=== PATIENT | male | born 1965 | race African-American/Black ===

== ENCOUNTER 2018-01-22 10:01 | Observation (INO) | payer OTHER ==
[2018-01-22] MEDS ORDERED: ONDANSETRON ODT 8 MG TAB.RAPDIS PO STA (10:29)
[2018-01-22] MEDS ORDERED: MORPHINE SULFATE 4 MG/ML SYRINGE IVP STA ×3 (10:29→12:34)
[2018-01-22] MEDS ORDERED: SODIUM CHLORIDE 0.9% 1,000 ML IV STA ×2 (10:29→11:08)
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
[2018-01-22] MEDS ORDERED: ONDANSETRON 4 MG/2 ML VIAL IVP STA ×2 (10:53→12:19)
--- NOTE | 2018-01-22 11:14 | XR ---
EXAMINATION TYPE: XR KUB DATE OF EXAM: 01/22/2018 COMPARISON: 11/05/2017 HISTORY: Abdominal pain and nausea TECHNIQUE: One view abdominal series FINDINGS: The osseous structures are intact. The bowel gas pattern is nonspecific. Curvature the spine with po stsurgical change. Arthropathy of the hips. IMPRESSION: 1. Nonspecific abdomen.
[2018-01-22 11:18] LABS: ALT 44 U/L (21-72); AST 31 U/L (17-59); Albumin 4.5 g/dL (3.5-5.0); Alkaline Phosphatase 153 U/L (38-126); Amylase 58 U/L (30-110); Anion Gap 13 mmol/L; Blood Urea Nitrogen 15 mg/dL (9-20); Calcium 9.6 mg/dL (8.4-10.2); Carbon Dioxide 26 mmol/L (22-30); Chloride 105 mmol/L (98-107); Glucose 99 mg/dL (74-99); Lipase 53 U/L (23-300); Potassium 4.2 mmol/L (3.5-5.1); Sodium 144 mmol/L (137-145); Total Bilirubin 0.3 mg/dL (0.2-1.3); Total Protein 7.9 g/dL (6.3-8.2)
[2018-01-22 11:20] LABS: Basophils % (A) 1 %; Eosinophils # (A) 0.2 k/uL (0-0.7); Eosinophils % (A) 3 %; HCT 39.5 % (39.0-53.0); HGB 12.5 gm/dL (13.0-17.5); Lymphocytes # (A) 1.2 k/uL (1.0-4.8); Lymphocytes % (A) 18 %; MCH 27.1 pg (25.0-35.0); MCHC 31.7 g/dL (31.0-37.0); MCV 85.3 fL (80.0-100.0); Mean Platelet Volume 7.6; Monocytes # (A) 0.7 k/uL (0-1.0); Monocytes % (A) 10 %; Neutrophils # (A) 4.5 k/uL (1.3-7.7); Neutrophils % (A) 65 %; Platelet Count 216 k/uL (150-450); RBC 4.63 m/uL (4.30-5.90); RDW 14.5 % (11.5-15.5); WBC 6.9 k/uL (3.8-10.6)
[2018-01-22 11:27] LABS: Creatine Kinase 399 U/L (55-170)
[2018-01-22 11:40] LABS: Creatine Kinase MB 1.4 ng/mL (0.0-2.4); Troponin I <0.012 ng/mL (0.000-0.034)
[2018-01-22 12:27] LABS: Appearance,Urine Clear (Clear); Bilirubin,Urine Negative (Negative); Blood,Urine Negative (Negative); Color,Urine Light Yellow; Glucose,Urine (UA) Negative (Negative); Ketones,Urine Negative (Negative); Leukocyte Esterase,Urine Negative (Negative); Nitrite,Urine Negative (Negative); PH, Urine 7.5 (5.0-8.0); Protein,Urine Negative (Negative); Specific Gravity,Urine 1.008 (1.001-1.035); Urobilinogen,Urine <2.0 mg/dL (<2.0)
[2018-01-22 12:40] LABS: Amphetamine Screen,Urine Not Detected (NotDetected); Barbiturate Screen,Urine Not Detected (NotDetected); Benzodiazepines Screen,Urine Not Detected (NotDetected); Cocaine Screen,Urine Not Detected (NotDetected); Methadone Screen, Urine Not Detected (NotDetected); Opiate Screen,Urine Detected (NotDetected); Oxycodone Screen, Urine Not Detected (NotDetected); Phencyclidine Screen,Urine Not Detected (NotDetected); Tricyclic Antidepressant,Urine Not Detected (NotDetected); Urn Cannabinoid Scrn Detected (NotDetected)
--- NOTE | 2018-01-22 13:44 | US ---
EXAMINATION TYPE: US gallbladder DATE OF EXAM: 01/22/2018 COMPARISON: 11/05/2017 CT CLINICAL HISTORY: RUQ, Epigastric Pain. Cholecystectomy. Difficult and limited exam due to patient pa in- moving and moaning during exam. EXAM MEASUREMENTS: Liver Length: 16.5 cm Gallbladder Wall: Surgically absent CBD: 0.6 cm Right Kidney: 10.6 x 4.7 x 4.8 cm Pancreas: Tail obscured by overlying bowel gas, visualized portions show no abnormality Liver: wnl Gallbladder: Surgically absent CBD: wnl Right Kidney: No hydronephrosis or masses seen IMPRESSION: 1. Postcholecystectomy changes. No evidence of biliary dilation.
[2018-01-22] MEDS ORDERED: NITROGLYCERIN SL TABS 0.4 MG TAB SUBLINGUAL STA (15:04)
[2018-01-22] MEDS ORDERED: SODIUM CHLORIDE 0.9% 1,000 ML IV ONE (15:59)
[2018-01-22] MEDS ORDERED: MORPHINE SULFATE 4 MG/ML SYRINGE IVP PRN (16:01)
[2018-01-22] MEDS: ONDANSETRON 4 MG/2 ML VIAL IVP PRN (16:50)
[2018-01-22 17:30] VITALS: BMI 30.4
[2018-01-22] MEDS ORDERED: HYDROmorphone 0.5 MG/0.5 ML SYRINGE IVP PRN (17:44)
[2018-01-22] MEDS: MORPHINE SULFATE 4 MG/ML SYRINGE IVP PRN ×2 (18:45→22:18)
[2018-01-22] MEDS ORDERED: MAG HYDROX/AL HYDROX/SIMETH 30 ML, HYOSCYAMINE ELIXIR 10 ML, CIMETIDINE HCL 300 MG, LID... PO ONE ×4 (19:11)
[2018-01-22] MEDS ORDERED: PANTOPRAZOLE 40 MG/10 ML VIAL IVP ONE (19:11)
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
[2018-01-22] MEDS: LOSARTAN 25 MG TAB PO SCH ×2 (20:43→20:59)
[2018-01-22] MEDS: SILDENAFIL 20 MG TAB PO SCH (20:44)
[2018-01-22] MEDS: amLODIPine 5 MG TAB PO SCH ×2 (20:44→20:59)
[2018-01-22] MEDS ORDERED: ALPRAZolam 0.25 MG TAB PO STA (23:10)
[2018-01-22] MEDS ORDERED: LORazepam 2 MG/ML INJ IV STA (23:27)
[2018-01-23] MEDS: MORPHINE SULFATE 4 MG/ML SYRINGE IVP PRN ×2 (02:24→05:54)
[2018-01-23 07:00] VITALS: BP 134/71; PULSE 66; RESP 14; TEMP 98
[2018-01-23] MEDS ORDERED: MAG HYDROX/AL HYDROX/SIMETH 30 ML, HYOSCYAMINE ELIXIR 10 ML, CIMETIDINE HCL 300 MG, LID... PO ONE ×4 (09:00)
--- NOTE | 2018-01-23 09:24 | P.DS ---
Providers Date of admission: 01/22/18 15:59 Expected date of discharge: 01/23/18 Attending physician: Anna Berry Primary care physician: Stated None Hospital Course: The patient is a 52-year-old gentleman well-known to me with history of esophageal dysmotility. He had a previous upper endoscopy demonstrating a symptomatic diaphragmatic hernia. For at least 2 year, his symptoms has been well treated with nitrates including Bentyl for his abdominal pain. He reports this morning having his usual routine of oatmeal. Thereafter he had developed acute onset epigastric abdominal pain which had radiated to the left chest as well as right upper quadrant abdominal pain. His history is also significant for previous cholecystectomy as well as appendectomy as well as multiple upper and lower endoscopies as a result. He completed a the manometry system demonstrating jackhammer esophagus which is being medically treated. On the day of discharge patient's symptoms had improved. 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 2. Diaphragmatic hiatal hernia. 3. Gastroesophageal reflux disease. 4. Atypical chest pain. The above impression and plan of care have been discussed and directed by signing physician. Nadia Valles nurse practitioner acting as scribe for signing physician. Plan - Discharge Summary Discharge Rx Participant: No New Discharge Prescriptions: New Lidocaine Viscous 2% [Xylocaine Viscous] 15 ml MUCOUS MEM DIRECTED PRN # 400 ml PRN Reason: Spasms Hyoscyamine Elixir [Levsin 0.125MG/ML Drops] 0.125 mg PO Q6HR PRN #20 ml PRN Reason: Spasms Simethicone 40 mg/0.6 ml Drops [Mylicon Drops] 40 mg PO QID PRN #30 ml PRN Reason: Spasms Continue Dicyclomine [Bentyl] 10 mg PO TID PRN PRN Reason: stomach amLODIPine BESYLATE [Norvasc] 5 mg PO DAILY Losartan [Cozaar] 25 mg PO DAILY oxyCODONE-APAP 10-325MG [Percocet 10-325 mg] 1 tab PO Q8H PRN PRN Reason: Pain Discharge Medication List Dicyclomine [Bentyl] 10 mg PO TID PRN 06/27/16 [History] amLODIPine BESYLATE [Norvasc] 5 mg PO DAILY 08/15/16 [History] Losartan [Cozaar] 25 mg PO DAILY 11/05/17 [History] oxyCODONE-APAP 10-325MG [Percocet 10-325 mg] 1 tab PO Q8H PRN 01/22/18 [History] Hyoscyamine Elixir [Levsin 0.125MG/ML Drops] 0.125 mg PO Q6HR PRN #20 ml [Rx] Lidocaine Viscous 2% [Xylocaine Viscous] 15 ml MUCOUS MEM DIRECTED PRN #400 ml 01/23/18 [Rx] Simethicone 40 mg/0.6 ml Drops [Mylicon Drops] 40 mg PO QID PRN #30 ml 01/23/18 [Rx] Follow up Appointment(s)/Referral(s): Anna Berry MD [STAFF PHYSICIAN] - 02/05/18 None,Stated [Primary Care Provider] - 1-2 days Patient Instructions/Handouts: Esophageal Spasm (GEN) Discharge Disposition: HOME SELF-CARE
[2018-01-23] MEDS: SILDENAFIL 20 MG TAB PO SCH (09:54)
[2018-01-23] MEDS: amLODIPine 5 MG TAB PO SCH (09:54)
[2018-01-23] MEDS: ONDANSETRON 4 MG/2 ML VIAL IVP PRN (09:54)
[2018-01-23] MEDS: LOSARTAN 25 MG TAB PO SCH (09:54)
== END 2018-01-23 10:43 | disposition home or self-care (01) ==
LOC: EC 10:01 → INTOOBSV 15:59 → 4MS4W 15:59 → UNDODISIN 01-23 10:43
PROVIDERS: ADMIT Surgery Plastic and Reconstructive Surgery; ATTEND Surgery Plastic and Reconstructive Surgery
DX: K22.4 Dyskinesia of esophagus (principal); I10 Essential (primary) hypertension; K21.9 Gastro-esophageal reflux disease without esophagitis; K44.9 Diaphragmatic hernia without obstruction or gangrene; R07.89 Other chest pain; M19.90 Unspecified osteoarthritis, unspecified site; M48.00 Spinal stenosis, site unspecified; Z98.1 Arthrodesis status; Z87.891 Personal history of nicotine dependence; Z82.49 Family history of ischemic heart disease and other diseases of the circulatory system; Z82.61 Family history of arthritis; Z90.89 Acquired absence of other organs; Z79.899 Other long term (current) drug therapy; Z90.49 Acquired absence of other specified parts of digestive tract; Z79.891 Long term (current) use of opiate analgesic; Z88.8 Allergy status to other drugs, medicaments and biological substances; Z91.041 Radiographic dye allergy status; Z91.013 Allergy to seafood; Z87.828 Personal history of other (healed) physical injury and trauma
CPT/HCPCS: 96376 ×3; 96375 ×2; 96361; 96374; 99285; 36415; 93005; 80053; 82150; 82550; 82553; 83605; 83690; 83735; 84484; 85025; 81003; 80306; 74018; 76705; G0378 ×2; J2060; J2270 ×2; J2405 ×2; C9113

== ENCOUNTER 2018-03-03 13:22 | Observation (INO) | payer OTHER ==
[2018-03-03] MEDS ORDERED: SODIUM CHLORIDE 0.9% 1,000 ML IV STA (13:48)
[2018-03-03] MEDS ORDERED: KETOROLAC 30 MG/ML 1 ML VIAL IVP STA (13:48)
[2018-03-03] MEDS ORDERED: FAMOTIDINE 20 MG/2 ML VIAL IV STA (13:49)
[2018-03-03] MEDS: ONDANSETRON 4 MG/2 ML VIAL IVP STA ×2 (14:12→15:39)
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
[2018-03-03] MEDS: MORPHINE SULFATE 4MG/4ML SYRG IV STA ×2 (14:13→14:50)
[2018-03-03 14:33] LABS: HGB 12.6 gm/dL (13.0-17.5); MCHC 32.3 g/dL (31.0-37.0); MCV 83.5 fL (80.0-100.0); Mean Platelet Volume 7.8; Platelet Count 219 k/uL (150-450); RBC 4.67 m/uL (4.30-5.90); RDW 14.6 % (11.5-15.5); WBC 4.8 k/uL (3.8-10.6)
[2018-03-03 14:34] LABS: ALT 58 U/L (21-72); AST 37 U/L (17-59); Albumin 4.5 g/dL (3.5-5.0); Alkaline Phosphatase 153 U/L (38-126); Amylase 69 U/L (30-110); Anion Gap 14 mmol/L; Blood Urea Nitrogen 15 mg/dL (9-20); Calcium 9.5 mg/dL (8.4-10.2); Carbon Dioxide 24 mmol/L (22-30); Chloride 104 mmol/L (98-107); Glucose 99 mg/dL (74-99); Lipase 55 U/L (23-300); Potassium 4.2 mmol/L (3.5-5.1); Sodium 142 mmol/L (137-145); Total Bilirubin 0.3 mg/dL (0.2-1.3)
[2018-03-03] MEDS ORDERED: MORPHINE SULFATE 4MG/4ML SYRG ONE (14:49)
[2018-03-03 15:08] LABS: Band Neutrophils % 1 %; Eosinophils # (M) 0.38 k/uL (0-0.7); Lymphocytes # (M) 1.49 k/uL (1.0-4.8); Monocytes # (M) 0.43 k/uL (0-1.0); Neutrophils % (M) 51 %; Nucleated Red Blood Cells 0 /100 WBC (0-0); Total Cells Counted 100
[2018-03-03] MEDS ORDERED: MORPHINE SULFATE 4MG/4ML SYRG IVP STA (15:29)
--- NOTE | 2018-03-03 15:29 | XR ---
EXAMINATION TYPE: XR KUB DATE OF EXAM: 03/03/2018 COMPARISON: 01/22/2018 INDICATION: Abdominal pain, nausea, vomiting TECHNIQUE: Single view abdomen supine view. Upright views obtained. FINDINGS: Nonspecific bowel gas is present. There is a prominent air-filled small bowel loop within the left mi dabdomen. Additional air-filled loops of bowel are present. Air is within the colon. No free air is e vident. Differential air-fluid levels are not evident. Psoas margins are normal. No organomegaly is present. Postsurgical changes are within the lumbar spine. IMPRESSION: 1. Nonspecific abdomen.
[2018-03-03 15:31] LABS: Appearance,Urine Clear (Clear); Bilirubin,Urine Negative (Negative); Blood,Urine Negative (Negative); Color,Urine Light Yellow; Glucose,Urine (UA) Negative (Negative); Ketones,Urine Negative (Negative); Leukocyte Esterase,Urine Negative (Negative); Nitrite,Urine Negative (Negative); PH, Urine 6.5 (5.0-8.0); Protein,Urine Negative (Negative); Specific Gravity,Urine 1.011 (1.001-1.035); Urobilinogen,Urine <2.0 mg/dL (<2.0)
[2018-03-03] MEDS ORDERED: DICYCLOMINE 10 MG/ML 2 ML AMP IM STA (15:48)
[2018-03-03] MEDS: NITROGLYCERIN SL TABS 0.4 MG TAB SUBLINGUAL STA ×3 (16:08→17:24)
[2018-03-03] MEDS ORDERED: MAG HYDROX/AL HYDROX/SIMETH 30 ML, HYOSCYAMINE ELIXIR 10 ML, CIMETIDINE HCL 300 MG, LID... PO ONE ×8 (18:10→18:15)
[2018-03-03] MEDS ORDERED: NALOXONE 0.4 MG/ML 1 ML VIAL IV PRN (18:10)
[2018-03-03] MEDS: MORPHINE SULFATE 4MG/4ML SYRG IV PRN ×2 (19:33→22:38)
[2018-03-03] MEDS: ONDANSETRON 4 MG/2 ML VIAL IVP PRN (19:34)
[2018-03-04] MEDS: MAG HYDROX/AL HYDROX/SIMETH 30 ML, HYOSCYAMINE ELIXIR 10 ML, CIMETIDINE HCL 300 MG, LID... PO SCH ×16 (01:58→17:30)
[2018-03-04] MEDS: MORPHINE SULFATE 4MG/4ML SYRG IV PRN ×4 (01:59→13:07)
[2018-03-04] MEDS: ONDANSETRON 4 MG/2 ML VIAL IVP PRN (05:23)
[2018-03-04] MEDS ORDERED: LOSARTAN 25 MG TAB PO SCH (09:00)
[2018-03-04] MEDS ORDERED: PANTOPRAZOLE 40 MG/10 ML VIAL IV SCH (09:00)
[2018-03-04] MEDS ORDERED: amLODIPine 5 MG TAB PO SCH (09:00)
[2018-03-04] MEDS ORDERED: SODIUM CHLORIDE 0.9% 1,000 ML IV SCH (11:00)
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
[2018-03-04] MEDS ORDERED: fentaNYL (PF) 50 MCG/ML 2 ML AMP ONE (14:31)
[2018-03-04] MEDS ORDERED: LIDOCAINE 1% INJ 10MG/ML (20 ML MDV) ONE (14:31)
[2018-03-04] MEDS ORDERED: PROPOFOL 10 MG/ML 20 ML VIAL IV ONE (14:31)
[2018-03-04] MEDS ORDERED: GLYCOPYRROLATE 0.2 MG/ML 2 ML VIAL ONE (14:31)
[2018-03-04] MEDS ORDERED: IV FLUID CONTINUATION 600 ML IV ONE (14:50)
--- NOTE | 2018-03-04 14:56 | P.PCN ---
Date of Procedure: 03/04/18 Description of Procedure: PREOPERATIVE DIAGNOSIS: Gastroesophageal reflux disease. Jackhammer esophagus Hematemesis Epigastric abdominal pain POSTOPERATIVE DIAGNOSIS: Gastroesophageal reflux disease. Jackhammer esophagus Hematemesis Epigastric abdominal pain Diaphragmatic hiatal hernia without obstruction. OPERATION: Esophagogastroduodenoscopy with biopsies along antrum. SURGEON: Anna Berry MD ANESTHESIA: MAC. INDICATIONS: The patient is a 52-year-old male who presents with a history of reflux disease and hematemesis. Benefits and risks of the procedure were described. Informed consent was obtained. DESCRIPTION: The patient was brought into the endoscopy suite and laid in the left lateral decubitus position. An Olympus gastroscope was passed along the posterior oropharynx down to the distal esophagus where the squamocolumnar junction was encountered at 42 cm from the incisors. The stomach was entered and bile reflux was found and aspirated. Additional findings are listed below. Biopsies with cold forceps were obtained of the antrum. The first through third portion of the duodenum was examined and unremarkable. Retroflexion of the scope confirmed Hill grade 4 lower esophageal valve. The squamocolumnar junction demostrated early and acute LA grade A erosive esophagitis. The stomach was desufflated. The patient tolerated the procedure well. FINDINGS: Squamocolumnar junction 42 cm from the incisors. Diaphragmatic hiatus at 45 cm. Hiatal hernia 3 cm. Hill grade 4 lower esophageal valve. LA grade A erosive esophagitis. No active duodenitis. Superficial gastritis RECOMMENDATIONS: Continue medical therapy. Further recommendations pending results of pathology report. Upper endoscopy as needed. Will benefit from antireflux surgical procedure
[2018-03-04 15:52] VITALS: BP 145/81; PULSE 73; RESP 16; TEMP 98
== END 2018-03-04 18:35 | disposition home or self-care (01) ==
LOC: EC 13:22 → 3SUR 18:10
PROVIDERS: ADMIT Surgery Plastic and Reconstructive Surgery; ATTEND Surgery Plastic and Reconstructive Surgery
DX: R11.2 Nausea with vomiting, unspecified (principal); R10.13 Epigastric pain; R10.31 Right lower quadrant pain; R10.9 Unspecified abdominal pain; K21.0 Gastro-esophageal reflux disease with esophagitis; K44.9 Diaphragmatic hernia without obstruction or gangrene; K22.10 Ulcer of esophagus without bleeding; K92.0 Hematemesis; R19.7 Diarrhea, unspecified; I10 Essential (primary) hypertension; M54.9 Dorsalgia, unspecified; K59.00 Constipation, unspecified; M19.90 Unspecified osteoarthritis, unspecified site; M48.00 Spinal stenosis, site unspecified; Z98.1 Arthrodesis status; G89.29 Other chronic pain; M54.5 Low back pain; Z90.49 Acquired absence of other specified parts of digestive tract; Z87.891 Personal history of nicotine dependence; Z79.899 Other long term (current) drug therapy; Z91.041 Radiographic dye allergy status; Z91.02 Food additives allergy status; Z91.013 Allergy to seafood
CPT/HCPCS: 36415; 43239; 74018; 80053; 81003; 82150; 83605; 83690; 85025; 88305; 93005; 96361; 96372; 96374; 96375; 96376; 99285

== ENCOUNTER 2018-03-27 06:34 | Emergency (ER) | payer OTHER ==
[2018-03-27] MEDS ORDERED: MORPHINE SULFATE 4 MG/ML SYRINGE IV STA (06:49)
[2018-03-27] MEDS ORDERED: ONDANSETRON 4 MG/2 ML VIAL IVP STA (06:49)
[2018-03-27 07:09] LABS: Basophils % (A) 1 %; Eosinophils # (A) 0.3 k/uL (0-0.7); Eosinophils % (A) 5 %; HCT 38.4 % (39.0-53.0); HGB 12.4 gm/dL (13.0-17.5); Lymphocytes # (A) 1.7 k/uL (1.0-4.8); Lymphocytes % (A) 33 %; MCH 26.6 pg (25.0-35.0); MCHC 32.2 g/dL (31.0-37.0); MCV 82.5 fL (80.0-100.0); Mean Platelet Volume 7.6; Monocytes # (A) 0.7 k/uL (0-1.0); Monocytes % (A) 13 %; Neutrophils # (A) 2.2 k/uL (1.3-7.7); Neutrophils % (A) 43 %; Platelet Count 224 k/uL (150-450); RBC 4.66 m/uL (4.30-5.90); RDW 14.3 % (11.5-15.5)
[2018-03-27 07:21] LABS: ALT 40 U/L (21-72); AST 40 U/L (17-59); Albumin 4.4 g/dL (3.5-5.0); Alkaline Phosphatase 129 U/L (38-126); Amylase 60 U/L (30-110); Anion Gap 16 mmol/L; Blood Urea Nitrogen 18 mg/dL (9-20); Calcium 9.3 mg/dL (8.4-10.2); Carbon Dioxide 21 mmol/L (22-30); Chloride 108 mmol/L (98-107); Glucose 98 mg/dL (74-99); Lipase 76 U/L (23-300); Potassium 4.5 mmol/L (3.5-5.1); Sodium 145 mmol/L (137-145); Total Bilirubin 0.5 mg/dL (0.2-1.3); Total Protein 7.8 g/dL (6.3-8.2)
[2018-03-27 07:39] LABS: Creatine Kinase 436 U/L (55-170)
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
[2018-03-27 07:52] LABS: Creatine Kinase MB 1.7 ng/mL (0.0-2.4); Troponin I <0.012 ng/mL (0.000-0.034)
--- NOTE | 2018-03-27 08:00 | XR ---
EXAMINATION TYPE: XR chest 2V DATE OF EXAM: 03/27/2018 COMPARISON: 10/03/2016 HISTORY: 52-year-old male with right flank and abdominal pain TECHNIQUE: PA and lateral views FINDINGS: Heart normal size. Aorta within normal limits. Mild interstitial prominence is similar. No consolidat ion or pleural effusion. IMPRESSION: Chronic changes, possible chronic bronchitis/asthma. No acute cardiopulmonary process.
--- NOTE | 2018-03-27 08:01 | XR ---
EXAMINATION TYPE: XR KUB DATE OF EXAM: 03/27/2018 CLINICAL DATA: 52-year-old male with abdominal pain, [facility] COMPARISON: 03/03/2018 FINDINGS: Lung bases are clear. No evidence for free intraperitoneal air. Scattered small bowel and colonic gas is present without any differential air-fluid levels abnormal b owel dilatation. Lumbar fusion hardware. No suspicious calcifications. Degenerative changes at both hips. IMPRESSION: Nonspecific, nonobstructive bowel gas pattern. No free air.
[2018-03-27 08:52] VITALS: RESP 18
[2018-03-27 09:06] LABS: Appearance,Urine Clear (Clear); Bilirubin,Urine Negative (Negative); Blood,Urine Negative (Negative); Color,Urine Light Yellow; Glucose,Urine (UA) Negative (Negative); Ketones,Urine Negative (Negative); Leukocyte Esterase,Urine Negative (Negative); Nitrite,Urine Negative (Negative); PH, Urine 5.5 (5.0-8.0); Protein,Urine Negative (Negative); Specific Gravity,Urine 1.015 (1.001-1.035); Urobilinogen,Urine <2.0 mg/dL (<2.0)
[2018-03-27] MEDS ORDERED: KETOROLAC 60 MG/2 ML VIAL IVP STA (09:17)
[2018-03-27 09:41] VITALS: BP 163/75; PULSE 65; TEMP 98.1
== END 2018-03-27 09:52 | disposition home or self-care (01) ==
LOC: EC 06:34
DX: R10.9 Unspecified abdominal pain (principal); G89.29 Other chronic pain; I10 Essential (primary) hypertension; Z90.49 Acquired absence of other specified parts of digestive tract; Z91.013 Allergy to seafood; Z91.041 Radiographic dye allergy status; Z91.048 Other nonmedicinal substance allergy status; Z79.899 Other long term (current) drug therapy; Z87.891 Personal history of nicotine dependence
CPT/HCPCS: 99285; 96374; 96375 ×2; 36415; 93005; 80053; 82150; 82550; 82553; 83690; 84484; 85025; 81003; 71046; 74018; J2270; J2405; J1885

== ENCOUNTER 2018-06-17 09:31 | Emergency (ER) | payer OTHER ==
[2018-06-17] MEDS ORDERED: MAG HYDROX/AL HYDROX/SIMETH 30 ML, HYOSCYAMINE ELIXIR 10 ML, CIMETIDINE HCL 300 MG, LID... PO STA ×4 (09:43)
[2018-06-17] MEDS ORDERED: SODIUM CHLORIDE 0.9% 1,000 ML IV STA (09:43)
[2018-06-17] MEDS ORDERED: ONDANSETRON 4 MG/2 ML VIAL IVP STA (09:43)
[2018-06-17] MEDS ORDERED: KETOROLAC 30 MG/ML 1 ML VIAL IVP STA (09:43)
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
[2018-06-17 10:12] LABS: HCT 39.1 % (39.0-53.0); HGB 12.6 gm/dL (13.0-17.5); MCH 26.6 pg (25.0-35.0); MCHC 32.1 g/dL (31.0-37.0); MCV 82.8 fL (80.0-100.0); Mean Platelet Volume 7.9; Platelet Count 205 k/uL (150-450); RBC 4.72 m/uL (4.30-5.90); RDW 15.1 % (11.5-15.5)
[2018-06-17] MEDS ORDERED: MORPHINE SULFATE 4 MG/ML SYRINGE IVP STA (10:19)
[2018-06-17 10:22] LABS: Amylase 91 U/L (30-110); Lipase 110 U/L (23-300)
[2018-06-17 10:23] LABS: ALT 58 U/L (21-72); AST 38 U/L (17-59); Albumin 4.5 g/dL (3.5-5.0); Alkaline Phosphatase 138 U/L (38-126); Anion Gap 9 mmol/L; Blood Urea Nitrogen 21 mg/dL (9-20); Calcium 9.4 mg/dL (8.4-10.2); Carbon Dioxide 23 mmol/L (22-30); Chloride 110 mmol/L (98-107); Glucose 99 mg/dL (74-99); Partial Thromboplastin Time 25.3 sec (22.0-30.0); Potassium 4.3 mmol/L (3.5-5.1); Sodium 142 mmol/L (137-145); Total Bilirubin 0.3 mg/dL (0.2-1.3)
[2018-06-17 10:43] LABS: Appearance,Urine Clear (Clear); Bilirubin,Urine Negative (Negative); Blood,Urine Negative (Negative); Color,Urine Light Yellow; Glucose,Urine (UA) Negative (Negative); Ketones,Urine Negative (Negative); Leukocyte Esterase,Urine Negative (Negative); Nitrite,Urine Negative (Negative); PH, Urine 5.5 (5.0-8.0); Protein,Urine Negative (Negative); Specific Gravity,Urine 1.013 (1.001-1.035); Urobilinogen,Urine <2.0 mg/dL (<2.0)
[2018-06-17 10:43] LABS: Band Neutrophils % 1 %; Basophils # (M) 0.05 k/uL (0-0.2); Neutrophils % (M) 44 %; Nucleated Red Blood Cells 0 /100 WBC (0-0); Total Cells Counted 100
--- NOTE | 2018-06-17 11:10 | XR ---
EXAMINATION TYPE: XR KUB DATE OF EXAM: 06/17/2018 COMPARISON: 03/27/2018 HISTORY: Pain TECHNIQUE: One view abdominal series FINDINGS: The osseous structures are intact. The bowel gas pattern is nonspecific. Lung bases are clear. Post surgical changes are noted with hypertrophic and degenerative change of the spine. Few prominent smal l bowel loops are noted. Arthropathy of the hip joints. IMPRESSION: 1. Nonspecific abdomen. There are few prominent small bowel loops could be associated with an ileus or enteritis. Partial obstruction not entirely excluded correlate clinically.
[2018-06-17] MEDS ORDERED: methylPREDNISolone SOD SUCCI 125 MG/2 ML VIAL IV STA (11:13)
[2018-06-17] MEDS ORDERED: diphenhydrAMINE 50 MG/ML 1 ML VIAL IVP STA (11:13)
[2018-06-17] MEDS ORDERED: FAMOTIDINE 20 MG/2 ML VIAL IV STA (11:13)
[2018-06-17] MEDS ORDERED: fentaNYL (PF) 50 MCG/ML 2 ML AMP IV STA (11:33)
--- NOTE | 2018-06-17 12:27 | CT ---
EXAMINATION TYPE: CT abdomen pelvis w con DATE OF EXAM: 06/17/2018 COMPARISON: None INDICATION: Right sided pain with nausea DLP: 1084.4 mGycm, Automated exposure control for dose reduction was used. CONTRAST: 100 mL of Isovue 300. Study performed without Oral Contrast TECHNIQUE: Axial images were obtained from above the diaphragm to the pubic rami in the axial plane a t 5 mm thick sections. Reconstructed images are reviewed on the computer in the coronal plane. FINDINGS: Limited CT sections are obtained the lung bases. The lung bases are clear. CT ABDOMEN: Liver: Normal Spleen: Normal Pancreas: Normal Adrenal glands: The adrenal glands are normal. Gallbladder: Not visualized. Kidneys: No masses are evident. No hydronephrosis is present. No cysts are present. Delayed images were obtained through the kidneys, which remain unremarkable. Aorta: Vascular calcification is within the aorta. Inferior vena cava: Normal. CT PELVIS: There is some limitation within the mid abdomen and pelvis due to beam hardening artifact from prior lumbar surgery. Loops of bowel within the abdomen and pelvis are normal. Studies performed without oral contrast limiting the evaluation. Appendix: What appears to be a be the appendix is normal. No suspicious dilated tubular structure inf lammatory changes are evident. Urinary bladder: Decompressed with some limited evaluation. Genitourinary structures: Prostate appears within normal limits. Osseous structures: No suspicious lytic or sclerotic lesions. Postsurgical changes are through the inna mbar spine. IMPRESSIONS: 1. No suspicious abnormality to account for patient's right side abdomen pain
[2018-06-17] MEDS ORDERED: ONDANSETRON 4 MG ODT STARTER PACK 2 TAB BTL PO STA (12:42)
[2018-06-17 13:23] VITALS: BP 132/64; PULSE 68; RESP 18; TEMP 96.9
== END 2018-06-17 13:23 | disposition home or self-care (01) ==
LOC: EC 09:31
DX: R10.11 Right upper quadrant pain (principal); R10.13 Epigastric pain; G89.29 Other chronic pain; R11.2 Nausea with vomiting, unspecified; R19.7 Diarrhea, unspecified; I10 Essential (primary) hypertension; K21.9 Gastro-esophageal reflux disease without esophagitis; Z87.891 Personal history of nicotine dependence; Z79.899 Other long term (current) drug therapy; Z91.041 Radiographic dye allergy status; Z91.013 Allergy to seafood; Z91.018 Allergy to other foods; Z87.19 Personal history of other diseases of the digestive system; Z90.49 Acquired absence of other specified parts of digestive tract
CPT/HCPCS: 99284; 96374; 96375 ×6; 96361; 36415; 80053; 82150; 83690; 85025; 85610; 85730; 81003; 74018; 74177; J2270; J1200; J2930; J2405; J3010; J1885; S0119; Q9967

== ENCOUNTER 2018-07-20 10:08 | Emergency (ER) | payer OTHER ==
[2018-07-20 10:15] VITALS: RESP 18
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
[2018-07-20 11:07] LABS: Basophils % (A) 1 %; Eosinophils # (A) 0.3 k/uL (0-0.7); Eosinophils % (A) 6 %; HCT 39.1 % (39.0-53.0); HGB 12.5 gm/dL (13.0-17.5); Lymphocytes # (A) 1.4 k/uL (1.0-4.8); Lymphocytes % (A) 36 %; MCH 26.6 pg (25.0-35.0); MCHC 31.9 g/dL (31.0-37.0); MCV 83.4 fL (80.0-100.0); Mean Platelet Volume 7.7; Monocytes # (A) 0.5 k/uL (0-1.0); Monocytes % (A) 12 %; Neutrophils # (A) 1.6 k/uL (1.3-7.7); Neutrophils % (A) 41 %; Platelet Count 216 k/uL (150-450); RBC 4.69 m/uL (4.30-5.90); RDW 14.7 % (11.5-15.5); WBC 3.9 k/uL (3.8-10.6)
[2018-07-20 11:20] LABS: Partial Thromboplastin Time 25.6 sec (22.0-30.0); Prothrombin Time 9.8 sec (9.0-12.0)
[2018-07-20 11:23] LABS: ALT 40 U/L (21-72); AST 29 U/L (17-59); Albumin 4.1 g/dL (3.5-5.0); Alkaline Phosphatase 116 U/L (38-126); Anion Gap 10 mmol/L; Blood Urea Nitrogen 19 mg/dL (9-20); Calcium 9.2 mg/dL (8.4-10.2); Carbon Dioxide 24 mmol/L (22-30); Chloride 107 mmol/L (98-107); Glucose 98 mg/dL (74-99); Potassium 4.2 mmol/L (3.5-5.1); Sodium 141 mmol/L (137-145); Total Bilirubin 0.4 mg/dL (0.2-1.3); Total Protein 7.7 g/dL (6.3-8.2)
--- NOTE | 2018-07-20 11:33 | CT ---
EXAMINATION TYPE: CT brain wo con DATE OF EXAM: 07/20/2018 COMPARISON: NONE HISTORY: left sided facial numbness CT DLP: 1031.2 mGycm Automated exposure control for dose reduction was used. FINDINGS: Central structures are midline. There is no evidence of hydrocephalus. No acute focal lesion, mass ef fect or midline shift is seen. I do not see evidence of intracranial blood. There is a 1.9 cm retention cyst or polyp in the right maxillary sinus. There is mild mucosal thicken ing involving the ethmoid sinuses. The bony calvarium is intact. IMPRESSION: 1. NO ACUTE INTRACRANIAL ABNORMALITY. 2. SINUS MUCOSAL DISEASE.
[2018-07-20 12:34] VITALS: BP 147/87; PULSE 51; TEMP 98.3
== END 2018-07-20 12:34 | disposition home or self-care (01) ==
LOC: EC 10:08
DX: H11.32 Conjunctival hemorrhage, left eye (principal); R51 Headache; I10 Essential (primary) hypertension; Z87.891 Personal history of nicotine dependence; Z79.899 Other long term (current) drug therapy; Z91.041 Radiographic dye allergy status; Z91.013 Allergy to seafood; Z91.048 Other nonmedicinal substance allergy status
CPT/HCPCS: 36415; 70450; 80053; 84484; 85025; 85610; 85730; 93005; 99284

== ENCOUNTER 2018-11-10 12:17 | Observation (INO) | payer OTHER ==
[2018-11-10] MEDS ORDERED: FAMOTIDINE 20 MG/2 ML VIAL IV STA (13:08)
[2018-11-10] MEDS ORDERED: LORazepam 2 MG/ML INJ IV STA (13:08)
[2018-11-10] MEDS ORDERED: SODIUM CHLORIDE 0.9% 1,000 ML IV STA (13:08)
[2018-11-10] MEDS ORDERED: DICYCLOMINE 10 MG/ML 2 ML AMP IM STA (13:08)
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
[2018-11-10] MEDS: ONDANSETRON 4 MG/2 ML VIAL IVP STA ×2 (13:27→15:41)
[2018-11-10 14:07] LABS: Basophils % (A) 1 %; Eosinophils # (A) 0.2 k/uL (0-0.7); Eosinophils % (A) 4 %; HCT 41.7 % (39.0-53.0); HGB 12.8 gm/dL (13.0-17.5); Lymphocytes # (A) 1.4 k/uL (1.0-4.8); Lymphocytes % (A) 32 %; MCH 25.5 pg (25.0-35.0); MCHC 30.8 g/dL (31.0-37.0); MCV 82.9 fL (80.0-100.0); Mean Platelet Volume 7.2; Monocytes # (A) 0.4 k/uL (0-1.0); Monocytes % (A) 9 %; Neutrophils # (A) 2.2 k/uL (1.3-7.7); Neutrophils % (A) 50 %; Platelet Count 217 k/uL (150-450); RBC 5.03 m/uL (4.30-5.90); RDW 14.8 % (11.5-15.5); WBC 4.4 k/uL (3.8-10.6)
[2018-11-10 14:08] LABS: INR 0.9 (<1.2); Partial Thromboplastin Time 25.5 sec (22.0-30.0)
[2018-11-10 14:16] LABS: ALT 34 U/L (21-72); AST 27 U/L (17-59); Albumin 4.7 g/dL (3.5-5.0); Alkaline Phosphatase 128 U/L (38-126); Amylase 73 U/L (30-110); Anion Gap 11 mmol/L; Blood Urea Nitrogen 16 mg/dL (9-20); Calcium 9.6 mg/dL (8.4-10.2); Carbon Dioxide 23 mmol/L (22-30); Chloride 109 mmol/L (98-107); Glucose 98 mg/dL (74-99); Lipase 54 U/L (23-300); Potassium 4.2 mmol/L (3.5-5.1); Sodium 143 mmol/L (137-145); Total Bilirubin 0.4 mg/dL (0.2-1.3); Total Protein 8.6 g/dL (6.3-8.2)
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
[2018-11-10] MEDS ORDERED: diphenhydrAMINE 50 MG/ML 1 ML VIAL IVP STA (14:59)
[2018-11-10] MEDS ORDERED: MAG HYDROX/AL HYDROX/SIMETH 30 ML, HYOSCYAMINE ELIXIR 10 ML, CIMETIDINE HCL 300 MG, LID... PO STA ×4 (15:31)
[2018-11-10] MEDS ORDERED: SODIUM CHLORIDE 0.9% 2,000 ML IV STA (16:05)
[2018-11-10] MEDS ORDERED: ACETAMINOPHEN TAB 325 MG TAB PO PRN (16:07)
[2018-11-10] MEDS ORDERED: PANTOPRAZOLE 40 MG/10 ML VIAL IV SCH (16:15)
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
[2018-11-10] MEDS: KETOROLAC 30 MG/ML 1 ML VIAL IVP SCH ×2 (17:11→23:23)
[2018-11-10] MEDS: DEXAMETHASONE SOD PHOSPHATE 4 MG/ML 1 ML VIAL IV SCH ×2 (19:08→23:23)
[2018-11-10] MEDS: LORazepam 2 MG/ML INJ IV PRN (21:20)
[2018-11-10] MEDS: PANTOPRAZOLE 40 MG/10 ML VIAL IV SCH (21:20)
[2018-11-10] MEDS ORDERED: DICYCLOMINE 20 MG TAB PO SCH (22:00)
[2018-11-10] MEDS ORDERED: IMIPRAMINE 25 MG TAB PO SCH (22:15)
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
[2018-11-10] MEDS: HEPARIN SODIUM,PORCINE 5,000 UNIT/ML 1 ML VIAL SQ SCH (23:31)
[2018-11-10] MEDS ORDERED: cloNIDine HCL 0.2 MG TAB PO PRN (23:54)
[2018-11-11] MEDS: KETOROLAC 30 MG/ML 1 ML VIAL IVP SCH ×2 (05:54→12:04)
[2018-11-11] MEDS: DEXAMETHASONE SOD PHOSPHATE 4 MG/ML 1 ML VIAL IV SCH (05:55)
[2018-11-11 06:38] LABS: Appearance,Urine Clear (Clear); Bilirubin,Urine Negative (Negative); Blood,Urine Small (Negative); Color,Urine Yellow; Glucose,Urine (UA) Negative (Negative); Ketones,Urine 1+ (Negative); Leukocyte Esterase,Urine Negative (Negative); Mucus,Urine Rare /hpf; Nitrite,Urine Negative (Negative); PH, Urine 6.5 (5.0-8.0); Protein,Urine 1+ (Negative); RBC,Urine 6 /hpf (0-5); Specific Gravity,Urine 1.014 (1.001-1.035); Urobilinogen,Urine <2.0 mg/dL (<2.0); WBC,Urine 1 /hpf (0-5)
[2018-11-11] MEDS: PANTOPRAZOLE 40 MG/10 ML VIAL IV SCH (08:00)
[2018-11-11] MEDS ORDERED: ONDANSETRON 4 MG/2 ML VIAL IVP STA (08:03)
[2018-11-11] MEDS: LORazepam 2 MG/ML INJ IV PRN (08:10)
[2018-11-11] MEDS: HEPARIN SODIUM,PORCINE 5,000 UNIT/ML 1 ML VIAL SQ SCH ×2 (08:48→16:05)
[2018-11-11] MEDS ORDERED: amLODIPine 5 MG TAB PO SCH (09:00)
[2018-11-11] MEDS ORDERED: LOSARTAN 25 MG TAB PO SCH (09:00)
[2018-11-11] MEDS ORDERED: MAG HYDROX/AL HYDROX/SIMETH 30 ML, HYOSCYAMINE ELIXIR 10 ML, CIMETIDINE HCL 300 MG, LID... PO SCH ×8 (09:06)
[2018-11-11] MEDS ORDERED: HYDROmorphone 1 MG/ML 1 ML SYRINGE IVP STA (09:31)
[2018-11-11] MEDS: MAG HYDROX/AL HYDROX/SIMETH 30 ML, HYOSCYAMINE ELIXIR 10 ML, CIMETIDINE HCL 300 MG, LID... PO SCH ×8 (10:26→16:04)
--- NOTE | 2018-11-11 12:04 | P.PN ---
Subjective Progress Note Date: 11/11/18 Patient with known history of symptomatic hiatal hernia including jackhammer esophagus. He is requesting Dilaudid. He takes Percocet 10. He sees his orthopedic back Dr. Dr. Rashid. Despite IV Tylenol including Toradol, patient reports severe pain causing nausea and emesis. Dilaudid given. Discharge pending patient's clinical improvement. Outpatient management for hiatal hernia repair reviewed. Objective - Vital Signs Vital signs: Vital Signs Temp 98.1 F 11/11/18 07:00 Pulse 73 11/11/18 07:00 Resp 20 11/11/18 07:15 BP 169/84 11/11/18 07:00 Pulse Ox 99 11/11/18 07:00 Intake & Output 11/10/18 11/11/18 11/11/18 18:59 06:59 18:59 Intake Total 3790 Balance 3790 Weight 113.398 kg Intake: Intake, IV Titration 3000 Amount Sodium Chloride 0.9% 1, 1000 000 ml @ 999 mls/hr IV . Q1H1M STA Rx#:[id number] Sodium Chloride 0.9% 2, 2000 000 ml @ 999 mls/hr IV . Q2H1M STA Rx#:[id number] Oral 790 Other: Voiding Method Toilet Toilet Urinal Urinal # Voids 1 # Bowel Movements 0 - Labs CBC & Chem 7: 11/10/18 13:23 11/10/18 13:23 Labs: Abnormal Lab Results - Last 24 Hours (Table) 11/10/18 11/10/18 11/11/18 Range/Units 13:23 13:23 06:07 Hgb 12.8 L (13.0-17.5) gm/dL MCHC 30.8 L (31.0-37.0) g/dL Chloride 109 H (98-107) mmol/L Alkaline Phosphatase 128 H (38-126) U/L Total Protein 8.6 H (6.3-8.2) g/dL Urine Protein 1+ H (Negative) Urine Ketones 1+ H (Negative) Urine Blood Small H (Negative) Urine RBC 6 H (0-5) /hpf Urine Mucus Rare H (None) /hpf Assessment and Plan (1) Intractable abdominal pain Current Visit: No Status: Acute Code(s): R10.9 - UNSPECIFIED ABDOMINAL PAIN SNOMED Code(s): 45000815 (2) Intractable epigastric abdominal pain Current Visit: No Status: Acute Code(s): R10.13 - EPIGASTRIC PAIN SNOMED Code(s): 93102832 (3) Lumbar radicular syndrome Current Visit: No Status: Acute Code(s): M54.16 - RADICULOPATHY, LUMBAR REGION SNOMED Code(s): 817920996 (4) GERD (gastroesophageal reflux disease) Current Visit: No Status: Chronic Code(s): K21.9 - GASTRO-ESOPHAGEAL REFLUX DISEASE WITHOUT ESOPHAGITIS SNOMED Code(s): 831142269 (5) Jackhammer esophagus Current Visit: No Status: Chronic Code(s): K22.9 - DISEASE OF ESOPHAGUS, UNSPECIFIED SNOMED Code(s): 288760509 (6) Right upper quadrant abdominal pain Current Visit: No Status: Chronic Code(s): R10.11 - RIGHT UPPER QUADRANT PAIN SNOMED Code(s): 409221726 (7) Hiatal hernia Current Visit: No Status: Chronic Code(s): K44.9 - DIAPHRAGMATIC HERNIA WITHOUT OBSTRUCTION OR GANGRENE SNOMED Code(s): 58094119
[2018-11-11] MEDS ORDERED: SCOPOLAMINE 1.5MG/72HR PATCH TRANSDERM STA (13:02)
[2018-11-11] MEDS ORDERED: DEXAMETHASONE SOD PHOSPHATE 10 MG/ML 1 ML VIAL IV STA (13:02)
[2018-11-11] MEDS ORDERED: oxyCODONE-APAP 10-325MG 1 EACH TAB PO PRN (13:02)
[2018-11-11] MEDS ORDERED: SODIUM CHLORIDE 0.9% 2,000 ML IV ONE (13:02)
[2018-11-11] MEDS ORDERED: ONDANSETRON 4 MG/2 ML VIAL IVP PRN (14:58)
--- NOTE | 2018-11-11 14:58 | P.PN ---
Subjective Progress Note Date: 11/11/18 Principal diagnosis: Epigastric pain Patient seen and examined. No acute events overnight. Patient complains of severe epigastric pain, 10 out of 10 in severity. He has a diagnosis of hiatal hernia and jackhammer esophagus. He was given Dilaudid injections this morning. Patient also reports intense nausea and vomiting, partially relieved with Zofran. Objective - Vital Signs Vital signs: Vital Signs Temp 98.1 F 11/11/18 07:00 Pulse 73 11/11/18 07:00 Resp 20 11/11/18 07:15 BP 169/84 11/11/18 07:00 Pulse Ox 99 11/11/18 07:00 Intake & Output 11/10/18 11/11/18 11/11/18 18:59 06:59 18:59 Intake Total 3790 Balance 3790 Weight 113.398 kg Intake: Intake, IV Titration 3000 Amount Sodium Chloride 0.9% 1, 1000 000 ml @ 999 mls/hr IV . Q1H1M STA Rx#:[id number] Sodium Chloride 0.9% 2, 2000 000 ml @ 999 mls/hr IV . Q2H1M STA Rx#:[id number] Oral 790 Other: Voiding Method Toilet Toilet Urinal Urinal # Voids 1 # Bowel Movements 0 - Exam General: [non toxic], [in acute distress], [appears at stated age] Derm: [warm], [dry] Head: [atraumatic], [normocephalic], [symmetric] Eyes: [EOMI], [no lid lag], [anicteric sclera] Mouth: [no lip lesion], [mucus membranes moist] Cardiovascular: [S1S2 reg], [no murmur], [positive DP pulse bilateral] Lungs: [CTA bilateral], [no rhonchi, no rales] , [no accessory muscle use] Abdominal: [soft], [epigastric tenderness to palpation without rebound], [no guarding], [no appreciable organomegaly] Ext: [no gross muscle atrophy], [no edema], [no contractures] Neuro: [no focal neuro deficits] Psych: [Alert], [oriented], [appropriate affect] - Labs CBC & Chem 7: 11/10/18 13:23 11/10/18 13:23 Labs: Abnormal Lab Results - Last 24 Hours (Table) 11/11/18 Range/Units 06:07 Urine Protein 1+ H (Negative) Urine Ketones 1+ H (Negative) Urine Blood Small H (Negative) Urine RBC 6 H (0-5) /hpf Urine Mucus Rare H (None) /hpf Assessment and Plan Assessment: Assessment and Plan 1. Hiatal hernia with jackhammer esophagus: Pain management with Tylenol, Lidocaine viscous, Toradol IV PRN, Oxycodone IV PRN. Protonix 40 mg IV BID. Management as per primary team. 2. Hypertension: BP 169/84. Continue Amlodipine 5 mg PO QD, Clonidine 0.2 mg PO TID PRN. Monitor vitals, adjust medications as necessary. 3. DVT/GI Prophylaxis: Heparin 5000 units TID. Protonix. Patient in severe epigastric pain requiring IV Dilaudid. Patient is pending clinical improvement. Thank you for the consult, please call if any additional questions.
[2018-11-11 15:38] VITALS: BP 173/76; PULSE 69; RESP 16; TEMP 98.2
--- NOTE | 2018-11-11 17:20 | P.DS ---
Providers Date of admission: 11/10/18 16:04 Expected date of discharge: 11/11/18 Attending physician: Anna Berry Consults: 11/10/18 17:06 Consult Physician Routine Consulting Provider: Vernon Ellis Consult Reason/Comments: Medical management Do you want consulting provider notified?: Yes Primary care physician: Stated None - Discharge Diagnosis(es) (1) Intractable abdominal pain Current Visit: No Status: Acute (2) Intractable epigastric abdominal pain Current Visit: No Status: Acute (3) Lumbar radicular syndrome Current Visit: No Status: Acute (4) GERD (gastroesophageal reflux disease) Current Visit: No Status: Chronic (5) Jackhammer esophagus Current Visit: No Status: Chronic (6) Right upper quadrant abdominal pain Current Visit: No Status: Chronic (7) Hiatal hernia Current Visit: No Status: Chronic Hospital Course: He responded to Dilaudid 2 mg with improvement of his abdominal pain. With his high pain needs, he was advised to see a pain specialist to manage his narcotics. Follow up in the office as outpatient for treatment of his esophageal dysmotility. Plan - Discharge Summary Discharge Rx Participant: Yes New Discharge Prescriptions: No Action amLODIPine BESYLATE [Norvasc] 5 mg PO DAILY Losartan [Cozaar] 25 mg PO DAILY Tadalafil [Cialis] 5 mg PO DIRECTED PRN PRN Reason: E.D. oxyCODONE-APAP 10-325MG [Percocet 10-325 mg] 1 tab PO TID PRN PRN Reason: Pain Dicyclomine [Bentyl] 20 mg PO TID Discharge Medication List amLODIPine BESYLATE [Norvasc] 5 mg PO DAILY 08/15/16 [History] Losartan [Cozaar] 25 mg PO DAILY 11/05/17 [History] Tadalafil [Cialis] 5 mg PO DIRECTED PRN 06/17/18 [History] oxyCODONE-APAP 10-325MG [Percocet 10-325 mg] 1 tab PO TID PRN 06/17/18 [History] Dicyclomine [Bentyl] 20 mg PO TID 11/10/18 [History] Follow up Appointment(s)/Referral(s): None,Stated [Primary Care Provider] - 1-2 days
== END 2018-11-11 19:26 | disposition home or self-care (01) ==
LOC: EC 12:17 → 4SSUR 16:04
PROVIDERS: ADMIT Surgery Plastic and Reconstructive Surgery; ATTEND Surgery Plastic and Reconstructive Surgery
DX: R10.13 Epigastric pain (principal); K22.4 Dyskinesia of esophagus; I16.0 Hypertensive urgency; K44.9 Diaphragmatic hernia without obstruction or gangrene; I10 Essential (primary) hypertension; R07.89 Other chest pain; R11.2 Nausea with vomiting, unspecified; R10.11 Right upper quadrant pain; G89.29 Other chronic pain; M54.5 Low back pain; K21.9 Gastro-esophageal reflux disease without esophagitis; M48.00 Spinal stenosis, site unspecified; K59.00 Constipation, unspecified; M19.90 Unspecified osteoarthritis, unspecified site; M54.16 Radiculopathy, lumbar region; Z79.899 Other long term (current) drug therapy; Z91.041 Radiographic dye allergy status; Z91.013 Allergy to seafood; Z91.048 Other nonmedicinal substance allergy status; Z90.49 Acquired absence of other specified parts of digestive tract; Z98.1 Arthrodesis status; Z87.891 Personal history of nicotine dependence; Z82.49 Family history of ischemic heart disease and other diseases of the circulatory system; Z82.61 Family history of arthritis
CPT/HCPCS: 36415; 74018; 80053; 81001; 82150; 83605; 83690; 83735; 85025; 85610; 85730; 96361; 96372; 96374; 96375; 96376; 99285

== ENCOUNTER 2018-11-12 09:08 | Emergency (ER) | payer OTHER ==
[2018-11-12] MEDS ORDERED: MORPHINE SULFATE 4 MG/ML SYRINGE IV STA (09:49)
[2018-11-12] MEDS ORDERED: ONDANSETRON 4 MG/2 ML VIAL IVP STA (09:49)
[2018-11-12] MEDS ORDERED: SODIUM CHLORIDE 0.9% 1,000 ML IV STA (09:49)
[2018-11-12] MEDS ORDERED: LORazepam 2 MG/ML INJ IV STA ×2 (09:50→11:42)
[2018-11-12] MEDS ORDERED: DICYCLOMINE 10 MG/ML 2 ML AMP IM STA (09:58)
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
[2018-11-12 10:52] LABS: Basophils % (A) 0 %; Eosinophils # (A) 0.1 k/uL (0-0.7); Eosinophils % (A) 1 %; HCT 42.1 % (39.0-53.0); HGB 13.3 gm/dL (13.0-17.5); Lymphocytes # (A) 1.8 k/uL (1.0-4.8); Lymphocytes % (A) 20 %; MCH 25.9 pg (25.0-35.0); MCHC 31.5 g/dL (31.0-37.0); MCV 82.2 fL (80.0-100.0); Mean Platelet Volume 7.3; Monocytes % (A) 11 %; Neutrophils # (A) 6.2 k/uL (1.3-7.7); Neutrophils % (A) 66 %; Platelet Count 212 k/uL (150-450); RBC 5.12 m/uL (4.30-5.90); RDW 14.6 % (11.5-15.5); WBC 9.3 k/uL (3.8-10.6)
--- NOTE | 2018-11-12 11:09 | XR ---
EXAMINATION TYPE: XR KUB DATE OF EXAM: 11/12/2018 CLINICAL DATA: 53 year-old male right upper quadrant pain for 2 days, H COMPARISON: 11/10/2018 FINDINGS: Lung bases are clear. No evidence for free intraperitoneal air. No dilated small bowel or air-fluid levels. Scattered air is seen throughout the colon extending dist ally into the rectum. No significant stool burden. No suspicious calcifications identified. Posterior and interbody lumbar fusion. Degenerative changes of the hips. IMPRESSION: Nonspecific, nonobstructive bowel gas pattern. No significant stool burden. No free air.
[2018-11-12 11:17] LABS: Albumin 4.7 g/dL (3.5-5.0); Calcium 9.2 mg/dL (8.4-10.2); Total Bilirubin 0.5 mg/dL (0.2-1.3); Total Protein 8.5 g/dL (6.3-8.2)
[2018-11-12] MEDS ORDERED: PROMETHAZINE INJ 25 MG in SODIUM CHLORIDE 0.9% 50 ML IVPB STA (11:42)
[2018-11-12 12:55] LABS: Appearance,Urine Clear (Clear); Bilirubin,Urine Negative (Negative); Blood,Urine Trace (Negative); Color,Urine Colorless; Glucose,Urine (UA) Negative (Negative); Ketones,Urine Negative (Negative); Leukocyte Esterase,Urine Negative (Negative); Mucus,Urine Rare /hpf; Nitrite,Urine Negative (Negative); PH, Urine 6.5 (5.0-8.0); Protein,Urine Negative (Negative); RBC,Urine <1 /hpf (0-5); Specific Gravity,Urine 1.006 (1.001-1.035); Urobilinogen,Urine <2.0 mg/dL (<2.0); WBC,Urine <1 /hpf (0-5)
--- NOTE | 2018-11-12 13:54 | CT ---
EXAMINATION TYPE: CT abdomen pelvis wo con DATE OF EXAM: 11/12/2018 COMPARISON: 06/17/2018 HISTORY: 53-year-old male with abdominal pain CT DLP: 691.7 mGycm. Automated exposure control for dose reduction was used. TECHNIQUE: Contiguous axial scanning of the abdomen and pelvis without IV contrast. Coronal and sagit mike reconstructions performed. FINDINGS: Motion artifacts at the thoracoabdominal junction limits assessment. Further limitation due to lack o f IV contrast. Heart normal size. Visualized lung bases clear. Noncontrast appearance of the liver, adrenal glands, kidneys, spleen, pancreas show no gross abnormal ity allowing for metal hardware artifact and additional motion artifact. No dilated small bowel, free fluid, or free air. Minimal scattered stool. No mesenteric or retroperitoneal lymphadenopathy identified. A very chronic inflammatory change. Bladder urine distended. No abnormal fluid collection in the pelvis or pelvic lymphadenopathy seen. M ultiple pelvic phleboliths and vascular calcifications in the pelvis Bones: Degenerative changes at the hips. Postsurgical changes of L2-L5 posterior and interbody fusion . Trace grade 1 retrolisthesis of a pleural effusion at L1-L2 and also at T12-L1. Multilevel degenera tive disc disease above the fusion and also below the fusion at L5-S1. IMPRESSION: 1. Noncontrast exam further limited by motion artifact and metal hardware artifact. 2. No definite acute inflammatory process identified in the abdomen or pelvis to explain patient's s ymptoms.
[2018-11-12 15:04] VITALS: TEMP 97.8
[2018-11-12] MEDS ORDERED: PANTOPRAZOLE 40 MG/10 ML VIAL IVP STA (15:20)
[2018-11-12] MEDS ORDERED: FAMOTIDINE 20 MG/2 ML VIAL IV STA (15:20)
[2018-11-12 16:13] VITALS: BP 174/96; PULSE 63; RESP 20
== END 2018-11-12 17:03 | disposition home or self-care (01) ==
LOC: EC 09:08
DX: G89.29 Other chronic pain (principal); R10.13 Epigastric pain; R11.2 Nausea with vomiting, unspecified; I10 Essential (primary) hypertension; M19.90 Unspecified osteoarthritis, unspecified site; Z91.013 Allergy to seafood; Z91.041 Radiographic dye allergy status; Z91.048 Other nonmedicinal substance allergy status; Z79.899 Other long term (current) drug therapy; Z90.49 Acquired absence of other specified parts of digestive tract; Z98.1 Arthrodesis status
CPT/HCPCS: 36415; 80053; 82150; 83605; 83690; 85025; 81001; 74018; 74176; 99285; 96374; 96375 ×5; 96376; 96361 ×3; 96372; J2060; J2270; J0500; J2550; J2405; C9113

== ENCOUNTER 2018-11-13 10:56 | Emergency (ER) | payer OTHER ==
[2018-11-13] MEDS ORDERED: METOCLOPRAMIDE 5 MG/ML 2 ML VIAL IVP STA (11:13)
[2018-11-13] MEDS ORDERED: LORazepam 2 MG/ML INJ IV STA (11:13)
[2018-11-13] MEDS ORDERED: FAMOTIDINE 20 MG/2 ML VIAL IV STA (11:13)
[2018-11-13] MEDS ORDERED: SODIUM CHLORIDE 0.9% 1,000 ML IV STA (11:13)
[2018-11-13] MEDS ORDERED: MAG HYDROX/AL HYDROX/SIMETH 30 ML, HYOSCYAMINE ELIXIR 10 ML, CIMETIDINE HCL 300 MG, LID... PO STA ×4 (11:16)
[2018-11-13] MEDS ORDERED: ENALAPRILAT 1.25 MG/ML 1 ML VIAL IVP STA (11:32)
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
[2018-11-13 12:06] LABS: Basophils % (A) 0 %; Eosinophils # (A) 0.1 k/uL (0-0.7); Eosinophils % (A) 1 %; HCT 44.5 % (39.0-53.0); HGB 14.5 gm/dL (13.0-17.5); Lymphocytes # (A) 1.4 k/uL (1.0-4.8); Lymphocytes % (A) 25 %; MCH 26.5 pg (25.0-35.0); MCHC 32.6 g/dL (31.0-37.0); MCV 81.3 fL (80.0-100.0); Mean Platelet Volume 7.4; Monocytes # (A) 0.6 k/uL (0-1.0); Monocytes % (A) 10 %; Neutrophils # (A) 3.4 k/uL (1.3-7.7); Neutrophils % (A) 61 %; Platelet Count 191 k/uL (150-450); RBC 5.48 m/uL (4.30-5.90); RDW 14.7 % (11.5-15.5); WBC 5.5 k/uL (3.8-10.6)
[2018-11-13 12:12] VITALS: RESP 18
[2018-11-13 12:15] LABS: Albumin 4.5 g/dL (3.5-5.0); Calcium 9.1 mg/dL (8.4-10.2); Potassium 3.8 mmol/L (3.5-5.1); Total Bilirubin 0.6 mg/dL (0.2-1.3); Total Protein 8.5 g/dL (6.3-8.2)
[2018-11-13 13:13] VITALS: BP 158/62; PULSE 59; TEMP 98.2
== END 2018-11-13 12:45 | disposition home or self-care (01) ==
LOC: EC 10:56
DX: G89.29 Other chronic pain (principal); R10.13 Epigastric pain; R10.11 Right upper quadrant pain; I10 Essential (primary) hypertension; Z79.899 Other long term (current) drug therapy; Z91.041 Radiographic dye allergy status; Z91.013 Allergy to seafood; Z91.02 Food additives allergy status; Z98.1 Arthrodesis status
CPT/HCPCS: 36415; 80053; 82150; 83690; 85025; 99284; 96374; 96375 ×2; 96361; J2060; J2765

== ENCOUNTER 2018-11-13 23:17 | Observation (INO) | payer OTHER ==
[2018-11-14] MEDS ORDERED: SODIUM CHLORIDE 0.9% 1,000 ML IV STA (00:15)
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
[2018-11-14] MEDS: NITROGLYCERIN SL TABS 0.4 MG TAB SUBLINGUAL PRN ×3 (00:54→01:27)
[2018-11-14 01:00] LABS: Basophils % (A) 0 %; Eosinophils % (A) 1 %; HCT 41.3 % (39.0-53.0); HGB 13.4 gm/dL (13.0-17.5); Lymphocytes # (A) 1.6 k/uL (1.0-4.8); Lymphocytes % (A) 29 %; MCH 26.1 pg (25.0-35.0); MCHC 32.3 g/dL (31.0-37.0); MCV 80.8 fL (80.0-100.0); Mean Platelet Volume 7.3; Monocytes # (A) 0.7 k/uL (0-1.0); Monocytes % (A) 12 %; Neutrophils # (A) 3.1 k/uL (1.3-7.7); Neutrophils % (A) 55 %; Platelet Count 179 k/uL (150-450); RBC 5.12 m/uL (4.30-5.90); RDW 14.7 % (11.5-15.5); WBC 5.6 k/uL (3.8-10.6)
[2018-11-14] MEDS ORDERED: SODIUM CHLORIDE 0.9% 1,000 ML IV ONE (01:06)
[2018-11-14] MEDS ORDERED: DIAZEPAM 5 MG/ML 2 ML INJ IVP STA (01:06)
[2018-11-14 01:26] LABS: Albumin 4.3 g/dL (3.5-5.0); Calcium 8.8 mg/dL (8.4-10.2); Potassium 3.9 mmol/L (3.5-5.1); Total Bilirubin 0.5 mg/dL (0.2-1.3); Total Protein 7.7 g/dL (6.3-8.2)
[2018-11-14 03:15] LABS: Appearance,Urine Clear (Clear); Bilirubin,Urine Negative (Negative); Blood,Urine Negative (Negative); Color,Urine Light Yellow; Glucose,Urine (UA) Negative (Negative); Ketones,Urine 1+ (Negative); Leukocyte Esterase,Urine Negative (Negative); Nitrite,Urine Negative (Negative); PH, Urine 6.5 (5.0-8.0); Protein,Urine Negative (Negative); Specific Gravity,Urine 1.011 (1.001-1.035); Urobilinogen,Urine <2.0 mg/dL (<2.0)
[2018-11-14 03:38] VITALS: BMI 30.4
[2018-11-14] MEDS ORDERED: NON-FORMULARY DRUG (Tadalafil [Cialis] 5 MG) PO PRN (06:44)
[2018-11-14] MEDS: LOSARTAN 25 MG TAB PO SCH (07:59)
[2018-11-14] MEDS: PANTOPRAZOLE 40 MG TABLET PO SCH (07:59)
[2018-11-14] MEDS: amLODIPine 5 MG TAB PO SCH (07:59)
[2018-11-14] MEDS: METOCLOPRAMIDE 10 MG TAB PO PRN ×2 (08:47→14:25)
[2018-11-14] MEDS: DICYCLOMINE 20 MG TAB PO SCH ×3 (08:47→23:21)
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
--- NOTE | 2018-11-14 17:07 | CT ---
EXAMINATION TYPE: CT abdomen pelvis wo con DATE OF EXAM: 11/14/2018 COMPARISON: 11/12/2018 HISTORY: Right sided abdominal pain. CT DLP: 674.8 mGycm Automated exposure control for dose reduction was used. TECHNIQUE: Helical acquisition of images was performed from the lung bases through the pelvis. FINDINGS: Lung bases are clear. There is no pleural effusion. Heart size is normal. Liver shows no focal defect. Spleen appears normal. There is no pancreatic mass. There is no adrenal mass. Kidneys show satisfactory contrast opacification. There is no hydronephrosis. There is no retro peritoneal adenopathy. Bladder distends smoothly. There is no free fluid in the pelvis. There is no i nguinal hernia. Appendix is not seen. There is no sign of appendicitis. There is minimal vascular tavo cification. There is posterior fusion surgery in the lower lumbar spine. There is no mesenteric edema or adenopathy. IMPRESSION: NEGATIVE CT SCAN OF THE ABDOMEN AND PELVIS. NO ADVERSE CHANGE COMPARED TO RECENT EXAM.
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
[2018-11-15] MEDS: amLODIPine 5 MG TAB PO SCH (07:40)
[2018-11-15] MEDS: PANTOPRAZOLE 40 MG TABLET PO SCH (07:40)
[2018-11-15] MEDS: DICYCLOMINE 20 MG TAB PO SCH ×3 (07:41→15:36)
[2018-11-15] MEDS: LOSARTAN 25 MG TAB PO SCH (07:41)
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
--- NOTE | 2018-11-15 12:42 | FL ---
EXAMINATION TYPE: FL UGI w esophagus DATE OF EXAM: 11/15/2018 COMPARISON: NONE HISTORY: Intractable epigastric pain and dysphagia. TECHNIQUE: A single contrast UGI study is performed. FINDINGS: Risk Developer image of the abdomen shows no gross abnormality. The esophagus shows delayed emptying into the stomach. There is a small hiatal hernia seen. Normal es ophageal motility to the small hiatal hernia is seen. No stricture noted. The stomach displays diffus julissa thickened gastric rugal folds and irregular contour of the posterior stomach wall at the gastric upper body. Moderate grade gastroesophageal reflux was seen during real time performance of this arlene dy. The duodenal bulb, sweep, and proximal small bowel loops are unremarkable. IMPRESSION: 1. Diffusely thickened gastric rugal folds most compatible with gastritis. Additionally there is abno rmal contour of the upper gastric body at its posterior margin that could relate to incomplete disten sibility or gastric lesion. Evaluation for underlying ulcer is limited given these findings. 2. Very small hiatal hernia with resultant delayed emptying into the stomach is present with resultan t moderate grade gastroesophageal reflux.
[2018-11-15 15:40] VITALS: RESP 18
[2018-11-15] MEDS ORDERED: HYOSCYAMINE ORAL DROPS 1.875 MG/15 ML BOTTLE PO SCH ×2 (17:30→20:00)
[2018-11-15] MEDS ORDERED: SCOPOLAMINE 1.5MG/72HR PATCH TRANSDERM STA (17:41)
--- NOTE | 2018-11-15 18:13 | P.PN ---
Progress Note - Text Progress Note Date: 11/15/18 Patient given information for treatment of jackhammer esophagus. UGI results reviewed also consistent with GERD. Adjustments of medications to treat esophageal spasms including Tofranil, trazadone, levsin, and sildenafil described with scopolamine patch for nausea. PPIs increased to BID for the severity of GERD and to control his esophageal spasms. Food triggers and change in diet also addressed. Will need repeat manometry and upper endoscopy as questionable ulcer per UGI. He can follow up as outpatient also with GI team. Again, surgical intervention not ideal method of treatment as endoscopy methods and medication alternatives are best options.
--- NOTE | 2018-11-15 19:37 | P.PN ---
Progress Note - Text Progress Note Date: 11/15/18 I was contacted by Dr. Adams for change of service. I spoke to Mr. Thomas about medication treatment for his condition. He is aware that management is primarily as outpatient. Narcotics cannot treat his condition for which he is aware. Hand outs and dietary changes for esophageal dysmotility was given. Will start dysphagia diet. Please earlier note. Patient is aware that Sildenafil may not be covered by insurance.
--- NOTE | 2018-11-15 19:49 | P.DS ---
Providers Date of admission: 11/14/18 01:06 Expected date of discharge: 11/16/18 Attending physician: Anna Berry Consults: 11/14/18 01:06 Consult Physician Urgent Consulting Provider: [facility] Consult Reason/Comments: Pain management Do you want consulting provider notified?: Yes Consult Physician Urgent Consulting Provider: Anna Berry Consult Reason/Comments: Hammer esophagus Do you want consulting provider notified?: Yes, Notify in am 11/14/18 12:01 Consult Physician Routine Consulting Provider: Kaylie Lee Consult Reason/Comments: jackhammer esophogus, abdominal pain Do you want consulting provider notified?: Yes Primary care physician: Donald Augustin - Dominic Diagnosis(es) (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 (2) Chest pain Current Visit: No Status: Acute (3) Chronic abdominal pain Current Visit: No Status: Acute (4) Hypertension Current Visit: No Status: Acute (5) Intractable abdominal pain Current Visit: No Status: Acute (6) GERD (gastroesophageal reflux disease) Current Visit: No Status: Chronic (7) Hiatal hernia Current Visit: No Status: Chronic Patient Condition at Discharge: Fair Plan - Discharge Summary Discharge Rx Participant: No New Discharge Prescriptions: New Hyoscyamine Sulfate [Levsin] 0.125 mg PO Q4-6H PRN #30 tab PRN Reason: Esophageal Spasm Imipramine [Tofranil] 10 mg PO HS #30 tab Omeprazole 40 mg PO BID #60 capsule. Sildenafil [Revatio] 20 mg PO TID #30 tab traZODone HCL [Desyrel] 150 mg PO HS #30 tab Continue amLODIPine BESYLATE [Norvasc] 5 mg PO DAILY Losartan [Cozaar] 25 mg PO DAILY Metoclopramide [Reglan] 10 mg PO TID PRN PRN Reason: Nausea Discontinued Tadalafil [Cialis] 5 mg PO DAILY PRN PRN Reason: E.D. Dicyclomine [Bentyl] 20 mg PO TID Omeprazole 20 mg PO DAILY #20 capsule. Metoclopramide HCl [Reglan] 10 mg PO Q6HR PRN #15 tab PRN Reason: Nausea Discharge Medication List amLODIPine BESYLATE [Norvasc] 5 mg PO DAILY 08/15/16 [History] Losartan [Cozaar] 25 mg PO DAILY 11/05/17 [History] Metoclopramide [Reglan] 10 mg PO TID PRN 11/12/18 [History] Hyoscyamine Sulfate [Levsin] 0.125 mg PO Q4-6H PRN #30 tab 11/15/18 [Rx] Imipramine [Tofranil] 10 mg PO HS #30 tab 11/15/18 [Rx] Omeprazole 40 mg PO BID #60 capsule.dr 11/15/18 [Rx] Sildenafil [Revatio] 20 mg PO TID #30 tab 11/15/18 [Rx] traZODone HCL [Desyrel] 150 mg PO HS #30 tab 11/15/18 [Rx] Follow up Appointment(s)/Referral(s): Donald Augustin DO [Primary Care Provider] - 1-2 days Anna Berry MD [STAFF PHYSICIAN] - 12/03/18 Patient Instructions/Handouts: Esophageal Spasm (GEN), Chronic Dysphagia (GEN) Activity/Diet/Wound Care/Special Instructions: Follow your gastroesophageal reflux disease diet. Avoid triggers including stress and too hot or too cold beverages. Take medications for your spasms. Not all medications will be covered by insurance. Discharge Disposition: HOME SELF-CARE
[2018-11-15] MEDS ORDERED: SODIUM CHLORIDE 0.9% 2,000 ML IV ONE (19:59)
[2018-11-15] MEDS: HYOSCYAMINE ORAL DROPS 1.875 MG/15 ML BOTTLE PO SCH ×2 (20:00→20:02)
[2018-11-15] MEDS: SILDENAFIL 20 MG TAB PO SCH ×2 (20:03→22:48)
[2018-11-15] MEDS ORDERED: traZODone HCL 50 MG TAB PO SCH (21:00)
[2018-11-15] MEDS ORDERED: IMIPRAMINE 10 MG TAB PO SCH (21:00)
[2018-11-15] MEDS: PANTOPRAZOLE 40 MG/10 ML VIAL IVP SCH (21:06)
[2018-11-15] MEDS ORDERED: SILDENAFIL 20 MG TAB PO SCH (22:00)
[2018-11-16] MEDS: HYOSCYAMINE ORAL DROPS 1.875 MG/15 ML BOTTLE PO SCH ×3 (00:12→07:45)
[2018-11-16 00:16] VITALS: PULSE 68
--- NOTE | 2018-11-16 00:47 | PN ---
PROGRESS NOTE DATE OF SERVICE: November 15, 2018. PRESENTING COMPLAINT: Abdominal pain. INTERVAL HISTORY: This is a patient with longstanding pain on and off, extensive workup in the past. This morning underwent had upper GI barium swallow. The patient's was in the room. I did call Dr. Blackwell from to discuss with the patient further plan of care. The patient otherwise has been n.p.o. when I saw this patient earlier today for the barium swallow. Abdominal pain was relatively better. REVIEW OF SYSTEMS: Done for constitutional, cardiovascular, GI, pulmonary and relevant findings as above. CURRENT MEDICATIONS: Reviewed. PHYSICAL EXAMINATION: VITAL SIGNS: Temperature 98.9, pulse 58, respiratory 18, blood pressure 155/85 pulse ox 94 percent. GENERAL APPEARANCE: Lying in bed, awake. Appears comfortable. EYES: Pupils equal. Conjunctivae normal. HEENT: External appearance of nose and ears normal. Oral cavity normal. NECK: JVD not raised. Mass not palpable. RESPIRATORY: Effort normal. LUNGS are clear. CARDIOVASCULAR: 1st and 2nd sounds normal. No edema. ABDOMEN: Soft. Some right upper tenderness. No guarding or rigidity. Bowel sounds are present. PSYCHIATRY: Alert and oriented x3. Mood and affect slightly anxious-appearing. INVESTIGATIONS: No blood work from today. Upper GI barium swallow showed diffuse thickened gastric rugal folds possibly compatible with gastritis. There is a very small if any hiatal hernia. ASSESSMENT: 1. Acute on chronic abdominal pain present on and off for a long time with extensive workup including EGD, CT scans, done could be a functional pain being followed now by Gastroenterology, Dr. Berry. The patient is well known. 2. Gastroesophageal reflux disease. 3. Essential hypertension. 4. Primary osteoarthritis. PLAN: I spoke to the nurse and Dr. Blackwell is going to come down and speak to the patient. Later the nurse called me. The patient after eating some of his evening meal, having more abdominal pain. I did speak to Dr. Berry to whom the patient is well known and he has been following for quite a while. She does want to try him on some medications for the esophageal jackhammer esophagus. I am passing on the service to her as she knows the patient well and I did convey this note to switch the patient over to Dr. Berry and I will sign off the case, will be happy to help for any further intervention to be done. The patient should follow up with Dr. Berry and Dr. Ministerio Lee who has known the patient from before. MMODL / IJN: [id number] /
[2018-11-16] MEDS: PANTOPRAZOLE 40 MG/10 ML VIAL IVP SCH (07:44)
[2018-11-16] MEDS: LOSARTAN 25 MG TAB PO SCH (07:45)
[2018-11-16] MEDS: amLODIPine 5 MG TAB PO SCH (07:45)
[2018-11-16] MEDS: SILDENAFIL 20 MG TAB PO SCH (07:46)
[2018-11-16 07:47] VITALS: BP 152/93; TEMP 98.3
--- NOTE | 2018-11-16 10:00 | P.PN ---
Subjective Progress Note Date: 11/16/18 Principal diagnosis: Esophageal dysmotility Patient did well overnight. Tolerating liquids nicely. He is anxious to go home. He has already discussed his home diet with Dr. Abdul. Objective - Vital Signs Vital signs: Vital Signs Temp 98.3 F 11/16/18 07:46 Pulse 68 11/16/18 07:46 Resp 18 11/16/18 07:46 BP 152/93 11/16/18 07:46 Pulse Ox 94 L 11/16/18 07:46 Intake & Output 11/15/18 11/16/18 11/16/18 18:59 06:59 18:59 Intake Total 2800 Output Total 1900 400 Balance 900 -400 Intake: Intake, IV Titration 2800 Amount Sodium Chloride 0.9% 1, 800 000 ml @ 100 mls/hr IV . Q10H ONE Rx#:[id number] Sodium Chloride 0.9% 2, 2000 000 ml @ 999 mls/hr IV . Q2H1M ONE Rx#:[id number] Output: Urine 1900 400 Other: Voiding Method Toilet # Voids 1 - Exam Abdomen: Soft, nontender, nondistended - Labs CBC & Chem 7: 11/14/18 00:45 11/14/18 00:45 Assessment and Plan Plan: Gradually advanced liquids to post-Javid diet. Follow-up with Dr. Abdul post discharge.
== END 2018-11-16 10:46 | disposition home or self-care (01) ==
LOC: EC 23:17 → 4SSUR 11-14 01:06
PROVIDERS: ADMIT Surgery Plastic and Reconstructive Surgery; ATTEND Surgery Plastic and Reconstructive Surgery
DX: K22.4 Dyskinesia of esophagus (principal); K21.0 Gastro-esophageal reflux disease with esophagitis; I10 Essential (primary) hypertension; M54.9 Dorsalgia, unspecified; M48.00 Spinal stenosis, site unspecified; K44.9 Diaphragmatic hernia without obstruction or gangrene; M19.91 Primary osteoarthritis, unspecified site; G89.4 Chronic pain syndrome; Z98.1 Arthrodesis status; Z90.49 Acquired absence of other specified parts of digestive tract; Z87.891 Personal history of nicotine dependence; Z91.041 Radiographic dye allergy status; Z91.013 Allergy to seafood; Z91.02 Food additives allergy status; Z79.899 Other long term (current) drug therapy; Z82.49 Family history of ischemic heart disease and other diseases of the circulatory system
CPT/HCPCS: 96376; 96361 ×3; 96375; 96374; 99285; 36415; 93005; 80053; 82150; 83690; 85025; 81003; 74240; 74176; G0378 ×3; J3360; C9113 ×2

== ENCOUNTER 2019-02-25 08:01 | Inpatient (IN) | payer OTHER ==
[2019-02-25] MEDS ORDERED: SODIUM CHLORIDE 0.9% 1,000 ML IV STA ×2 (08:25)
[2019-02-25] MEDS ORDERED: ONDANSETRON 4 MG/2 ML VIAL IVP STA ×2 (08:25→09:45)
[2019-02-25] MEDS ORDERED: KETOROLAC 30 MG/ML 1 ML VIAL IVP STA ×2 (08:25→10:29)
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
[2019-02-25 08:43] LABS: Basophils % (A) 0 %; Eosinophils # (A) 0.1 k/uL (0-0.7); Eosinophils % (A) 1 %; HCT 40.5 % (39.0-53.0); HGB 13.6 gm/dL (13.0-17.5); Lymphocytes # (A) 1.6 k/uL (1.0-4.8); Lymphocytes % (A) 21 %; MCH 26.4 pg (25.0-35.0); MCHC 33.6 g/dL (31.0-37.0); MCV 78.7 fL (80.0-100.0); Mean Platelet Volume 8.2; Monocytes # (A) 0.8 k/uL (0-1.0); Monocytes % (A) 10 %; Neutrophils % (A) 66 %; Platelet Count 240 k/uL (150-450); RBC 5.15 m/uL (4.30-5.90); RDW 15.9 % (11.5-15.5); WBC 7.6 k/uL (3.8-10.6)
[2019-02-25 09:06] LABS: ALT 38 U/L (21-72); AST 44 U/L (17-59); Alkaline Phosphatase 121 U/L (38-126); Amylase 43 U/L (30-110); Anion Gap 12 mmol/L; Blood Urea Nitrogen 23 mg/dL (9-20); Calcium 9.7 mg/dL (8.4-10.2); Carbon Dioxide 27 mmol/L (22-30); Chloride 97 mmol/L (98-107); Glucose 112 mg/dL (74-99); Lipase 40 U/L (23-300); Magnesium 1.9 mg/dL (1.6-2.3); Potassium 3.6 mmol/L (3.5-5.1); Sodium 136 mmol/L (137-145); Total Bilirubin 0.7 mg/dL (0.2-1.3); Total Protein 8.8 g/dL (6.3-8.2)
--- NOTE | 2019-02-25 09:19 | XR ---
Abdomen HISTORY: Abdomen pain Abdomen view is submitted on 2 images. Correlation to prior abdomen 11/12/2018 Postop changes again noted in the lumbar spine. Lung bases are clear. Heart size may be exaggerated b y technique. No evident pneumoperitoneum or bowel obstruction. There is some overlying artifact prese nt. Vascular calcifications present within the pelvis. Arthropathy noted in the hips. IMPRESSION: Nonobstructive bowel gas pattern. Additional findings above, follow-up as indicated.
[2019-02-25 09:28] LABS: Creatine Kinase 1267 U/L (55-170)
[2019-02-25] MEDS ORDERED: fentaNYL (PF) 50 MCG/ML 2 ML AMP IV STA (09:45)
--- NOTE | 2019-02-25 11:22 | CT ---
EXAMINATION TYPE: CT abdomen pelvis wo con DATE OF EXAM: 02/25/2019 COMPARISON: 11/14/2018 HISTORY: 53-year-old male Generalized pain with nausea CT DLP: 646.5 mGycm. Automated exposure control for dose reduction was used. TECHNIQUE: Contiguous axial scanning of the abdomen and pelvis without IV contrast. Coronal and sagit mike reconstructions performed. FINDINGS: Heart normal size without pericardial effusion. Lung bases clear without pleural effusion. Noncontrast appearance of the liver, right kidney, spleen, and pancreas show no gross abnormality. 1.2 cm hypodensity medial left upper pole too small for accurate CT characterization, probable small cyst. Gallbladder not seen, probably surgically absent. No dilated small bowel, free fluid, or free air. Scattered mild stool. No pericolonic inflammatory change seen. [id number] atherosclerotic calcifications abdominal aorta and moderate within the iliac arterie s. No mesenteric or retroperitoneal lymphadenopathy seen. Limitations due to metal hardware artifact relating to the patient's L2-L5 posterior fusion. Mild circumferential bladder wall thickening may relate to incomplete distention. Prostate gland braxton ures 3.4 cm wide. No abnormal fluid collection in the pelvis or pelvic lymphadenopathy. Bones: Degenerative changes of the hips with posterior fusion hardware in the lumbar spine and advanc ed degenerative disc disease below the fusion L5-S1. IMPRESSION: 1. Mild circumferential bladder wall thickening may relate to incomplete distention or cystitis. Cli nically correlate. 2. Otherwise, examination limitations due to lack of IV contrast and metal hardware artifact. No acu te inflammatory process identified in the abdomen or pelvis to explain the patient's symptoms.
[2019-02-25 11:24] LABS: Appearance,Urine Clear (Clear); Bilirubin,Urine Negative (Negative); Blood,Urine Small (Negative); Color,Urine Yellow; Glucose,Urine (UA) Negative (Negative); Hyaline Casts,Urine 3 /lpf (0-2); Ketones,Urine Trace (Negative); Leukocyte Esterase,Urine Negative (Negative); Mucus,Urine Occasional /hpf; Nitrite,Urine Negative (Negative); Protein,Urine 1+ (Negative); RBC,Urine 4 /hpf (0-5); Specific Gravity,Urine 1.027 (1.001-1.035); Squamous Epithelial Cell,Urine <1 /hpf (0-4); WBC,Urine 2 /hpf (0-5)
[2019-02-25] MEDS ORDERED: KETAMINE 10 MG/ML 20 ML VIAL IV ONE (11:47)
[2019-02-25] MEDS ORDERED: LORazepam 2 MG/ML INJ IV STA (11:48)
[2019-02-25] MEDS ORDERED: ONDANSETRON 4 MG/2 ML VIAL IVP PRN (14:26)
[2019-02-25] MEDS ORDERED: NALOXONE 0.4 MG/ML 1 ML VIAL IV PRN (14:26)
[2019-02-25] MEDS ORDERED: hydrALAZINE HCL 20 MG/ML 1 ML VIAL IVP STA (15:03)
[2019-02-25] MEDS: HYDROmorphone 1 MG/ML 1 ML SYRINGE IVP PRN ×4 (15:22→23:09)
[2019-02-25] MEDS ORDERED: METOCLOPRAMIDE 10 MG TAB PO PRN (17:48)
[2019-02-25] MEDS: SODIUM CHLORIDE 0.9% 1,000 ML IV SCH ×3 (18:18→21:09)
--- NOTE | 2019-02-25 18:23 | XR ---
EXAMINATION TYPE: XR chest 1V portable DATE OF EXAM: 02/25/2019 COMPARISON: 03/27/2018 HISTORY: Abdominal pain chest pain TECHNIQUE: Single frontal view of the chest is obtained. FINDINGS: Heart and mediastinum are normal. Lungs are clear. Diaphragm is normal. Bony thorax is int act. IMPRESSION: Normal chest. No change.
[2019-02-25] MEDS ORDERED: LORazepam 2 MG/ML INJ IV PRN (18:24)
[2019-02-25] MEDS ORDERED: SCOPOLAMINE 1.5MG/72HR PATCH TRANSDERM STA (18:53)
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
[2019-02-25] MEDS: HYOSCYAMINE ORAL DROPS 1.875 MG/15 ML BOTTLE PO SCH (20:04)
[2019-02-25] MEDS: IMIPRAMINE 10 MG TAB PO SCH (20:06)
[2019-02-25] MEDS: traZODone HCL 50 MG TAB PO SCH (20:06)
[2019-02-25] MEDS: SILDENAFIL 20 MG TAB PO SCH ×2 (20:07→23:07)
[2019-02-25] MEDS ORDERED: AMITRIPTYLINE HCL 25 MG TAB PO SCH (21:00)
[2019-02-25 21:09] LABS: Cocaine Screen,Urine Not Detected (NotDetected); Phencyclidine Screen,Urine Not Detected (NotDetected); Urn Cannabinoid Scrn Detected (NotDetected)
[2019-02-25 21:10] LABS: Amphetamine Screen,Urine Not Detected (NotDetected); Barbiturate Screen,Urine Not Detected (NotDetected); Benzodiazepines Screen,Urine Not Detected (NotDetected); Methadone Screen, Urine Not Detected (NotDetected); Opiate Screen,Urine Detected (NotDetected); Oxycodone Screen, Urine Not Detected (NotDetected); Tricyclic Antidepressant,Urine Not Detected (NotDetected)
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
[2019-02-25] MEDS: ONDANSETRON 4 MG/2 ML VIAL IVP PRN (23:13)
[2019-02-26] MEDS: HYOSCYAMINE ORAL DROPS 1.875 MG/15 ML BOTTLE PO SCH ×6 (01:59→21:52)
[2019-02-26] MEDS: oxyCODONE-APAP 10-325MG 1 EACH TAB PO PRN ×4 (02:01→21:54)
[2019-02-26] MEDS: SODIUM CHLORIDE 0.9% 1,000 ML IV SCH ×4 (02:01→21:56)
[2019-02-26] MEDS: HYDROmorphone 1 MG/ML 1 ML SYRINGE IVP PRN ×5 (05:12→21:50)
[2019-02-26] MEDS: amLODIPine 5 MG TAB PO SCH (08:41)
[2019-02-26] MEDS: LOSARTAN 25 MG TAB PO SCH (08:41)
[2019-02-26] MEDS: PANTOPRAZOLE 40 MG/10 ML VIAL IV SCH (08:41)
[2019-02-26] MEDS: SILDENAFIL 20 MG TAB PO SCH ×3 (08:45→21:52)
[2019-02-26 09:07] LABS: Basophils % (A) 1 %; Eosinophils # (A) 0.1 k/uL (0-0.7); Eosinophils % (A) 2 %; HCT 35.6 % (39.0-53.0); HGB 11.4 gm/dL (13.0-17.5); Lymphocytes # (A) 1.6 k/uL (1.0-4.8); Lymphocytes % (A) 30 %; MCH 25.9 pg (25.0-35.0); MCHC 31.9 g/dL (31.0-37.0); MCV 81.1 fL (80.0-100.0); Mean Platelet Volume 8.1; Monocytes # (A) 0.6 k/uL (0-1.0); Monocytes % (A) 12 %; Neutrophils # (A) 2.7 k/uL (1.3-7.7); Neutrophils % (A) 51 %; Platelet Count 185 k/uL (150-450); RDW 15.9 % (11.5-15.5); WBC 5.2 k/uL (3.8-10.6)
[2019-02-26 09:25] LABS: Anion Gap 5 mmol/L; Blood Urea Nitrogen 18 mg/dL (9-20); Calcium 8.4 mg/dL (8.4-10.2); Carbon Dioxide 27 mmol/L (22-30); Chloride 107 mmol/L (98-107); Creatine Kinase 797 U/L (55-170); Glucose 84 mg/dL (74-99); Potassium 3.5 mmol/L (3.5-5.1); Sodium 139 mmol/L (137-145)
--- NOTE | 2019-02-26 14:13 | P.PN ---
<Kassidy Villasenor - Last Filed: 02/26/19 14:12> Subjective Progress Note Date: 02/26/19 CHIEF COMPLAINT: Right lower quadrant pain, epigastric pain HISTORY OF PRESENT ILLNESS: Patient examined at the bedside. Patient reports feeling "so-so" today. He was started back on Tofranil, Trazadone, Levsin, and Sildenafil along with increased dose of his PPI yesterday. Patient states he drank some chicken broth this morning and had severe pain in his right lower quadrant and epigastric region. Patient denies pain to right lower quadrant at this time and states it is not tender to palpation currently. WBC 5.2. Hemoglobin 11.4. CK 797. PHYSICAL EXAM: VITAL SIGNS: Reviewed. GENERAL: Well-developed in no acute distress. HEENT: No sclera icterus. Extraocular movements grossly intact. Moist buccal mucosa. Head is atraumatic, normocephalic. ABDOMEN: Soft. Nondistended. Tenderness near epigastric region upon palpation. Positive bowel sounds. NEUROLOGIC: Alert and oriented. Cranial nerves II through XII grossly intact. ASSESSMENT: 1. Right upper quadrant including epigastric abdominal pain, acute and severe 2. Esophageal dysmotility with jackhammer esophagus 3. Atypical chest pain 4. Gastroesophageal reflux disease with diaphragmatic hiatal hernia 5. Hypertensive heart disease 6. Elevated creatinine kinase level 7. Acute dehydration PLAN: Case discussed with Dr. Berry. Patient will be scheduled for EGD tomorrow. Nurse practitioner note has been reviewed by physician. Signing provider agrees with the documented findings, assessment, and plan of care. Objective - Vital Signs Vital signs: Vital Signs Temp 98.2 F 02/26/19 12:18 Pulse 59 L 02/26/19 12:18 Resp 16 02/26/19 12:18 BP 167/89 02/26/19 12:18 Pulse Ox 99 02/26/19 12:18 Intake & Output 02/25/19 02/26/19 02/26/19 18:59 06:59 18:59 Intake Total 590 Output Total 1300 Balance -710 Weight 113.398 kg Intake: Oral 590 Output: Urine 1300 Other: Voiding Method Toilet Toilet Urinal Urinal - Labs CBC & Chem 7: 02/26/19 08:28 02/26/19 08:28 Labs: Abnormal Lab Results - Last 24 Hours (Table) 02/25/19 02/25/19 02/26/19 Range/Units 18:24 20:22 08:28 Hgb 11.4 L (13.0-17.5) gm/dL Hct 35.6 L (39.0-53.0) % RDW 15.9 H (11.5-15.5) % ESR 16 H (0-15) mm/hr Creatine Kinase (55-170) U/L Urine Opiates Screen Detected H (NotDetected) U Marijuana (THC) Screen Detected H (NotDetected) 02/26/19 Range/Units 08:28 Hgb (13.0-17.5) gm/dL Hct (39.0-53.0) % RDW (11.5-15.5) % ESR (0-15) mm/hr Creatine Kinase 797 H (55-170) U/L Urine Opiates Screen (NotDetected) U Marijuana (THC) Screen (NotDetected) Microbiology - Last 24 Hours (Table) 02/25/19 10:43 Urine Culture - Preliminary Urine,Clean Catch Assessment and Plan (1) Elevated creatine kinase level Current Visit: Yes Status: Acute Code(s): R74.8 - ABNORMAL LEVELS OF OTHER SERUM ENZYMES SNOMED Code(s): 067166637 (2) Intractable abdominal pain Current Visit: Yes Status: Acute Code(s): R10.9 - UNSPECIFIED ABDOMINAL PAIN SNOMED Code(s): 37045787 (3) Abdominal pain Current Visit: No Status: Acute Code(s): R10.9 - UNSPECIFIED ABDOMINAL PAIN SNOMED Code(s): 41029567 (4) Esophageal dysmotility Current Visit: No Status: Acute Code(s): K22.4 - DYSKINESIA OF ESOPHAGUS SNOMED Code(s): 095769929 (5) GERD (gastroesophageal reflux disease) Current Visit: No Status: Chronic Code(s): K21.9 - GASTRO-ESOPHAGEAL REFLUX DISEASE WITHOUT ESOPHAGITIS SNOMED Code(s): 004565124 (6) Hiatal hernia Current Visit: No Status: Chronic Code(s): K44.9 - DIAPHRAGMATIC HERNIA WITHOUT OBSTRUCTION OR GANGRENE SNOMED Code(s): 26769544 (7) Jackhammer esophagus Current Visit: No Status: Chronic Code(s): K22.9 - DISEASE OF ESOPHAGUS, UNSPECIFIED SNOMED Code(s): 074476536 <Anna Berry N - Last Filed: 02/26/19 21:04> Subjective Agree with FOAM FABRICATOR assessment above. He reports improvement of his symptoms following start of antispasmodic medications. His family is at bedside. He complains primarily of right upper quadrant abdominal pain. No further nausea. Separately, he is being assessed for sickle cell anemia per discussion with family. VITALS: Reviewed CONSTITUTIONAL: Well developed and in no acute distress. EYES: Conjuctivae without sclera icterus. Extraocular movements grossly intact. HEAD, EARS, NOSE, THROAT: Moist buccal mucosa. Head is atraumatic, normocephalic. Hears conversational speech. No nasal drainage. NECK: Supple. No JV distention. RESPIRATORY: Non-labored respirations and equal bilateral excursions. CARDIOVASCULAR: Regular rate and rhythm. Palpable 2+ radial pulses. ABDOMEN: No hepatomegaly. Soft. Nondistended. Decreased tenderness along the right upper quadrant. Resolve epigastric pain. LYMPH: No neck lymphadenopathy. No axillary lymphadenopathy. MUSCULOSKELETAL: No clubbing, cyanosis or edema. SKIN: Warm and well perfused with good skin turgor. NEUROLOGIC: Cranial nerves I through XII grossly intact. No focal or lateralizing signs. PSYCH: Appropriate affect. Alert and oriented to person, place and time. Displays appropriate insight. CLINCAL LABS: Reviewed. CPK moderately improved. Has anemia ASSESSMENT: 1. Right upper quadrant including epigastric abdominal pain, acute and severe 2. Esophageal dysmotility with jackhammer esophagus 3. Atypical chest pain 4. Gastroesophageal reflux disease with diaphragmatic hiatal hernia 5. Hypertensive heart disease 6. Elevated creatinine kinase level 7. Acute dehydration 8. Anemia. PLAN: 1. Continue Tofranil, trazadone, levsin, and sildenafil described with scopolamine patch for nausea. 2. Will proceed with EGD as duodenitis and small bowel pathology cannot be excluded. Objective - Vital Signs Vital signs: Vital Signs Temp 98.2 F 02/26/19 12:18 Pulse 59 L 02/26/19 12:18 Resp 16 02/26/19 12:18 BP 167/89 02/26/19 12:18 Pulse Ox 99 02/26/19 12:18 Intake & Output 02/26/19 02/26/19 02/27/19 06:59 18:59 06:59 Intake Total 590 1480 Output Total 1300 Balance -710 1480 Intake: Intake, IV Titration 1000 Amount Sodium Chloride 0.9% 1, 1000 000 ml @ 125 mls/hr IV . [facility] Rx#:[id number] Oral 590 480 Output: Urine 1300 Other: Voiding Method Toilet Urinal # Voids 900 - Labs CBC & Chem 7: 02/26/19 08:28 02/26/19 08:28 Labs: Abnormal Lab Results - Last 24 Hours (Table) 02/25/19 02/26/19 02/26/19 Range/Units 20:22 08:28 08:28 Hgb 11.4 L (13.0-17.5) gm/dL Hct 35.6 L (39.0-53.0) % RDW 15.9 H (11.5-15.5) % Creatine Kinase 797 H (55-170) U/L Urine Opiates Screen Detected H (NotDetected) U Marijuana (THC) Screen Detected H (NotDetected) Microbiology - Last 24 Hours (Table) 02/25/19 18:24 Blood Culture - Preliminary Blood No Growth after 24 hours 02/25/19 10:43 Urine Culture - Preliminary Urine,Clean Catch Assessment and Plan (1) Intractable abdominal pain Current Visit: Yes Status: Acute Code(s): R10.9 - UNSPECIFIED ABDOMINAL PAIN SNOMED Code(s): 75310274 (2) Esophageal dysmotility Current Visit: No Status: Acute Code(s): K22.4 - DYSKINESIA OF ESOPHAGUS SNOMED Code(s): 433932872 (3) GERD (gastroesophageal reflux disease) Current Visit: No Status: Chronic Code(s): K21.9 - GASTRO-ESOPHAGEAL REFLUX DISEASE WITHOUT ESOPHAGITIS SNOMED Code(s): 208820926 (4) Hiatal hernia Current Visit: No Status: Chronic Code(s): K44.9 - DIAPHRAGMATIC HERNIA WITHOUT OBSTRUCTION OR GANGRENE SNOMED Code(s): 87232210 (5) Jackhammer esophagus Current Visit: No Status: Chronic Code(s): K22.9 - DISEASE OF ESOPHAGUS, UNSPECIFIED SNOMED Code(s): 912773481 (6) Right upper quadrant abdominal pain Current Visit: No Status: Chronic Code(s): R10.11 - RIGHT UPPER QUADRANT PAIN SNOMED Code(s): 355272849 (7) Elevated creatine kinase level Current Visit: Yes Status: Acute Code(s): R74.8 - ABNORMAL LEVELS OF OTHER SERUM ENZYMES SNOMED Code(s): 891174207
[2019-02-26] MEDS: ONDANSETRON 4 MG/2 ML VIAL IVP PRN (15:38)
--- NOTE | 2019-02-26 16:41 | PN ---
PROGRESS NOTE DATE OF SERVICE: 02/26/2019 This 53-year-old gentleman admitted with severe abdominal pain mostly in the right side of the abdomen was being evaluated by Surgery, Dr. Berry, planning EGD and colonoscopy. No chest pain. No palpitations. No fever. Patient also has rhabdomyolysis, which is also improving. On exam, alert and oriented x3. The pulse is 59, blood pressure 167/89, respirations 16, temperature 98.2, pulse ox 99% on room air. HEENT: Conjunctivae normal. NECK: No jugular venous distention. CARDIOVASCULAR SYSTEM: S1, S2 muffled. RESPIRATORY SYSTEM: Breath sounds diminished at the bases. No rhonchi. No crackles. ABDOMEN: Soft, non-tender. No mass palpable. LEGS: No edema. No swelling. NERVOUS SYSTEM: No focal deficit. LABS: WBC 5.2, hemoglobin 11.4, creatine kinase 797. ASSESSMENT: 1. Recurrent abdominal pain for evaluation. 2. Rhabdomyolysis, mild. 3. Hyponatremia. 4. History of gastroesophageal reflux disease. 5. Hypertension. 6. Degenerative joint disease. 7. History of constipation. 8. Hiatal hernia. 9. History of degenerative joint disease. 10.Spinal stenosis. 11.History of cholecystectomy. 12.History of appendectomy. 13.Anemia. Rule out sickle cell anemia . RECOMMENDATION AND DISCUSSION: In this 53-year-old gentleman who presented with multiple complex medical issues, we will monitor the patient closely, continue the current management, continue symptomatic treatment. Otherwise at this time I recommend continuing with the current medications. Closely follow Surgery. Hemoglobin electrophoresis has been sent. Otherwise, recommend close followup with Dr. Augustin in the outpatient setting as well as Dr. Berry to continue followup. Guarded prognosis. Further recommendations to follow. MMODL / IJN: [id number] / [facility] HOSPITALKeagan
[2019-02-26] MEDS: traZODone HCL 50 MG TAB PO SCH (21:52)
[2019-02-26 22:40] VITALS: RESP 18
[2019-02-26] MEDS: IMIPRAMINE 10 MG TAB PO SCH (23:00)
[2019-02-27] MEDS: HYDROmorphone 1 MG/ML 1 ML SYRINGE IVP PRN ×4 (02:40→18:29)
[2019-02-27] MEDS: HYOSCYAMINE ORAL DROPS 1.875 MG/15 ML BOTTLE PO SCH ×5 (02:40→17:40)
[2019-02-27] MEDS ORDERED: fentaNYL (PF) 50 MCG/ML 2 ML AMP ONE (07:30)
[2019-02-27] MEDS ORDERED: PROPOFOL 10 MG/ML 20 ML VIAL IV ONE (07:30)
[2019-02-27] MEDS ORDERED: LIDOCAINE 1% INJ 10MG/ML (20 ML MDV) ONE (07:30)
[2019-02-27] MEDS ORDERED: IV FLUID CONTINUATION 1,000 ML IV ONE (07:30)
--- NOTE | 2019-02-27 07:37 | P.HPADDEND ---
H&P Addendum H&P Addendum Date: 02/27/19 Patient reports right upper quadrant abdominal pain. We'll proceed with upper endoscopy for history of gastritis including hiatal hernia and gastric esophageal reflux disease. Benefits and risks described
--- NOTE | 2019-02-27 07:48 | P.PCN ---
Date of Procedure: 02/27/19 Description of Procedure: PREOPERATIVE DIAGNOSIS: Gastroesophageal reflux disease. Esophageal dysmotility Epigastric abdominal pain Right upper quadrant abdominal pain POSTOPERATIVE DIAGNOSIS: Gastroesophageal reflux disease. Esophageal dysmotility Epigastric abdominal pain Right upper quadrant abdominal pain Gastritis Duodenitis OPERATION: Esophagogastroduodenoscopy with biopsies along antrum and duodenum SURGEON: Anna Berry MD ANESTHESIA: MAC. INDICATIONS: The patient is a 53-year-old male who presents with acute right upper quadrant including epigastric abdominal pain with history of gastroesophageal reflux disease including esophageal dysmotility. Benefits and risks of the procedure were described. Informed consent was obtained. DESCRIPTION: The patient was brought into the endoscopy suite and laid in the left lateral decubitus position. An Olympus gastroscope was passed along the posterior oropharynx down to the distal esophagus where the squamocolumnar junction was encountered at 44 cm from the incisors. The stomach was entered and no bile reflux was found. Additional findings are listed below. Biopsies with cold forceps were obtained of the antrum. The first through third portion of the duodenum was examined and unremarkable. Retroflexion of the scope confirmed Hi ll grade 2 lower esophageal valve. The squamocolumnar junction demonstrated LA grade A erosive esophagitis. The stomach was desufflated. The patient tolerated the procedure well. FINDINGS: Squamocolumnar junction 44 cm from the incisors. Diaphragmatic hiatus at 44 cm. Hill grade 2 lower esophageal valve. LA grade A erosive esophagitis. Mild duodenitis Hypertensive pyloric sphincter Chronic gastritis, mild superficial gastritis RECOMMENDATIONS: Upper endoscopy as needed. May restart regular diet Continue antispasmodic therapy
[2019-02-27] MEDS: amLODIPine 5 MG TAB PO SCH (08:25)
[2019-02-27] MEDS: LOSARTAN 25 MG TAB PO SCH (08:25)
[2019-02-27] MEDS: PANTOPRAZOLE 40 MG/10 ML VIAL IV SCH (08:25)
[2019-02-27] MEDS: SILDENAFIL 20 MG TAB PO SCH ×2 (08:25→17:40)
[2019-02-27 09:26] LABS: Calcium 8.7 mg/dL (8.4-10.2); Potassium 3.6 mmol/L (3.5-5.1)
[2019-02-27 09:32] LABS: Basophils % (A) 1 %; Eosinophils # (A) 0.2 k/uL (0-0.7); Eosinophils % (A) 5 %; HCT 37.8 % (39.0-53.0); HGB 12.3 gm/dL (13.0-17.5); Lymphocytes # (A) 1.3 k/uL (1.0-4.8); Lymphocytes % (A) 32 %; MCH 26.7 pg (25.0-35.0); MCHC 32.5 g/dL (31.0-37.0); Mean Platelet Volume 7.9; Monocytes # (A) 0.6 k/uL (0-1.0); Monocytes % (A) 15 %; Neutrophils # (A) 1.8 k/uL (1.3-7.7); Neutrophils % (A) 44 %; Platelet Count 164 k/uL (150-450); RBC 4.61 m/uL (4.30-5.90); RDW 15.5 % (11.5-15.5); WBC 4.2 k/uL (3.8-10.6)
[2019-02-27] MEDS: SODIUM CHLORIDE 0.9% 1,000 ML IV SCH (10:51)
--- NOTE | 2019-02-27 13:30 | P.PN ---
Subjective Progress Note Date: 02/27/19 HPI: The patient is a 53 year old male with esophageal dysmotility including intractable abdominal pain now improved since admission. Upper endoscopy findings of minimal gastritis was described. Previous large hiatal hernia now resolved. He is tolerating diet. Spasms have improved. VITALS: Reviewed CONSTITUTIONAL: Well developed and in no acute distress. EYES: Conjuctivae without sclera icterus. Extraocular movements grossly intact. HEAD, EARS, NOSE, THROAT: Moist buccal mucosa. Head is atraumatic, normocephalic. Hears conversational speech. No nasal drainage. NECK: Supple. No JV distention. RESPIRATORY: Non-labored respirations and equal bilateral excursions. CARDIOVASCULAR: Regular rate and rhythm. Palpable 2+ radial pulses. ABDOMEN: Soft. Nondistended. No peritonitis. MUSCULOSKELETAL: No clubbing, cyanosis or edema. SKIN: Warm and well perfused with good skin turgor. NEUROLOGIC: Cranial nerves I through XII grossly intact. No focal or lateralizing signs. PSYCH: Appropriate affect. Alert and oriented to person, place and time. Displays appropriate insight. CLINCAL LABS: Anemia with Hgb improved from 11. 4 to over 12.0 ASSESSMENT: 1. Right upper quadrant including epigastric abdominal pain, acute and severe, improved 2. Esophageal dysmotility with jackhammer esophagus 3. Atypical chest pain 4. Gastroesophageal reflux disease with diaphragmatic hiatal hernia 5. Hypertensive heart disease 6. Elevated creatinine kinase level, improved 7. Acute dehydration, resolved 8. Anemia. PLAN: 1. Recommend outpatient manometry for esophageal dysmotility. 2. Continue Tofranil, trazadone, levsin, and sildenafil including scopolamine patch as needed for nausea for 1 to 2 weeks. 3. The patient and famili were educated on management of esophageal spasms michel patricia primarily with prevention. Objective - Vital Signs Vital signs: Vital Signs Temp 97.4 F L 02/27/19 07:48 Pulse 53 L 02/27/19 09:09 Resp 18 02/27/19 09:09 BP 167/79 02/27/19 09:09 Pulse Ox 98 02/27/19 09:09 Intake & Output 02/26/19 02/27/19 02/27/19 18:59 06:59 18:59 Intake Total 1480 590 200 Balance 1480 590 200 Intake: IV 200 Intake, IV Titration 1000 Amount Sodium Chloride 0.9% 1, 1000 000 ml @ 125 mls/hr IV . Q8H [facility] Rx#:[id number] Oral 480 590 Other: Voiding Method Toilet Urinal # Voids 900 1 - Labs CBC & Chem 7: 02/27/19 08:39 02/27/19 08:39 Labs: Abnormal Lab Results - Last 24 Hours (Table) 02/27/19 02/27/19 Range/Units 08:39 08:39 Hgb 12.3 L (13.0-17.5) gm/dL Hct 37.8 L (39.0-53.0) % Creatine Kinase 524 H (55-170) U/L Microbiology - Last 24 Hours (Table) 02/25/19 10:43 Urine Culture - Final Urine,Clean Catch 02/25/19 18:24 Blood Culture - Preliminary Blood No Growth after 24 hours Assessment and Plan (1) Intractable abdominal pain Current Visit: Yes Status: Acute Code(s): R10.9 - UNSPECIFIED ABDOMINAL PAIN SNOMED Code(s): 49864928 (2) Esophageal dysmotility Current Visit: No Status: Acute Code(s): K22.4 - DYSKINESIA OF ESOPHAGUS SNOMED Code(s): 386191409 (3) GERD (gastroesophageal reflux disease) Current Visit: No Status: Chronic Code(s): K21.9 - GASTRO-ESOPHAGEAL REFLUX DISEASE WITHOUT ESOPHAGITIS SNOMED Code(s): 886014917 (4) Hiatal hernia Current Visit: No Status: Chronic Code(s): K44.9 - DIAPHRAGMATIC HERNIA WITHOUT OBSTRUCTION OR GANGRENE SNOMED Code(s): 26780989 (5) Jackhammer esophagus Current Visit: No Status: Chronic Code(s): K22.9 - DISEASE OF ESOPHAGUS, UNSPECIFIED SNOMED Code(s): 681098533 (6) Right upper quadrant abdominal pain Current Visit: No Status: Chronic Code(s): R10.11 - RIGHT UPPER QUADRANT PAIN SNOMED Code(s): 214820328 (7) Elevated creatine kinase level Current Visit: Yes Status: Acute Code(s): R74.8 - ABNORMAL LEVELS OF OTHER SERUM ENZYMES SNOMED Code(s): 425893815
[2019-02-27] MEDS: oxyCODONE-APAP 10-325MG 1 EACH TAB PO PRN (17:46)
[2019-02-27 18:02] VITALS: BP 155/84; PULSE 66; TEMP 97.9
--- NOTE | 2019-02-28 08:24 | DS ---
DISCHARGE SUMMARY DATE OF SERVICE: 02/27/2019 FINAL DIAGNOSES: 1. Recurrent abdominal pain for evaluation possibly secondary to duodenitis and gastritis. 2. Rhabdomyolysis, mild. 3. Hyponatremia. 5. Gastroesophageal reflux disease. 6. Hypertension. 7. History of degenerative joint disease. 8. History of constipation. 9. History of hiatal hernia. 10.History of degenerative joint disease. 11.History of spinal stenosis. 12.History of cholecystectomy. 13.History of appendectomy. 14.Mild anemia. DISCHARGE DISPOSITION: The patient will be discharged in stable condition with guarded prognosis. HISTORY OF PRESENT ILLNESS: This 53-year-old gentleman with past medical history of multiple medical problems being followed by Dr. Donald Augustin in the outpatient setting was admitted with abdominal pain. Treated symptomatically. Dr. Berry saw the patient, evaluated the patient. Patient underwent EGD which showed evidence of gastritis and duodenitis. Recommended symptomatic treatment. Biopsy pending at this time. On exam, vitals are stable. CARDIOVASCULAR: S1, S2 muffled. ABDOMEN: Soft, nontender. NERVOUS SYSTEM: No focal deficit. DISCHARGE ADVICE: 1. Diet is cardiac. 2. Activity limited until followup. 3. Follow up with Dr. Augustin in 2 to 3 days. 4. Follow up with Dr. Berry as recommended. Medications are as follows: 1. Amitriptyline 25 mg q.h.s. 2. Cozaar 25 mg p.o. daily. 3. Hydrocodone 7.5 t.i.d. p.r.n. 4. Norvasc 5 mg p.o. daily. 5. Percocet 1 tablet p.o. t.i.d. p.r.n. 6. Reglan 10 mg t.i.d. p.r.n. 7. Levsin 0.125 mg q.4 p.r.n. 8. Omeprazole 40 mg p.o. b.i.d. 9. Revatio 20 mg p.o. t.i.d. 10.Tofranil 10 mg q.h.s. 11.Trazodone 150 mg q.h.s. Once again, the patient will be discharged in a stable condition with guarded prognosis. MMODL / IJN: [id number] / MTDD
== END 2019-02-27 18:57 | disposition home or self-care (01) | DRG 392 ==
LOC: EC 08:01 → 3NMEDONC 14:26 → OBSVTOIN 02-26 13:58
PROVIDERS: ADMIT Internal Medicine; ATTEND Internal Medicine
PROC: 0DB78ZX Excision of Stomach, Pylorus, Via Natural or Artificial Opening Endoscopic, Diagnostic (ICD-10-PCS; 2019-02-27)
PROC: 0DB98ZX Excision of Duodenum, Via Natural or Artificial Opening Endoscopic, Diagnostic (ICD-10-PCS; principal; 2019-02-27 07:30)
DX: K22.4 Dyskinesia of esophagus (principal); E87.1 Hypo-osmolality and hyponatremia; K22.10 Ulcer of esophagus without bleeding; M62.82 Rhabdomyolysis; K31.1 Adult hypertrophic pyloric stenosis; D64.9 Anemia, unspecified; E86.0 Dehydration; I11.9 Hypertensive heart disease without heart failure; K21.0 Gastro-esophageal reflux disease with esophagitis; K44.9 Diaphragmatic hernia without obstruction or gangrene; K29.50 Unspecified chronic gastritis without bleeding; K29.80 Duodenitis without bleeding; M19.90 Unspecified osteoarthritis, unspecified site; M48.00 Spinal stenosis, site unspecified; Z79.899 Other long term (current) drug therapy; Z82.49 Family history of ischemic heart disease and other diseases of the circulatory system; Z87.891 Personal history of nicotine dependence; Z98.1 Arthrodesis status; R74.8 Abnormal levels of other serum enzymes; Z91.041 Radiographic dye allergy status; Z91.013 Allergy to seafood; R07.89 Other chest pain; Z90.49 Acquired absence of other specified parts of digestive tract
CPT/HCPCS: 36415; 43239; 71045; 74018; 74176; 80048; 80053; 80306; 81001; 82150; 82550; 83021; 83605; 83690; 83735; 84484; 85025; 85652; 86140; 87040; 87086; 88305; 96361; 96374; 96375; 96376; 99285

== ENCOUNTER 2020-12-01 06:37 | Emergency (ER) | payer OTHER ==
[2020-12-01] MEDS ORDERED: ONDANSETRON 4 MG/2 ML VIAL IVP STA (06:52)
[2020-12-01] MEDS ORDERED: HYDROmorphone 1 MG/ML 1 ML SYRINGE IVP STA ×2 (06:53→07:46)
[2020-12-01] MEDS ORDERED: SODIUM CHLORIDE 0.9% 1,000 ML IV STA (06:54)
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
[2020-12-01 07:12] LABS: Basophils % (A) 0 %; Eosinophils # (A) 0.1 k/uL (0-0.7); Eosinophils % (A) 1 %; HGB 14.7 gm/dL (13.0-17.5); Lymphocytes # (A) 1.6 k/uL (1.0-4.8); Lymphocytes % (A) 19 %; MCH 27.8 pg (25.0-35.0); MCHC 32.7 g/dL (31.0-37.0); MCV 84.9 fL (80.0-100.0); Mean Platelet Volume 8.5; Monocytes # (A) 0.9 k/uL (0-1.0); Monocytes % (A) 10 %; Neutrophils # (A) 5.8 k/uL (1.3-7.7); Neutrophils % (A) 68 %; Platelet Count 223 k/uL (150-450); RDW 14.4 % (11.5-15.5); WBC 8.6 k/uL (3.8-10.6)
[2020-12-01 07:21] LABS: ALT 45 U/L (4-49); AST 48 U/L (17-59); African American GFR (CKD) >90 (>60 ml/min/1.73 sqM); Albumin 4.8 g/dL (3.5-5.0); Alkaline Phosphatase 103 U/L (38-126); Amylase 63 U/L (30-110); Anion Gap 11 mmol/L; Blood Urea Nitrogen 19 mg/dL (9-20); Calcium 9.7 mg/dL (8.4-10.2); Carbon Dioxide 27 mmol/L (22-30); Chloride 96 mmol/L (98-107); Glucose 126 mg/dL (74-99); Lipase 35 U/L (23-300); Non-African American GFR(CKD) >90 (>60 ml/min/1.73 sqM); Sodium 134 mmol/L (137-145); Total Bilirubin 0.7 mg/dL (0.2-1.3); Total Protein 8.6 g/dL (6.3-8.2)
[2020-12-01 07:33] VITALS: RESP 16
[2020-12-01 07:33] LABS: Prothrombin Time 10.9 sec (9.0-12.0)
[2020-12-01] MEDS ORDERED: KETOROLAC 15 MG/ML 1 ML VIAL IVP STA (07:46)
[2020-12-01 08:08] LABS: Appearance,Urine Clear (Clear); Bilirubin,Urine Negative (Negative); Blood,Urine Trace (Negative); Color,Urine Light Yellow; Glucose,Urine (UA) Negative (Negative); Ketones,Urine Negative (Negative); Leukocyte Esterase,Urine Negative (Negative); Nitrite,Urine Negative (Negative); Protein,Urine Trace (Negative); RBC,Urine <1 /hpf (0-5); Specific Gravity,Urine 1.006 (1.001-1.035); Urobilinogen,Urine <2.0 mg/dL (<2.0); WBC,Urine <1 /hpf (0-5)
--- NOTE | 2020-12-01 08:32 | XR ---
EXAMINATION TYPE: XR chest 1V portable DATE OF EXAM: 12/01/2020 COMPARISON: Chest x-ray February 25, 2019 HISTORY: Chest and upper abdominal pain. TECHNIQUE: Single frontal view of the chest is obtained. FINDINGS: There is no suspicious new focal air space opacity, pleural effusion, or pneumothorax seen . The cardiac silhouette size is stable and within normal limits. Overlying EKG leads on current s tudy. The osseous structures are intact. IMPRESSION: No acute process. No significant change from prior.
--- NOTE | 2020-12-01 09:05 | CT ---
EXAMINATION TYPE: CT abdomen pelvis wo con DATE OF EXAM: 12/01/2020 COMPARISON: 02/25/2019 INDICATION: RLQ pain DLP: 591.6 mGycm, Automated exposure control for dose reduction was used. CONTRAST: 0 mL of Isovue 300. Study performed without Oral Contrast TECHNIQUE: Axial images were obtained from above the diaphragm to the pubic rami in the axial plane a t 5 mm thick sections. Reconstructed images are reviewed on the computer in the coronal plane. FINDINGS: Limited CT sections are obtained the lung bases. The lung bases are clear. CT ABDOMEN: Beam hardening artifact from lumbar fixation causes some streak artifact. Liver: Normal Spleen: Normal Pancreas: Normal Adrenal glands: The adrenal glands are normal. Gallbladder: Not identified Kidneys: No masses are evident. No hydronephrosis is present. No cysts are present. No renal stone s are evident. Aorta: Vascular calcification is within the aorta. Inferior vena cava: Normal. CT PELVIS: Loops of bowel within the abdomen and pelvis are normal. The studies without oral contrast limiti ng bowel evaluation. Small bowel loops containing fluid and air may be at the upper limits of normal for size within the mid to distal small bowel. Consider ileus. Appendix: What appears to be the appendix along the psoas margin is normal with small amount of air. This is difficult to confirm as the appendix. Clinical management of any suspected appendicitis is re commended. No suspicious dilated tubular structure or inflammatory changes or secondary signs are nicho dent suggest acute appendicitis. Urinary bladder: Normal. Genitourinary structures: Prostate appears normal. Osseous structures: No suspicious lytic or sclerotic lesions. IMPRESSIONS: 1. No suspicious changes to suggest acute appendicitis. Clinical management is recommended. 2. Mild ileus could be considered potentially within the differential.
[2020-12-01 10:06] VITALS: BP 151/89; PULSE 61; TEMP 97.7
== END 2020-12-01 10:05 | disposition home or self-care (01) ==
LOC: EC 06:37
DX: R10.9 Unspecified abdominal pain (principal); R10.813 Right lower quadrant abdominal tenderness; I10 Essential (primary) hypertension; M54.9 Dorsalgia, unspecified; R11.2 Nausea with vomiting, unspecified; R19.7 Diarrhea, unspecified; Z79.899 Other long term (current) drug therapy; Z91.041 Radiographic dye allergy status; Z91.013 Allergy to seafood; Z91.09 Other allergy status, other than to drugs and biological substances; Z90.49 Acquired absence of other specified parts of digestive tract; Z90.89 Acquired absence of other organs
CPT/HCPCS: 36415; 93005; 80053; 82150; 83690; 84484; 85025; 85610; 85730; 81001; 71045; 74176; 99285; 96374; 96375 ×2; 96376; 96361; J2405; J1170; J1885

== ENCOUNTER 2020-12-01 21:41 | Inpatient (IN) | payer OTHER ==
[2020-12-01] MEDS ORDERED: ONDANSETRON 4 MG/2 ML VIAL IVP STA (21:51)
[2020-12-01] MEDS ORDERED: SODIUM CHLORIDE 0.9% 1,000 ML IV STA (21:51)
[2020-12-01] MEDS ORDERED: METOCLOPRAMIDE 5 MG/ML 2 ML VIAL IVP STA (21:51)
[2020-12-01] MEDS ORDERED: FAMOTIDINE 20 MG/2 ML VIAL IV STA (21:52)
[2020-12-01] MEDS ORDERED: HALOPERIDOL LACTATE 5 MG/ML 1 ML VIAL IVP ONE (21:55)
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
[2020-12-01 22:10] LABS: Basophils # (A) 0.1 k/uL (0-0.2); Basophils % (A) 1 %; Eosinophils # (A) 0.1 k/uL (0-0.7); Eosinophils % (A) 2 %; HCT 43.4 % (39.0-53.0); HGB 14.6 gm/dL (13.0-17.5); Lymphocytes # (A) 1.6 k/uL (1.0-4.8); Lymphocytes % (A) 18 %; MCH 28.8 pg (25.0-35.0); MCHC 33.8 g/dL (31.0-37.0); MCV 85.4 fL (80.0-100.0); Mean Platelet Volume 8.5; Monocytes # (A) 1.1 k/uL (0-1.0); Monocytes % (A) 12 %; Neutrophils # (A) 5.6 k/uL (1.3-7.7); Neutrophils % (A) 65 %; Platelet Count 201 k/uL (150-450); RBC 5.08 m/uL (4.30-5.90); RDW 14.2 % (11.5-15.5); WBC 8.6 k/uL (3.8-10.6)
[2020-12-01] MEDS ORDERED: HYDROmorphone 1 MG/ML 1 ML SYRINGE IVP STA (22:18)
[2020-12-01 22:22] LABS: ALT 165 U/L (4-49); African American GFR (CKD) >90 (>60 ml/min/1.73 sqM); Amylase 66 U/L (30-110); Anion Gap 8 mmol/L; Blood Urea Nitrogen 25 mg/dL (9-20); Calcium 9.2 mg/dL (8.4-10.2); Carbon Dioxide 28 mmol/L (22-30); Chloride 97 mmol/L (98-107); Glucose 117 mg/dL (74-99); Lipase 81 U/L (23-300); Non-African American GFR(CKD) >90 (>60 ml/min/1.73 sqM); Sodium 133 mmol/L (137-145); Total Bilirubin 0.9 mg/dL (0.2-1.3)
[2020-12-01 22:23] LABS: Partial Thromboplastin Time 24.2 sec (22.0-30.0); Prothrombin Time 10.8 sec (9.0-12.0)
--- NOTE | 2020-12-01 22:40 | XR ---
EXAMINATION TYPE: XR KUB DATE OF EXAM: 12/01/2020 COMPARISON: 10/26/2019 HISTORY: Abdominal pain TECHNIQUE: 2 views supine FINDINGS: There is a gas-filled distended loop of small bowel in the left mid abdomen. There is no ev idence of free air. There is gas down to the rectum. Lung bases are clear. There is posterior fusion surgery in the lower lumbar spine. I see no definite calcifications over the kidneys. IMPRESSION: Nonacute abdomen. There is evidence for small bowel ileus. This appears new compared to o ld exam. No evidence of a mechanical bowel obstruction. No free air.
[2020-12-01 22:43] LABS: AST 169 U/L (17-59); Albumin 4.7 g/dL (3.5-5.0); Alkaline Phosphatase 138 U/L (38-126); Total Protein 8.6 g/dL (6.3-8.2)
[2020-12-01] MEDS ORDERED: NALOXONE 0.4 MG/ML 1 ML VIAL IV PRN (23:05)
[2020-12-01] MEDS: SODIUM CHLORIDE 0.9% 1,000 ML IV SCH (23:30)
[2020-12-01] MEDS: amLODIPine 10 MG TAB PO SCH (23:32)
[2020-12-02 00:17] LABS: Appearance,Urine Clear (Clear); Bilirubin,Urine Negative (Negative); Blood,Urine Negative (Negative); Color,Urine Colorless; Glucose,Urine (UA) Negative (Negative); Ketones,Urine Negative (Negative); Leukocyte Esterase,Urine Negative (Negative); Nitrite,Urine Negative (Negative); PH, Urine 6.5 (5.0-8.0); Protein,Urine Negative (Negative); Specific Gravity,Urine 1.002 (1.001-1.035); Urobilinogen,Urine <2.0 mg/dL (<2.0)
[2020-12-02] MEDS: HYDROmorphone 1 MG/ML 1 ML SYRINGE IVP PRN ×8 (01:18→22:41)
[2020-12-02 06:03] LABS: Basophils % (A) 0 %; Eosinophils # (A) 0.1 k/uL (0-0.7); Eosinophils % (A) 1 %; HCT 41.2 % (39.0-53.0); HGB 12.9 gm/dL (13.0-17.5); Lymphocytes # (A) 1.6 k/uL (1.0-4.8); Lymphocytes % (A) 22 %; MCH 27.2 pg (25.0-35.0); MCHC 31.4 g/dL (31.0-37.0); MCV 86.7 fL (80.0-100.0); Mean Platelet Volume 8.1; Monocytes # (A) 0.9 k/uL (0-1.0); Monocytes % (A) 13 %; Neutrophils # (A) 4.4 k/uL (1.3-7.7); Neutrophils % (A) 60 %; Platelet Count 174 k/uL (150-450); RBC 4.75 m/uL (4.30-5.90); RDW 14.3 % (11.5-15.5); WBC 7.3 k/uL (3.8-10.6)
[2020-12-02 06:15] LABS: ALT 135 U/L (4-49); AST 114 U/L (17-59); African American GFR (CKD) >90 (>60 ml/min/1.73 sqM); Albumin 3.6 g/dL (3.5-5.0); Alkaline Phosphatase 121 U/L (38-126); Anion Gap 2 mmol/L; Blood Urea Nitrogen 20 mg/dL (9-20); Calcium 8.4 mg/dL (8.4-10.2); Carbon Dioxide 30 mmol/L (22-30); Chloride 105 mmol/L (98-107); Glucose 100 mg/dL (74-99); Non-African American GFR(CKD) >90 (>60 ml/min/1.73 sqM); Potassium 3.7 mmol/L (3.5-5.1); Sodium 137 mmol/L (137-145); Total Bilirubin 0.6 mg/dL (0.2-1.3); Total Protein 6.9 g/dL (6.3-8.2)
[2020-12-02] MEDS: PANTOPRAZOLE 40 MG/10 ML VIAL IV SCH (07:18)
[2020-12-02] MEDS: SODIUM CHLORIDE 0.9% 1,000 ML IV SCH ×3 (07:19→20:34)
[2020-12-02] MEDS: amLODIPine 10 MG TAB PO SCH (07:19)
[2020-12-02] MEDS ORDERED: methylPREDNISolone SOD SUCCI 125 MG/2 ML VIAL IV STA (14:12)
[2020-12-02] MEDS: ONDANSETRON 4 MG/2 ML VIAL IVP PRN ×2 (14:33→22:51)
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
[2020-12-02] MEDS ORDERED: BARIUM SULFATE 450 ML ORAL.SUSP BOTTLE PO PRN (14:56)
[2020-12-02] MEDS: BARIUM SULFATE 450 ML ORAL.SUSP BOTTLE PO PRN ×2 (15:59→18:52)
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
[2020-12-02] MEDS ORDERED: diphenhydrAMINE 50 MG/ML 1 ML VIAL IVP ONE (19:30)
[2020-12-02] MEDS ORDERED: FAMOTIDINE 20 MG/2 ML VIAL IV PRN (19:30)
--- NOTE | 2020-12-02 22:26 | CT ---
EXAMINATION TYPE: CT abdomen pelvis w con DATE OF EXAM: 12/02/2020 COMPARISON: 12/01/2019 HISTORY: Abdominal pain CT DLP: 595.1 mGycm Automated exposure control for dose reduction was used. TECHNIQUE: Helical acquisition of images was performed from the lung bases through the pelvis. IV CONTRAST: 100 mL of Isovue-300. FINDINGS: LUNG BASES: No significant abnormality is appreciated. LIVER/GB: No significant abnormality is appreciated. PANCREAS: No significant abnormality is seen. SPLEEN: No significant abnormality is seen. ADRENALS: No significant abnormality is seen. KIDNEYS: No significant abnormality is seen. PERITONEAL CAVITY: No pneumoperitoneum or peritoneal fluid. RETROPERITONEAL ADENOPATHY: None visualized REPRODUCTIVE ORGANS: No significant abnormality is seen URINARY BLADDER: No significant abnormality is seen. PELVIC ADENOPATHY: None visualized. OSSEOUS STRUCTURES: No significant abnormality is seen. BOWEL: No significant abnormality is seen. OTHER: No acute vascular findings. However, prominent nonaneurysmal atherosclerotic intimal calci fication seen throughout the visualized arterial anatomy. IMPRESSION: NO ACUTE PROCESS
[2020-12-03] MEDS: HYDROmorphone 1 MG/ML 1 ML SYRINGE IVP PRN ×7 (01:47→22:39)
[2020-12-03] MEDS: ONDANSETRON 4 MG/2 ML VIAL IVP PRN ×2 (05:56→19:52)
[2020-12-03] MEDS: SODIUM CHLORIDE 0.9% 1,000 ML IV SCH ×3 (06:04→17:29)
[2020-12-03] MEDS: PANTOPRAZOLE 40 MG/10 ML VIAL IV SCH (08:57)
[2020-12-03] MEDS: amLODIPine 10 MG TAB PO SCH (08:57)
[2020-12-03 09:03] LABS: Basophils % (A) 0 %; Eosinophils # (A) 0.1 k/uL (0-0.7); Eosinophils % (A) 1 %; HCT 40.3 % (39.0-53.0); Lymphocytes # (A) 1.9 k/uL (1.0-4.8); Lymphocytes % (A) 24 %; MCH 28.1 pg (25.0-35.0); MCHC 32.2 g/dL (31.0-37.0); MCV 87.4 fL (80.0-100.0); Mean Platelet Volume 7.8; Monocytes # (A) 1.1 k/uL (0-1.0); Monocytes % (A) 13 %; Neutrophils # (A) 4.7 k/uL (1.3-7.7); Neutrophils % (A) 58 %; Platelet Count 153 k/uL (150-450); RBC 4.62 m/uL (4.30-5.90); RDW 14.1 % (11.5-15.5)
[2020-12-03 09:14] LABS: ALT 100 U/L (4-49); AST 57 U/L (17-59); African American GFR (CKD) >90 (>60 ml/min/1.73 sqM); Albumin 3.8 g/dL (3.5-5.0); Albumin/Globulin Ratio 1.2; Alkaline Phosphatase 108 U/L (38-126); Anion Gap 5 mmol/L; Blood Urea Nitrogen 16 mg/dL (9-20); Calcium 8.6 mg/dL (8.4-10.2); Carbon Dioxide 27 mmol/L (22-30); Chloride 105 mmol/L (98-107); Globulin 3.3 g/dL; Glucose 92 mg/dL (74-99); Non-African American GFR(CKD) >90 (>60 ml/min/1.73 sqM); Sodium 137 mmol/L (137-145); Total Bilirubin 0.6 mg/dL (0.2-1.3); Total Protein 7.1 g/dL (6.3-8.2)
[2020-12-03] MEDS: DICYCLOMINE 20 MG TAB PO SCH ×3 (12:17→19:52)
--- NOTE | 2020-12-03 12:20 | P.PN ---
Subjective Progress Note Date: 12/03/20 CHIEF COMPLAINT: Abdominal pain HISTORY OF PRESENT ILLNESS: Patient is being followed for possible ileus. Patient reporting that his abdominal pain is doing better today. He still reports that it's on the right side of the abdomen. He is passing gas. Denies any bowel movement. Denies any nausea or vomiting. He had a computed tomography scan of the abdomen and pelvis which showed no evidence of acute process. It showed no evidence of bowel obstruction or ileus. Patient denies any nausea vomiting. He's afebrile. WBC 7.3 PHYSICAL EXAM: VITAL SIGNS: Reviewed. GENERAL: Well-developed in no acute distress. HEENT: No sclera icterus. Extraocular movements grossly intact. Moist buccal mucosa. Head is atraumatic, normocephalic. ABDOMEN: Soft. Mild tenderness with palpation of the right side of the abdomen NEUROLOGIC: Alert and oriented. Cranial nerves II through XII grossly intact. ASSESSMENT: 1. Abdominal pain possibly secondary to ileus. Patient is showing improvement 2. Mildly elevated LFTs resolving PLAN: -Start patient on a regular diet -No plans for any surgical intervention -Patient is stable for discharge from surgical standpoint -Encourage patient to ambulate Physician [employer] note has been reviewed by physician. Signing provider agrees with the documented findings, assessment, and plan of care. Objective - Vital Signs Vital signs: Vital Signs Temp 98.5 F 12/03/20 07:54 Pulse 62 12/03/20 07:54 Resp 16 12/03/20 07:54 BP 159/90 12/03/20 07:54 Pulse Ox 99 12/03/20 07:54 Intake & Output 12/02/20 12/03/20 12/03/20 18:59 06:59 18:59 Intake Total 1560 Output Total 750 700 Balance -750 860 Intake: Intake, IV Titration 1560 Amount Sodium Chloride 0.9% 1, 1560 000 ml @ 130 mls/hr IV . Q7H42M [facility] Rx#:[id number] Output: Urine 750 700 Other: Voiding Method Toilet Toilet Urinal Urinal # Voids 4 - Labs CBC & Chem 7: 12/03/20 08:34 12/03/20 08:34 Labs: Abnormal Lab Results - Last 24 Hours (Table) 12/03/20 12/03/20 Range/Units 08:34 08:34 Monocytes # 1.1 H (0-1.0) k/uL ALT 100 H (4-49) U/L
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
[2020-12-04] MEDS: HYDROmorphone 1 MG/ML 1 ML SYRINGE IVP PRN ×4 (03:00→14:09)
[2020-12-04] MEDS: SODIUM CHLORIDE 0.9% 1,000 ML IV SCH (06:18)
[2020-12-04] MEDS: DICYCLOMINE 20 MG TAB PO SCH ×2 (08:12→11:54)
[2020-12-04] MEDS: amLODIPine 10 MG TAB PO SCH (08:13)
[2020-12-04] MEDS: PANTOPRAZOLE 40 MG/10 ML VIAL IV SCH (08:13)
[2020-12-04 14:06] VITALS: BP 143/81; PULSE 65; RESP 13; TEMP 97.8
[2020-12-04] MEDS: ONDANSETRON 4 MG/2 ML VIAL IVP PRN (14:10)
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
== END 2020-12-04 17:00 | disposition home or self-care (01) | DRG 390 ==
LOC: EC 21:41 → 5NMEDONC 23:06
PROVIDERS: ADMIT Hospitalist; ATTEND Hospitalist
DX: K56.7 Ileus, unspecified (principal); M48.00 Spinal stenosis, site unspecified; G89.29 Other chronic pain; I10 Essential (primary) hypertension; K21.00 Gastro-esophageal reflux disease with esophagitis, without bleeding; Z79.899 Other long term (current) drug therapy; Z82.49 Family history of ischemic heart disease and other diseases of the circulatory system; Z82.61 Family history of arthritis; Z87.891 Personal history of nicotine dependence; Z90.49 Acquired absence of other specified parts of digestive tract; Z98.1 Arthrodesis status; R94.5 Abnormal results of liver function studies; Z91.041 Radiographic dye allergy status; Z91.013 Allergy to seafood; E66.9 Obesity, unspecified; Z68.30 Body mass index [BMI] 30.0-30.9, adult; K59.00 Constipation, unspecified; M19.90 Unspecified osteoarthritis, unspecified site
CPT/HCPCS: 36415; 71045; 74018; 74176; 74177; 80053; 81001; 81003; 82150; 83690; 84484; 85025; 85610; 85730; 93005; 96361; 96374; 96375; 96376; 99285

== ENCOUNTER 2021-03-28 11:39 | Emergency (ER) | payer OTHER ==
[2021-03-28] MEDS ORDERED: diphenhydrAMINE 50 MG/ML 1 ML VIAL IVP STA (11:50)
[2021-03-28] MEDS ORDERED: ONDANSETRON 4 MG/2 ML VIAL IVP STA (11:50)
[2021-03-28] MEDS ORDERED: SODIUM CHLORIDE 0.9% 1,000 ML IV STA (11:50)
[2021-03-28] MEDS ORDERED: HYDROmorphone 1 MG/ML 1 ML SYRINGE IVP STA (11:50)
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
[2021-03-28] MEDS ORDERED: HYDROmorphone 2 MG/ML 1 ML SYRINGE ONE (11:59)
[2021-03-28 12:26] LABS: Basophils % (A) 1 %; Eosinophils # (A) 0.1 k/uL (0-0.7); Eosinophils % (A) 1 %; HCT 45.5 % (39.0-53.0); HGB 14.1 gm/dL (13.0-17.5); Lymphocytes # (A) 1.2 k/uL (1.0-4.8); Lymphocytes % (A) 23 %; MCH 27.3 pg (25.0-35.0); MCHC 30.9 g/dL (31.0-37.0); MCV 88.1 fL (80.0-100.0); Mean Platelet Volume 7.8; Monocytes # (A) 0.3 k/uL (0-1.0); Monocytes % (A) 6 %; Neutrophils # (A) 3.6 k/uL (1.3-7.7); Neutrophils % (A) 67 %; Platelet Count 231 k/uL (150-450); RBC 5.17 m/uL (4.30-5.90); RDW 13.9 % (11.5-15.5); WBC 5.4 k/uL (3.8-10.6)
[2021-03-28 12:37] LABS: INR 0.9 (<1.2)
[2021-03-28 12:38] LABS: Partial Thromboplastin Time 23.1 sec (22.0-30.0); Prothrombin Time 9.7 sec (9.0-12.0)
[2021-03-28 12:51] LABS: ALT 39 U/L (4-49); African American GFR (CKD) >90 (>60 ml/min/1.73 sqM); Albumin 5.1 g/dL (3.5-5.0); Amylase 99 U/L (30-110); Anion Gap 12 mmol/L; Blood Urea Nitrogen 29 mg/dL (9-20); Calcium 9.6 mg/dL (8.4-10.2); Carbon Dioxide 22 mmol/L (22-30); Chloride 107 mmol/L (98-107); Creatine Kinase 427 U/L (55-170); Glucose 105 mg/dL (74-99); Lipase 68 U/L (23-300); Non-African American GFR(CKD) 88 (>60 ml/min/1.73 sqM); Sodium 141 mmol/L (137-145); Total Bilirubin 0.6 mg/dL (0.2-1.3); Total Protein 9.3 g/dL (6.3-8.2)
[2021-03-28 13:07] LABS: AST 56 U/L (17-59); Alkaline Phosphatase 121 U/L (38-126)
--- NOTE | 2021-03-28 13:15 | CT ---
EXAMINATION TYPE: CT abdomen pelvis wo con DATE OF EXAM: 03/28/2021 COMPARISON: 12/02/2020 HISTORY: Pain CT DLP: 655.6 mGycm Automated exposure control for dose reduction was used. TECHNIQUE: Helical acquisition of images was performed from the lung bases through the pelvis. FINDINGS: Lack of contrast significantly limits the exam. LUNG BASES: No significant abnormality is appreciated. LIVER/GB: No significant abnormality is appreciated. PANCREAS: No significant abnormality is seen. SPLEEN: No significant abnormality is seen. ADRENALS: No significant abnormality is seen. KIDNEYS: No significant abnormality is seen. ADENOPATHY: None visualized. OSSEOUS STRUCTURES: Postsurgical change involving the lumbar spine with multilevel severe degenerati ve disc disease. Unfortunately there is significant artifact which limits exam from the metallic hard mixon extending anteriorly into the abdomen.. BOWEL: Grossly the bowel gas pattern is nonspecific. Stomach is nondistended and limited. OTHER: Atherosclerotic change of the vasculature. IMPRESSION: 1. Limited exam demonstrates no definite acute process.
[2021-03-28] MEDS ORDERED: MORPHINE SULFATE 4 MG/ML SYRINGE IVP STA ×2 (13:23→14:11)
[2021-03-28 13:45] LABS: Appearance,Urine Clear (Clear); Bilirubin,Urine Negative (Negative); Blood,Urine Negative (Negative); Color,Urine Yellow; Glucose,Urine (UA) Negative (Negative); Ketones,Urine Negative (Negative); Leukocyte Esterase,Urine Negative (Negative); Nitrite,Urine Negative (Negative); Protein,Urine Negative (Negative); Specific Gravity,Urine 1.023 (1.001-1.035); Urobilinogen,Urine <2.0 mg/dL (<2.0)
[2021-03-28] MEDS ORDERED: LORazepam 2 MG/ML INJ IV STA (13:55)
[2021-03-28 14:48] VITALS: BP 114/67; PULSE 74; RESP 18; TEMP 98.1
== END 2021-03-28 14:48 | disposition home or self-care (01) ==
LOC: EC 11:39
DX: R10.9 Unspecified abdominal pain (principal); K21.9 Gastro-esophageal reflux disease without esophagitis; I10 Essential (primary) hypertension; M19.90 Unspecified osteoarthritis, unspecified site; Z90.49 Acquired absence of other specified parts of digestive tract
CPT/HCPCS: 36415; 80053; 82150; 82550; 83605; 83690; 84484; 85025; 85610; 85730; 81003; 74176; 99284; 96374; 96375 ×4; 96376; 96361 ×2; J2060; J2270; J1170; J1200; J2405

== ENCOUNTER 2021-03-31 10:06 | Observation (INO) | payer OTHER ==
[2021-03-31] MEDS ORDERED: SODIUM CHLORIDE 0.9% 1,000 ML IV STA (10:21)
[2021-03-31] MEDS ORDERED: LORazepam 2 MG/ML INJ IV STA (10:22)
[2021-03-31] MEDS ORDERED: HYDROmorphone 1 MG/ML 1 ML SYRINGE IVP STA (10:22)
[2021-03-31] MEDS ORDERED: ONDANSETRON 4 MG/2 ML VIAL IVP STA (10:22)
[2021-03-31] MEDS ORDERED: diphenhydrAMINE 50 MG/ML 1 ML VIAL IVP STA (10:22)
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
[2021-03-31 10:50] LABS: Basophils % (A) 1 %; Eosinophils # (A) 0.2 k/uL (0-0.7); Eosinophils % (A) 4 %; HCT 42.5 % (39.0-53.0); HGB 14.3 gm/dL (13.0-17.5); Lymphocytes # (A) 1.3 k/uL (1.0-4.8); Lymphocytes % (A) 25 %; MCH 28.9 pg (25.0-35.0); MCHC 33.5 g/dL (31.0-37.0); Mean Platelet Volume 7.4; Monocytes # (A) 0.4 k/uL (0-1.0); Monocytes % (A) 8 %; Neutrophils # (A) 3.1 k/uL (1.3-7.7); Neutrophils % (A) 59 %; Platelet Count 204 k/uL (150-450); RBC 4.94 m/uL (4.30-5.90); RDW 13.7 % (11.5-15.5); WBC 5.2 k/uL (3.8-10.6)
[2021-03-31 11:02] LABS: Albumin 4.6 g/dL (3.5-5.0); Calcium 9.5 mg/dL (8.4-10.2); Potassium 4.3 mmol/L (3.5-5.1); Total Bilirubin 0.3 mg/dL (0.2-1.3); Total Protein 8.4 g/dL (6.3-8.2)
[2021-03-31 11:04] LABS: INR 0.9 (<1.2); Partial Thromboplastin Time 24.1 sec (22.0-30.0); Prothrombin Time 10.1 sec (9.0-12.0)
--- NOTE | 2021-03-31 11:46 | XR ---
EXAMINATION TYPE: XR KUB DATE OF EXAM: 03/31/2021 COMPARISON: 12/01/2020 HISTORY: Pain TECHNIQUE: One view abdominal series FINDINGS: The osseous structures are intact. The bowel gas pattern is nonspecific. Few air-fluid levels are se en in the abdomen. There is postsurgical change involving the lumbar spine. Hypertrophic change of th e hip joints noted correlate for femoral acetabular impingement. Vascular calcifications seen. IMPRESSION: 1. Multiple air-fluid levels correlate for ileus or enteritis. Partial obstruction not excluded.
[2021-03-31] MEDS ORDERED: traMADol 50 MG TAB PO PRN (13:01)
[2021-03-31] MEDS ORDERED: ACETAMINOPHEN TAB 325 MG TAB PO PRN (13:01)
[2021-03-31] MEDS ORDERED: NALOXONE 0.4 MG/ML 1 ML VIAL IV PRN (13:01)
[2021-03-31] MEDS ORDERED: MORPHINE SULFATE 4 MG/ML SYRINGE IVP STA (13:15)
[2021-03-31] MEDS: SODIUM CHLORIDE 0.9% 1,000 ML IV SCH ×2 (13:20→23:08)
[2021-03-31] MEDS: ONDANSETRON 4 MG/2 ML VIAL IVP PRN ×2 (13:28→16:44)
[2021-03-31 13:49] LABS: Amphetamine Screen,Urine Not Detected (NotDetected); Barbiturate Screen,Urine Not Detected (NotDetected); Benzodiazepines Screen,Urine Not Detected (NotDetected); Cocaine Screen,Urine Not Detected (NotDetected); Methadone Screen, Urine Not Detected (NotDetected); Opiate Screen,Urine Detected (NotDetected); Oxycodone Screen, Urine Not Detected (NotDetected); Phencyclidine Screen,Urine Not Detected (NotDetected); Tricyclic Antidepressant,Urine Not Detected (NotDetected); Urn Cannabinoid Scrn Detected (NotDetected)
[2021-03-31] MEDS ORDERED: oxyCODONE-APAP 10-325MG 1 EACH TAB PO PRN (14:05)
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
[2021-03-31] MEDS: HYDROmorphone 1 MG/ML 1 ML SYRINGE IVP PRN ×3 (14:31→20:50)
[2021-03-31 14:35] LABS: Appearance,Urine Clear (Clear); Bilirubin,Urine Negative (Negative); Blood,Urine Negative (Negative); Color,Urine Light Yellow; Glucose,Urine (UA) Negative (Negative); Ketones,Urine Negative (Negative); Leukocyte Esterase,Urine Negative (Negative); Nitrite,Urine Negative (Negative); Protein,Urine Negative (Negative); Specific Gravity,Urine 1.015 (1.001-1.035); Urobilinogen,Urine <2.0 mg/dL (<2.0)
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
[2021-03-31] MEDS: HEPARIN SODIUM,PORCINE/PF 5,000 UNIT/0.5 ML SYRINGE SQ SCH ×2 (16:44→23:07)
[2021-03-31] MEDS: MORPHINE SULFATE 4 MG/ML SYRINGE IVP PRN ×2 (16:44→22:23)
[2021-03-31] MEDS: BARIUM SULFATE 450 ML ORAL.SUSP BOTTLE PO PRN ×2 (16:49→19:45)
[2021-03-31] MEDS: PANTOPRAZOLE 40 MG/10 ML VIAL IVP SCH (21:11)
--- NOTE | 2021-03-31 21:26 | CT ---
EXAMINATION TYPE: CT abdomen pelvis wo con DATE OF EXAM: 03/31/2021 COMPARISON: 03/28/2021 HISTORY: Abdominal pain. CT DLP: 708.4 mGycm Automated exposure control for dose reduction was used. Images obtained from the mid heart to the floor the pelvis with oral contrast only. The lung bases are clear. There is no pleural effusion. Heart size is normal. There is no pericardial effusion. Liver shows no focal defect. Spleen is intact. The stomach is intact. The bile ducts are n ot dilated. There is no evidence of pancreatic mass. Gallbladder appears absent. There is no adrenal mass. Kidneys have normal size. There is no hydronephrosis. Ureters are not dilat ed. There is no retroperitoneal adenopathy. There is no evidence of a bowel obstruction. There is no free air. There is no ascites. Bladder distends smoothly. There is no inguinal hernia. There is no free fluid in the pelvis. There i s atherosclerotic vascular calcification. There is multilevel posterior lumbar spine fusion surgery. There is no mesenteric edema. I see no evidence of a bowel obstruction. There is oral contrast extend ing to the right colon. There is no lumbar compression fracture. There is multilevel lumbar spondylotic changes. The bony pel vis is intact. The hip joints are intact. I see no evidence of hip dysplasia. IMPRESSION: No acute abnormality in the abdomen pelvis. No adverse change compared to old exam.
[2021-04-01] MEDS: HYDROmorphone 1 MG/ML 1 ML SYRINGE IVP PRN ×4 (00:12→09:13)
[2021-04-01] MEDS: ONDANSETRON 4 MG/2 ML VIAL IVP PRN ×2 (01:04→09:13)
[2021-04-01] MEDS: MORPHINE SULFATE 4 MG/ML SYRINGE IVP PRN (04:09)
[2021-04-01] MEDS: PANTOPRAZOLE 40 MG/10 ML VIAL IVP SCH (07:53)
[2021-04-01] MEDS: HEPARIN SODIUM,PORCINE/PF 5,000 UNIT/0.5 ML SYRINGE SQ SCH (07:53)
[2021-04-01] MEDS ORDERED: amLODIPine 10 MG TAB PO SCH (09:00)
[2021-04-01 09:44] LABS: HGB 13.1 gm/dL (13.0-17.5); MCH 28.5 pg (25.0-35.0); MCHC 32.6 g/dL (31.0-37.0); MCV 87.4 fL (80.0-100.0); Mean Platelet Volume 8.2; Platelet Count 188 k/uL (150-450); RBC 4.58 m/uL (4.30-5.90); RDW 13.8 % (11.5-15.5); WBC 4.5 k/uL (3.8-10.6)
[2021-04-01 09:56] LABS: African American GFR (CKD) >90 (>60 ml/min/1.73 sqM); Anion Gap 7 mmol/L; Blood Urea Nitrogen 16 mg/dL (9-20); Calcium 8.8 mg/dL (8.4-10.2); Carbon Dioxide 28 mmol/L (22-30); Chloride 106 mmol/L (98-107); Glucose 100 mg/dL (74-99); Non-African American GFR(CKD) 89 (>60 ml/min/1.73 sqM); Potassium 3.8 mmol/L (3.5-5.1); Sodium 141 mmol/L (137-145)
[2021-04-01] MEDS ORDERED: HYDROmorphone 1 MG/ML 1 ML SYRINGE IVP PRN (10:48)
[2021-04-01] MEDS: SODIUM CHLORIDE 0.9% 1,000 ML IV SCH (13:02)
[2021-04-01] MEDS ORDERED: PROPOFOL 10 MG/ML 20 ML VIAL IV ONE (14:56)
[2021-04-01] MEDS ORDERED: LIDOCAINE 1% INJ 10MG/ML (20 ML MDV) ONE (14:56)
[2021-04-01] MEDS ORDERED: IV FLUID CONTINUATION 1,000 ML IV ONE (14:57)
--- NOTE | 2021-04-01 15:09 | P.OP ---
Date of Procedure: 04/01/21 Preoperative Diagnosis: Gastric abdominal pain Procedure(s) Performed: EGD Anesthesia: TIMI GRAY Surgeon: Anam Crandall Pathology: other (Antrum) Condition: stable Disposition: PACU Description of Procedure: The patient's placed on the endoscopy table in the lateral position. He received IV sedation. The gastroscope placed oropharynx past esophagus stomach. The scope was then placed through the pylorus. The first second portion duodenum appeared normal. The scope was brought back the antrum this appeared very minimal inflamed. A biopsies performed. Scope was retroflexed remainder stomach appeared normal. The GE junction was at 40 cm the distal esophagus was normal. The proximal esophagus was normal. Scope was withdrawn for patient.
--- NOTE | 2021-04-01 15:48 | P.DS ---
Providers Date of admission: 03/31/21 13:27 Attending physician: Isaías Iniguez Consults: 03/31/21 13:01 Consult Physician Urgent Consulting Provider: Anam Crandall Consult Reason/Comments: Intractable abdominal pain, possible ileus/obstruction Do you want consulting provider notified?: Yes Primary care physician: [facility] Course: Patient is 55-year-old male came in with complaints of sharp and squeezing right upper quadrant abdominal pain along with the severe epigastric abdominal pain. Patient the pain started today morning. Patient also complained of nausea vomiting and diarrhea all of which started today patient says he had 4 episodes of diarrhea. Patient denied any flulike symptoms. Patient had a KUB x-ray which showed multiple air-fluid levels. Patient was seen in the ER for same symptoms about 3 days ago. It appears patient had extensive evaluation in the past for this and let abdominal pain. Patient underwent multiple imaging studies and upper GI endo scopies. Patient was treated for esophagitis and gastritis in the past patient was diagnosed with diffuse esophageal spasm at one point of time and was even evaluated at [facility]. Patient is also on opiates for pain and urine drug screen is positive for marijuana. 04/01/2021 Patient is still complaining of abdominal pain but all the workup is negative patient had a CT of the abdomen which did not show any significant abnormality patient underwent upper GI endoscopy which was also within normal limits. Patient may or may not have had gastroenteritis. Patient will be started on full liquid or soft diet and if can tolerate patient will be discharged to follow up with primary care physician as an outpatient. PHYSICAL EXAMINATION: GENERAL: The patient is alert and oriented x3, not in any acute distress. Well developed, well nourished. HEENT: Pupils are round and equally reacting to light. EOMI. No scleral icterus. No conjunctival pallor. Normocephalic, atraumatic. No pharyngeal erythema. No thyromegaly. CARDIOVASCULAR: S1 and S2 present. No murmurs, rubs, or gallops. PULMONARY: Chest is clear to auscultation, no wheezing or crackles. ABDOMEN: Soft, nontender, nondistended, normoactive bowel sounds. No palpable organomegaly. MUSCULOSKELETAL: No joint swelling or deformity. EXTREMITIES: No cyanosis, clubbing, or pedal edema. NEUROLOGICAL: Gross neurological examination did not reveal any focal deficits. SKIN: No rashes. Assessment and Plan Plan: -Abdominal pain: Possibly ofgastroenteritis had workup as mentioned above -Acute renal failure related azotemia which improved with IV fluids -Gastroesophageal reflux disease -Hypertension Patient Condition at Discharge: Stable Plan - Discharge Summary Discharge Rx Participant: No New Discharge Prescriptions: New Famotidine [Pepcid] 20 mg PO BID #10 tablet Discontinued Hydrocodone/Acetaminophen [[place] 7.5-325] 1 tab PO TID PRN PRN Reason: Pain No Action amLODIPine [Norvasc] 10 mg PO DAILY oxyCODONE-APAP 10-325MG [Percocet 10-325 mg] 1 tab PO Q8H PRN PRN Reason: Pain Amoxicillin 500mg Tablet 500 mg PO TID Discharge Medication List amLODIPine [Norvasc] 10 mg PO DAILY 12/01/20 [History] Amoxicillin 500mg Tablet 500 mg PO TID 03/28/21 [History] oxyCODONE-APAP 10-325MG [Percocet 10-325 mg] 1 tab PO Q8H PRN 03/28/21 [History] Famotidine [Pepcid] 20 mg PO BID #10 tablet 04/01/21 [Rx] Follow up Appointment(s)/Referral(s): Donald Augustin DO [Primary Care Provider] - 1-2 days
[2021-04-01 15:57] VITALS: RESP 16; TEMP 97.8
[2021-04-01 18:26] VITALS: BP 119/65; PULSE 68
== END 2021-04-01 18:24 | disposition home or self-care (01) ==
LOC: EC 10:06 → 6NMEDSUR 12:57 → INTOOBSV 13:27 → OBSVTOIN 13:27 → 4SSUR 13:32 → UNDODISIN 04-01 18:24
PROVIDERS: ADMIT Internal Medicine; ATTEND Internal Medicine
DX: R10.13 Epigastric pain (principal); N17.9 Acute kidney failure, unspecified; R10.11 Right upper quadrant pain; I10 Essential (primary) hypertension; K21.9 Gastro-esophageal reflux disease without esophagitis; K29.50 Unspecified chronic gastritis without bleeding; M19.90 Unspecified osteoarthritis, unspecified site; M48.00 Spinal stenosis, site unspecified; R19.7 Diarrhea, unspecified; K22.4 Dyskinesia of esophagus; G89.29 Other chronic pain; M54.9 Dorsalgia, unspecified; K44.9 Diaphragmatic hernia without obstruction or gangrene; K59.00 Constipation, unspecified; E66.9 Obesity, unspecified; Z68.30 Body mass index [BMI] 30.0-30.9, adult; Z20.822 Contact with and (suspected) exposure to COVID-19; Z79.899 Other long term (current) drug therapy; Z91.041 Radiographic dye allergy status; Z91.013 Allergy to seafood; Z91.048 Other nonmedicinal substance allergy status; Z98.1 Arthrodesis status; Z87.828 Personal history of other (healed) physical injury and trauma; Z87.19 Personal history of other diseases of the digestive system; Z87.891 Personal history of nicotine dependence; Z90.49 Acquired absence of other specified parts of digestive tract; Z82.61 Family history of arthritis; Z82.49 Family history of ischemic heart disease and other diseases of the circulatory system; Z84.89 Family history of other specified conditions
CPT/HCPCS: 96376 ×3; 96361 ×3; 96372 ×2; 96375 ×2; 96374; 99285; 36415; 88305; 80053; 80048; 82150; 83605; 83690; 85025; 85027; 85610; 85730; 81003; 80306; 87635; 74018; 74176; 43239; G0378 ×3; G0480; J2060; J2270 ×2; J1200; J2405 ×2; J2001; J1170 ×2; J2704; C9113 ×2; J1644 ×2; 80320

== ENCOUNTER 2022-08-12 19:38 | Inpatient (IN) | payer OTHER ==
[2022-08-12] MEDS ORDERED: HYDROmorphone 1 MG/ML 1 ML SYRINGE IVP STA ×2 (19:58→20:38)
[2022-08-12] MEDS ORDERED: SODIUM CHLORIDE 0.9% 1,000 ML IV STA (19:58)
[2022-08-12] MEDS ORDERED: ONDANSETRON 4 MG/2 ML VIAL IVP STA (19:58)
[2022-08-12] MEDS ORDERED: FAMOTIDINE 20 MG/2 ML VIAL IV STA (19:59)
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
[2022-08-12 20:30] LABS: Albumin 4.2 g/dL (3.5-5.0); Calcium 9.1 mg/dL (8.4-10.2); Total Bilirubin 0.4 mg/dL (0.2-1.3); Total Protein 7.5 g/dL (6.3-8.2)
[2022-08-12 20:52] LABS: HCT 38.6 % (39.0-53.0); HGB 12.6 gm/dL (13.0-17.5); MCH 27.8 pg (25.0-35.0); MCHC 32.6 g/dL (31.0-37.0); MCV 85.2 fL (80.0-100.0); Mean Platelet Volume 8.5; Platelet Count 172 k/uL (150-450); RBC 4.53 m/uL (4.30-5.90); RDW 14.4 % (11.5-15.5); WBC 3.5 k/uL (3.8-10.6)
--- NOTE | 2022-08-12 20:56 | CT ---
EXAMINATION TYPE: CT abdomen pelvis wo con DATE OF EXAM: 08/12/2022 COMPARISON: 03/31/2021 HISTORY: Severe acute abdomen pain CT DLP: 1124.4 mGycm Automated exposure control for dose reduction was used. Images obtained from the diaphragm to the floor the pelvis with no contrast. Lung bases are clear. No pleural effusion heart size is normal. No pericardial effusion. Liver spleen and stomach pancreas appear intact. The bile ducts are not dilated. Gallbladder is not s een. There is no adrenal mass. Kidneys have normal size. No hydronephrosis. Ureters are not dilated. No re troperitoneal adenopathy. Bladder distends smoothly. No inguinal hernia. No free fluid in the pelvis. No pelvic mass. There are some distended fluid-filled small bowel loops with fluid levels. Small bowel dilated up to 3.3 cm. Large bowel pattern is fairly normal. There is no ascites or free air. No mesenteric edema. Appendix not seen. The lumbar vertebrae have no rmal alignment. There is posterior fusion surgery from L2 to L5. Bony pelvis is intact. Sacroiliac j oints are intact. There is vascular calcification and there is hypertrophic spurring of the hip joint s. IMPRESSION: There is evidence for some small bowel ileus. I do not suspect a mechanical bowel obstruction. No angle e air. Small bowel increased slightly compared to old exam
[2022-08-12] MEDS ORDERED: NALOXONE 0.4 MG/ML 1 ML VIAL IV PRN (21:31)
[2022-08-12] MEDS ORDERED: HYDROmorphone 0.5 MG/0.5 ML SYRINGE IVP PRN (21:31)
[2022-08-12] MEDS: HYDROmorphone 1 MG/ML 1 ML SYRINGE IVP PRN (22:06)
[2022-08-12 22:15] LABS: Band Neutrophils % 2 %; Lymphocytes # (M) 1.16 k/uL (1.0-4.8); Monocytes # (M) 1.72 k/uL (0-1.0); Neutrophils % (M) 16 %; Nucleated Red Blood Cells 0 /100 WBC (0-0); Total Cells Counted 100
[2022-08-12 22:21] LABS: Target Cells Present
[2022-08-12] MEDS: SODIUM CHLORIDE 0.9% 1,000 ML IV SCH (23:11)
[2022-08-12] MEDS: ONDANSETRON 4 MG/2 ML VIAL IVP PRN (23:12)
[2022-08-13] MEDS: HYDROmorphone 1 MG/ML 1 ML SYRINGE IVP PRN ×6 (00:48→23:02)
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
[2022-08-13] MEDS: SIMETHICONE 80 MG CHEWABLE PO SCH ×4 (02:14→21:00)
[2022-08-13] MEDS: ONDANSETRON 4 MG/2 ML VIAL IVP PRN ×3 (03:47→20:02)
[2022-08-13] MEDS: HEPARIN SODIUM,PORCINE/PF 5,000 UNIT/0.5 ML SYRINGE SQ SCH ×2 (07:19→16:02)
[2022-08-13] MEDS: PANTOPRAZOLE 40 MG/10 ML VIAL IV SCH (07:19)
[2022-08-13] MEDS: SODIUM CHLORIDE 0.9% 1,000 ML IV SCH ×3 (07:20→21:11)
[2022-08-13 09:40] LABS: African American GFR (CKD) 92.6 (60.0-200.0); Anion Gap 9.8 mmol/L (10.00-18.00); BUN/Creat Ratio 19.23 Ratio (12.00-20.00); Calcium 8.2 mg/dL (8.7-10.3); Carbon Dioxide 24.2 mmol/L (20.0-27.5); Non-African American GFR(CKD) 79.9 (60.0-200.0); Potassium 3.9 mmol/L (3.5-5.5)
--- NOTE | 2022-08-13 10:42 | P.PN ---
Subjective Progress Note Date: 08/13/22 Principal diagnosis: abdominal pain Hospital Course: 57-year-old male with history of chronic pain, back surgery on narcotic therapy presenting with severe right-sided abdominal pain. He is being admitted for nonobstructive ileus and mild tracheitis. Surgery consult, recommendation pending. Subjective: Patient seen and examined at bedside. No acute events overnight. He continues to complain about severe right-sided abdominal pain. He denies passing gas or having any bowel movements. He continues to have some nausea, no vomiting. He denies any chest pain, shortness of breath, palpitations, or urinary complaints. Pertinent positives and negatives as discussed above, a complete review of systems was performed and all other systems are negative. Vitals Signs Reviewed. General: nontoxic, no distress, appears at stated age Derm: warm, dry Head: atraumatic, normocephalic, symmetric Eyes: EOMI, no lid lag, anicteric sclera Mouth: no lip lesion, mucus membranes moist Cardiovascular: S1S2 reg, no murmur Lungs: CTA bilateral, no rhonchi, no rales , no accessory muscle use Abdominal: soft, tenderness to palpation throughout the right abdomen and epigastric region, guarding present, no rebound tenderness, no appreciable organomegaly Ext: no gross muscle atrophy, no edema, no contractures Neuro: CN II-XI grossly intact, no focal neuro deficits Psych: Alert, oriented, appropriate affect Assessment and Plan: Ileus -Supportive care -IV fluids, pain control -Started on clear liquid diet -Zofran for nausea -PPI -CT abdomen -small bowel ileus, mechanical bowel obstruction not suspected -Surgery consult, recommendations pending Mild EL - resolved -Likely prerenal -Continue IV fluids -Monitor renal function and urine output F: NS 130 cc/hr E: replete as needed N: clear liquids A: as tolerated DVT ppx: heparin sq Code status: Full code Anticipated discharge place: home Anticipated discharge time: likely tomorrow Objective - Vital Signs Vital signs: Vital Signs Temp 98.1 F 08/12/22 23:29 Pulse 64 08/13/22 07:44 Resp 16 08/12/22 23:29 BP 148/70 08/13/22 07:44 Pulse Ox 98 08/12/22 23:29 FiO2 Intake & Output 08/12/22 08/13/22 08/13/22 18:59 06:59 18:59 Intake Total 485 Output Total 600 400 Balance -115 -400 Weight 113.398 kg Intake: Oral 485 Output: Urine 600 400 Other: # Voids 3 # Bowel Movements 0 - Labs CBC & Chem 7: 08/12/22 20:05 08/13/22 05:28 Labs: Abnormal Lab Results - Last 24 Hours (Table) 08/12/22 08/12/22 08/13/22 Range/Units 20:05 20:05 05:28 WBC 3.5 L (3.8-10.6) k/uL Hgb 12.6 L (13.0-17.5) gm/dL Hct 38.6 L (39.0-53.0) % Neutrophils # (Manual) 0.60 L (1.3-7.7) k/uL Monocytes # (Manual) 1.72 H (0-1.0) k/uL Sodium 135 L (137-145) mmol/L Carbon Dioxide 19 L (22-30) mmol/L Anion Gap 9.80 L (10.00-18.00) mmol/L BUN 29 H (9-20) mg/dL Creatinine 1.35 H (0.66-1.25) mg/dL Calcium 8.2 L (8.7-10.3) mg/dL
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
[2022-08-13] MEDS ORDERED: HYOSCYAMINE ORAL DROPS 1.875 MG/15 ML BOTTLE PO PRN (14:44)
[2022-08-13] MEDS ORDERED: SODIUM CHLORIDE 0.9% 1,000 ML IV ONE (14:45)
[2022-08-13] MEDS ORDERED: METOCLOPRAMIDE 5 MG/ML 2 ML VIAL IVP SCH (15:00)
[2022-08-13] MEDS ORDERED: LORazepam 1 MG/0.5 ML VIAL IV STA (16:47)
[2022-08-13] MEDS ORDERED: LORazepam 1 MG/0.5 ML VIAL ONE (16:49)
[2022-08-13] MEDS: IMIPRAMINE 25 MG TAB PO SCH (20:59)
[2022-08-13] MEDS: traZODone HCL 100 MG TAB PO SCH (21:08)
[2022-08-13] MEDS: PROPRANOLOL 10 MG TAB PO SCH (21:08)
[2022-08-14] MEDS: HYDROmorphone 1 MG/ML 1 ML SYRINGE IVP PRN ×7 (03:10→22:18)
[2022-08-14] MEDS: ONDANSETRON 4 MG/2 ML VIAL IVP PRN ×3 (03:10→19:25)
[2022-08-14] MEDS: SODIUM CHLORIDE 0.9% 1,000 ML IV SCH ×3 (03:21→19:27)
[2022-08-14 05:40] LABS: Partial Thromboplastin Time 26.6 sec (22.0-30.0)
[2022-08-14] MEDS: HEPARIN SODIUM,PORCINE/PF 5,000 UNIT/0.5 ML SYRINGE SQ SCH ×5 (07:06→23:50)
[2022-08-14] MEDS: IMIPRAMINE 25 MG TAB PO SCH ×2 (09:42→22:27)
[2022-08-14] MEDS: PANTOPRAZOLE 40 MG/10 ML VIAL IV SCH (09:43)
[2022-08-14] MEDS: SIMETHICONE 80 MG CHEWABLE PO SCH ×3 (09:44→22:23)
[2022-08-14] MEDS: PROPRANOLOL 10 MG TAB PO SCH ×2 (10:15→22:19)
--- NOTE | 2022-08-14 11:53 | P.PN ---
Subjective Progress Note Date: 08/14/22 Patient seen and examined. No acute events overnight. Patient continues to report abdominal pain, 10 out of 10 in severity. Pain is in the right upper quadrant and radiates epigastric area. He reports nausea but no vomiting. Basically nothing by mouth at this time. No bowel movements or passing gas. General: nontoxic, no distress, appears at stated age Derm: warm, dry Head: atraumatic, normocephalic, symmetric Eyes: EOMI, no lid lag, anicteric sclera Mouth: no lip lesion, mucus membranes moist Cardiovascular: S1S2 reg, no murmur Lungs: CTA bilateral, no rhonchi, no rales , no accessory muscle use Abdominal: soft, tenderness to palpation throughout the right abdomen and epigastric region, guarding present, no rebound tenderness, no appreciable organomegaly Ext: no gross muscle atrophy, no edema, no contractures Neuro: no focal neuro deficits Psych: Alert, oriented, appropriate affect #Ileus #Akathisia #Normocytic anemia with leukopenia #Obesity Resolved: Acute kidney injury, metabolic acidosis Pain management with Dilaudid. Continue normal saline at 130 mL per hour. Hycosamine drops for abdominal distention. Started on imipramine. Clear liquid diet and advance as tolerated. Avoid Reglan due to side effect of akathisia. No signs of acute bleed. Continue to monitor. Patient would benefit from a structured weight loss program. DVT prophylaxis: [Heparin] Discussed with: [Patient] Anticipated discharge: [2-3 days] Anticipated discharge place: [Home] A total of [20] minutes was spent on the care of this complex patient more than 50% of the time was spent in counseling and care coordination. Objective - Vital Signs Vital signs: Vital Signs Temp 98.3 F 08/14/22 11:12 Pulse 50 L 08/14/22 11:12 Resp 16 08/14/22 11:12 BP 125/78 08/14/22 11:12 Pulse Ox 99 08/14/22 11:12 FiO2 Intake & Output 08/13/22 08/14/22 08/14/22 18:59 06:59 18:59 Intake Total 240 1245 Output Total 1600 1500 700 Balance -1360 -255 -700 Intake: IV 910 Sodium Chloride 0.9% 1, 910 000 ml @ 130 mls/hr IV . Q7H42M [facility] Rx#:[id number] Oral 240 335 Output: Urine 1600 1500 700 Other: Voiding Method Toilet Toilet # Voids 3 4 # Bowel Movements 0 - Labs CBC & Chem 7: 08/12/22 20:05 08/13/22 05:28
--- NOTE | 2022-08-14 13:57 | P.PN ---
Subjective Progress Note Date: 08/14/22 CHIEF COMPLAINT: Abdominal pain HISTORY OF PRESENT ILLNESS: The patient is a 57-year-old gentleman with chronic abdominal pain over 5-10 years including esophageal dysmotility who was admitted for severe right upper quadrant pain and ileus. He was placed on medications for motility agent however developed acute psychosis due to metoclopramide/Reglan which is now an ALLERGY. He reports mild improvement of abdominal pain. She is willing for trial of soft diet. REVIEW OF ORGAN SYSTEMS: No fevers or chills. Had acute psychosis due to Reglan. PHYSICAL EXAM: VITALS: Reviewed CONSTITUTIONAL: Well developed and in no acute distress. EYES: Conjuctivae without sclera icterus. Extraocular movements grossly intact. HEAD, EARS, NOSE, THROAT: Moist buccal mucosa. Head is atraumatic, normocephalic . Hears conversational speech. No nasal drainage. RESPIRATORY: Non-labored respirations and equal bilateral excursions. No gross wheezes. CARDIOVASCULAR: Palpable 2+ radial pulses. ABDOMEN: No peritonitis. Tender right upper quadrant, improving MUSCULOSKELETAL: No clubbing cyanosis. SKIN: Warm and well perfused with good skin turgor. NEUROLOGIC: Cranial nerves II through XII grossly intact. No focal or lateralizing signs. PSYCH: Appropriate affect. Alert and oriented to person, place and time. Displays appropriate insight. CLINCAL LABS: Reviewed. ASSESSMENT: 1. Ileus with right-sided abdominal pain 2. 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 May start trial of soft food diet. 2. Avoid Reglan. 3. Continue IV fluid hydration Objective - Vital Signs Vital signs: Vital Signs Temp 98.3 F 08/14/22 11:12 Pulse 50 L 08/14/22 11:12 Resp 16 08/14/22 11:12 BP 125/78 08/14/22 11:12 Pulse Ox 99 08/14/22 11:12 FiO2 Intake & Output 08/13/22 08/14/22 08/14/22 18:59 06:59 18:59 Intake Total 240 1245 Output Total 1600 1500 700 Balance -8114 -167 -551 Intake: IV 910 Sodium Chloride 0.9% 1, 910 000 ml @ 130 mls/hr IV . Q7H42M [facility] Rx#:[id number] Oral 240 335 Output: Urine 1600 1500 700 Other: Voiding Method Toilet Toilet # Voids 3 4 # Bowel Movements 0 - Labs CBC & Chem 7: 08/12/22 20:05 08/13/22 05:28
[2022-08-14] MEDS: traZODone HCL 100 MG TAB PO SCH (22:27)
[2022-08-15] MEDS: HYDROmorphone 1 MG/ML 1 ML SYRINGE IVP PRN ×4 (01:35→10:39)
[2022-08-15] MEDS: SODIUM CHLORIDE 0.9% 1,000 ML IV SCH ×3 (01:37→17:35)
[2022-08-15] MEDS: ONDANSETRON 4 MG/2 ML VIAL IVP PRN ×2 (04:46→11:40)
[2022-08-15] MEDS: KETOROLAC 15 MG/ML 1 ML VIAL IVP SCH ×3 (07:29→18:27)
[2022-08-15] MEDS: PANTOPRAZOLE 40 MG/10 ML VIAL IV SCH (07:29)
[2022-08-15] MEDS: SIMETHICONE 80 MG CHEWABLE PO SCH ×3 (07:31→22:00)
[2022-08-15] MEDS: IMIPRAMINE 25 MG TAB PO SCH ×2 (07:31→20:09)
[2022-08-15] MEDS: HEPARIN SODIUM,PORCINE/PF 5,000 UNIT/0.5 ML SYRINGE SQ SCH ×3 (07:31→22:08)
[2022-08-15] MEDS: PROPRANOLOL 10 MG TAB PO SCH ×2 (07:32→22:00)
--- NOTE | 2022-08-15 07:55 | XR ---
EXAMINATION TYPE: XR abdomen 2V DATE OF EXAM: 08/15/2022 7:28 AM INDICATION: Patient age:Male; 57 years old; Reason for study: ileus abdominal pain; COMPARISON: CT abdomen pelvis 08/12/2022. TECHNIQUE: Two views of the abdomen were obtained. FINDINGS: Post surgical changes to the spine. There is moderate stool burden throughout the colon. Th e bowel gas pattern is nonspecific without dilated loops of small or large bowel. There is no evidenc e for organomegaly or pneumoperitoneum. The osseous structures are intact. No abnormal calcificatio ns are present. Fecal material and gas are demonstrated throughout the colon and rectum. IMPRESSION: 1. Nonspecific bowel gas pattern without radiographic evidence for acute process. 2. Moderate stool burden.
[2022-08-15] MEDS ORDERED: LACTULOSE 20 GM/30 ML CUP PO ONE (09:33)
[2022-08-15] MEDS ORDERED: MAGNESIUM HYDROXIDE 2,400 MG/10 ML CUP PO ONE (11:00)
[2022-08-15] MEDS ORDERED: MINERAL OIL 133 ML ENEMA RECTAL STA (14:45)
--- NOTE | 2022-08-15 14:54 | P.PN ---
Subjective Progress Note Date: 08/15/22 Patient is complaining of pain especially in his epigastric area He has tenderness to palpate as to light palpation in all quadrants Patient says that he still not had a bowel movement I discussed with the patient that we need to stop his Dilaudid as it is likely causing his constipation Objective - Vital Signs Vital signs: Vital Signs Temp 98 F 08/15/22 11:15 Pulse 47 L 08/15/22 11:15 Resp 18 08/15/22 11:15 BP 164/90 08/15/22 11:15 Pulse Ox 99 08/15/22 11:15 FiO2 Intake & Output 08/14/22 08/15/22 08/15/22 18:59 06:59 18:59 Output Total 1100 500 Balance -1100 -500 Output: Urine 1100 500 Other: Voiding Method Toilet Urinal # Voids 1 - Exam General examination - Alert and Oriented 3 in NAD Heart - + S1S2 no murmurs Lungs - Clear to auscultation Abdomen soft diffuse tenderness to palpate with light palpation ND +ve BS Extremities - No edema INSPECTOR AND CLERK - Moving all 4 extremities spontaneously Psych - Calm and cooperative - Labs CBC & Chem 7: 08/12/22 20:05 08/13/22 05:28 Assessment and Plan Assessment: Ileus X-ray from this morning does not show any sign of obstruction However it does show moderate stool burden Patient will give be given lactulose magnesium citrate and enema When I saw the patient he states that he has still not had a bowel movement. Opioids likely also contributing to his constipation so we'll discontinue Dilaudid IV Toradol only for pain Patient also on Hycosamine drops and imipramine Avoid Reglan due to side effect of akathisia Encourage ambulation Akathisia Avoid medication that caused tardive dyskinesia Normocytic anemia with leukopenia No overt signs of bleeding Continue to monitor CBC Obesity Patient counseled on weight loss Acute kidney injury with metabolic acidosis Resolved DVT prophylaxis: Subcu heparin
--- NOTE | 2022-08-15 15:29 | P.PN ---
Subjective Progress Note Date: 08/15/22 CHIEF COMPLAINT: Abdominal pain HISTORY OF PRESENT ILLNESS: The patient is a 57-year-old gentleman with chronic abdominal pain over 5-10 years including esophageal dysmotility who was admitted for severe right upper quadrant pain and ileus. Patient does report some improvement in his abdominal pain compared to yesterday. He has had some flatus yesterday. No bowel movement. Abdominal x-ray nonspecific bowel gas pattern with no acute process. Moderate stool burden. Afebrile. WBC is 3.5 Hgb 12.6 p latelets 172 INR 1.0 sodium 141 potassium 3.9 creatinine is down from 1.35-1.0 noted that medicine service has ordered a Fleet enema PHYSICAL EXAM: VITAL SIGNS: Reviewed GENERAL: Well-developed in no acute distress. HEENT: No sclera icterus. Extraocular movements grossly intact. Moist buccal mucosa. Head is atraumatic, normocephalic. Hears conversational speech. No nasal drainage. NECK: Supple without lymphadenopathy. CHEST: Non-labored respirations and equal bilateral excursions. CARDIOVASCULAR: Palpable 2+ radial pulses. ABDOMEN: Soft. Nondistended. Mild diffuse tenderness MUSCULOSKELETAL: No clubbing or cyanosis. NEUROLOGIC: No focal or lateralizing signs. Cranial nerves II through XII grossly intact. PSYCH: Appropriate affect. Alert and oriented to person, place and time. SKIN: Well perfused. Good skin turgor. ASSESSMENT: 1. Ileus with right-sided abdominal pain 2. Chronic pain syndrome 3. 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 Constipation PLAN: -Milk of magnesia and lactulose given for stool Bordon noted on abdominal x-ray -Continue IV fluids -Advance diet to dysphagia ground diet -Encourage patient to ambulate Physician [employer] Operator Insulation note has been reviewed by physician. Signing provider agrees with the documented findings, assessment, and plan of care. CHIEF COMPLAINT: Abdominal pain HISTORY OF PRESENT ILLNESS: The patient is a 57-year-old gentleman with chronic abdominal pain due to esophageal dysmotility. He reports worsening epigastric and right lower quadrant abdominal pain after enema administered per orders hospitalist. Patient had been advanced to soft diet. REVIEW OF ORGAN SYSTEMS: No fevers or chills. No bowel movement. PHYSICAL EXAM: VITALS: Reviewed CONSTITUTIONAL: Well developed and in no acute distress. EYES: Conjuctivae without sclera icterus. Extraocular movements grossly intact. HEAD, EARS, NOSE, THROAT: Moist buccal mucosa. Head is atraumatic, normocephalic. Hears conversational speech. No nasal drainage. RESPIRATORY: Non-labored respirations and equal bilateral excursions. No gross wheezes. CARDIOVASCULAR: Palpable 2+ radial pulses. ABDOMEN: Tender epigastrium. MUSCULOSKELETAL: No clubbing cyanosis. SKIN: Warm and well perfused with good skin turgor. NEUROLOGIC: Cranial nerves II through XII grossly intact. No focal or lateralizing signs. PSYCH: Appropriate affect. Alert and oriented to person, place and time. Displays appropriate insight. CLINCAL LABS: Reviewed. No new labs STUDIES: Abdominal x-ray ordered and reviewed demonstrating stool within the descending colon. Nonobstructive bowel gas pattern. This is my independent interpretation. ASSESSMENT: 1. Ileus with right-sided abdominal pain 2. Chronic pain syndrome 3. 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 Constipation 5. Esophageal dysmotility, jackhammer esophagus PLAN: 1. Lactulose and milk of magnesia prescribed for constipation. Avoid enemas due to abdominal pain 2. Ativan and GI cocktail ordered for epigastric pain as reports burning of the epigastrium Objective - Vital Signs Vital signs: Vital Signs Temp 98 F 08/15/22 11:15 Pulse 47 L 08/15/22 11:15 Resp 18 08/15/22 11:15 BP 164/90 08/15/22 11:15 Pulse Ox 99 08/15/22 11:15 FiO2 Intake & Output 08/14/22 08/15/22 08/15/22 18:59 06:59 18:59 Output Total 1100 500 Balance -1100 -500 Output: Urine 1100 500 Other: Voiding Method Toilet Urinal # Voids 1 - Labs CBC & Chem 7: 08/12/22 20:05 08/13/22 05:28
[2022-08-15] MEDS ORDERED: MAG HYDROX/AL HYDROX/SIMETH 30 ML, HYOSCYAMINE ELIXIR 10 ML, LIDOCAINE VISCOUS 2% 10 ML PO ONE ×3 (18:53)
[2022-08-15] MEDS ORDERED: AL HYDROX PO ONE ×2 (19:30)
[2022-08-15] MEDS ORDERED: [UNRECOGNIZED DRUG - OTHER] PO ONE ×2 (19:30)
[2022-08-15] MEDS ORDERED: MAG HYDROX PO ONE ×2 (19:30)
[2022-08-15] MEDS ORDERED: HYOSCYAMINE SULFATE 0.125 MG TAB ONE (20:08)
[2022-08-15] MEDS: HYOSCYAMINE SULFATE 0.125 MG TAB PO SCH (20:08)
[2022-08-15] MEDS: traZODone HCL 100 MG TAB PO SCH (21:59)
[2022-08-15] MEDS: LORazepam 1 MG/0.5 ML VIAL IV PRN (22:09)
[2022-08-16] MEDS ORDERED: HYOSCYAMINE ORAL DROPS 1.875 MG/15 ML BOTTLE PO SCH
[2022-08-16] MEDS: SODIUM CHLORIDE 0.9% 1,000 ML IV SCH ×3 (00:05→21:59)
[2022-08-16] MEDS: KETOROLAC 15 MG/ML 1 ML VIAL IVP SCH ×4 (00:06→19:40)
[2022-08-16] MEDS: HYOSCYAMINE SULFATE 0.125 MG TAB PO SCH ×5 (00:09→17:25)
[2022-08-16 06:15] LABS: African American GFR (CKD) 82 (>60 ml/min/1.73 sqM); Anion Gap 8 mmol/L; Blood Urea Nitrogen 18 mg/dL (9-20); Carbon Dioxide 26 mmol/L (22-30); Chloride 105 mmol/L (98-107); Glucose 82 mg/dL (74-99); Non-African American GFR(CKD) 71 (>60 ml/min/1.73 sqM); Potassium 3.7 mmol/L (3.5-5.1); Sodium 139 mmol/L (137-145)
[2022-08-16 06:23] LABS: HCT 40.5 % (39.0-53.0); HGB 12.9 gm/dL (13.0-17.5); Hypochromasia Slight; MCH 27.9 pg (25.0-35.0); MCHC 31.7 g/dL (31.0-37.0); MCV 87.8 fL (80.0-100.0); Mean Platelet Volume 8.5; Platelet Count 156 k/uL (150-450); RBC 4.61 m/uL (4.30-5.90); RDW 14.1 % (11.5-15.5); WBC 3.3 k/uL (3.8-10.6)
[2022-08-16 07:07] LABS: Eosinophils # (M) 0.03 k/uL (0-0.7); Lymphocytes # (M) 1.42 k/uL (1.0-4.8); Monocytes # (M) 0.63 k/uL (0-1.0); Neutrophils # (M) 1.22 k/uL (1.3-7.7); Neutrophils % (M) 37 %; Nucleated Red Blood Cells 0 /100 WBC (0-0); Total Cells Counted 100
[2022-08-16 07:08] LABS: Large Platelets Present
--- NOTE | 2022-08-16 07:41 | P.HPADDEND ---
H&P Addendum H&P Addendum Date: 08/16/22 Patient reports increased epigastric and right upper quadrant abdominal pain more epigastric. He reports intolerance to food. We'll proceed with upper endoscopy.
[2022-08-16] MEDS: SIMETHICONE 80 MG CHEWABLE PO SCH ×3 (10:21→22:25)
[2022-08-16] MEDS: PROPRANOLOL 10 MG TAB PO SCH ×2 (10:22→20:32)
[2022-08-16] MEDS: PANTOPRAZOLE 40 MG/10 ML VIAL IV SCH (10:22)
[2022-08-16] MEDS: IMIPRAMINE 25 MG TAB PO SCH (10:22)
[2022-08-16] MEDS: HEPARIN SODIUM,PORCINE/PF 5,000 UNIT/0.5 ML SYRINGE SQ SCH ×2 (10:23→17:22)
[2022-08-16] MEDS ORDERED: HYOSCYAMINE SULFATE 0.125 MG TAB ONE (10:27)
[2022-08-16] MEDS: LORazepam 1 MG/0.5 ML VIAL IV PRN ×2 (10:39→19:39)
[2022-08-16] MEDS ORDERED: PROPOFOL 10 MG/ML 20 ML VIAL IV ONE (12:09)
[2022-08-16] MEDS ORDERED: IV FLUID CONTINUATION 1,000 ML IV ONE (12:11)
--- NOTE | 2022-08-16 12:27 | P.PCN ---
Date of Procedure: 08/16/22 Description of Procedure: PREOPERATIVE DIAGNOSIS: Gastroesophageal reflux disease. Epigastric abdominal pain Jackhammer esophagus POSTOPERATIVE DIAGNOSIS: Gastroesophageal reflux disease. Gastritis with bleed Duodenitis OPERATION: Esophagogastroduodenoscopy with biopsies along antrum and duodenum SURGEON: Anna Berry MD ANESTHESIA: MAC. INDICATIONS: The patient is a 47-year-old female who presents with jackhammer esophagus and reflux with epigastric pain. Benefits and risks of the procedure were described. Informed consent was obtained. DESCRIPTION: The patient was brought into the endoscopy suite and laid in the left lateral decubitus position. An Olympus gastroscope was passed along the posterior oropharynx down to the distal esophagus where the squamocolumnar junction was encountered at 42 cm from the incisors. The stomach was entered and no bile reflux was found. Additional findings are listed below. Biopsies with cold forceps were obtained of the antrum. The first through third portion of the duodenum was examined. Retroflexion of the scope confirmed Hill grade 2 lower esophageal valve. The squamocolumnar junction demonstrated LA grade B erosive esophagitis. The stomach was desufflated. The patient tolerated the procedure well. FINDINGS: Squamocolumnar junction 42 cm from the incisors. Diaphragmatic hiatus at 42 cm. Hill grade 2 lower esophageal valve. LA grade A erosive esophagitis. Active duodenitis with biopsies obtained Chronic gastritis with recent bleed and biopsies obtained RECOMMENDATIONS: Upper endoscopy as needed. Start Carafate May benefit from esophagram
[2022-08-16] MEDS: SUCRALFATE 1 GM TAB PO SCH ×2 (12:43→17:25)
--- NOTE | 2022-08-16 13:54 | P.PN ---
Subjective Progress Note Date: 08/16/22 Patient states he has not had a bowel movement yet. Patient is still complaining of pain in the epigastric area. He had a EGD done. Please see assessment section for findings. Objective - Vital Signs Vital signs: Vital Signs Temp 97.9 F 08/16/22 07:39 Pulse 56 L 08/16/22 07:39 Resp 14 08/16/22 07:39 BP 150/82 08/16/22 07:39 Pulse Ox 100 08/16/22 07:39 FiO2 Intake & Output 08/15/22 08/16/22 08/16/22 18:59 06:59 18:59 Intake Total 1910 520 100 Output Total 463 388 0684 Balance 1410 -80 -950 Intake: IV 1560 100 Sodium Chloride 0.9% 1, 1560 000 ml @ 130 mls/hr IV . Q7H42M [facility] Rx#:[id number] Oral 350 520 Output: Urine 209 277 2743 Other: Voiding Method Urinal Urinal Urinal # Voids 3 1 - Exam General examination - Alert and Oriented 3 in NAD Heart - + S1S2 no murmurs Lungs - Clear to auscultation Abdomen soft diffuse tenderness to palpate with light palpation ND +ve BS Extremities - No edema [employer]RB[employer] SOCIOLOGIST - Moving all 4 extremities spontaneously Psych - Calm and cooperative - Labs CBC & Chem 7: 08/16/22 04:52 08/16/22 04:52 Labs: Abnormal Lab Results - Last 24 Hours (Table) 08/16/22 08/16/22 Range/Units 04:52 04:52 WBC 3.3 L (3.8-10.6) k/uL Hgb 12.9 L (13.0-17.5) gm/dL Neutrophils # (Manual) 1.22 L (1.3-7.7) k/uL Calcium 8.0 L (8.4-10.2) mg/dL Assessment and Plan Assessment: Ileus X-ray from this morning does not show any sign of obstruction However it does show moderate stool burden Patient started on a bowel regimen Opioids likely also contributing to his constipation so we'll discontinue Dilaudid IV Toradol only for pain Patient also on Hycosamine drops and imipramine Avoid Reglan due to side effect of akathisia Encourage ambulation Patient had an EGD that showed the following findings: Squamocolumnar junction 42 cm from the incisors. Diaphragmatic hiatus at 42 cm. Hill grade 2 lower esophageal valve. LA grade A erosive esophagitis. Active duodenitis with biopsies obtained Chronic gastritis with recent bleed and biopsies obtained Patient started on Protonix and Carafate Awaiting for general surgery to clear patient to restart diet Akathisia Avoid medication that caused tardive dyskinesia Normocytic anemia with leukopenia No overt signs of bleeding Hemoglobin is stable Obesity Patient counseled on weight loss Acute kidney injury with metabolic acidosis Resolved DVT prophylaxis: Subcu heparin
[2022-08-16] MEDS: PANTOPRAZOLE 40 MG TABLET PO SCH (17:25)
[2022-08-16] MEDS ORDERED: LORazepam 2 MG/ML INJ IV PRN (18:27)
--- NOTE | 2022-08-16 18:33 | P.PN ---
Subjective Progress Note Date: 08/16/22 CHIEF COMPLAINT: Abdominal pain HISTORY OF PRESENT ILLNESS: The patient is a 57-year-old gentleman with moderate to severe epigastric to right upper quadrant abdominal pain. He completed EGD earlier today. He reports toradol, GI cocktail had helped with his abdominal pain. Findings of duodenitis and gastritis of upper endoscopy reviewed. He reports anxiety for which Ativan helped. He had a bowel movement. REVIEW OF ORGAN SYSTEMS: No fevers or chills. No chest pain PHYSICAL EXAM: VITALS: Reviewed CONSTITUTIONAL: Well developed and in no acute distress. EYES: Conjuctivae without sclera icterus. Extraocular movements grossly intact. HEAD, EARS, NOSE, THROAT: Moist buccal mucosa. Head is atraumatic, normocephalic. Hears conversational speech. No nasal drainage. RESPIRATORY: Non-labored respirations and equal bilateral excursions. No gross wheezes. CARDIOVASCULAR: Palpable 2+ radial pulses. ABDOMEN: No peritonitis. Tender epigastrium. MUSCULOSKELETAL: No clubbing cyanosis. SKIN: Warm and well perfused with good skin turgor. NEUROLOGIC: Cranial nerves II through XII grossly intact. No focal or lateralizing signs. PSYCH: Appropriate affect. Alert and oriented to person, place and time. Displays appropriate insight. CLINCAL LABS: Reviewed. WBC normal STUDIES: EGD with duodenitis and gastritis ASSESSMENT: 1. Ileus with right-sided abdominal pain 2. Chronic pain syndrome 3. 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 Constipation 5. Esophageal dysmotility, jackhammer esophagus 6. Duodenitis and gastritis PLAN: 1. Ativan for anxiety prescribed. GI cocktail BID - maalox, MOM, and lidocaine without levsin prescribed. 2. Tofranil, trazadone discontinued as patient reports no improvement with medications 3. Toradol continued with carefate started for duodenitis 4. Regular diet re-started. 5. Patient educated that pain may not completely resolve but anticipate discharge home in 24hrs once tolerating diet. Objective - Vital Signs Vital signs: Vital Signs Temp 98.5 F 08/16/22 16:00 Pulse 60 08/16/22 16:00 Resp 16 08/16/22 16:00 BP 125/82 08/16/22 16:00 Pulse Ox 97 08/16/22 16:00 FiO2 Intake & Output 08/15/22 08/16/2208/16/22 18:59 06:59 18:59 Intake Total 1910 520 100 Output Total 946 117 5762 Balance 1410 -80 -1550 Intake: IV 1560 100 Sodium Chloride 0.9% 1, 1560 000 ml @ 130 mls/hr IV . Q7H42M [facility] Rx#:[id number] Oral 350 520 Output: Urine 488 969 2386 Other: Voiding Method Urinal Urinal Urinal # Voids 3 1 - Labs CBC & Chem 7: 08/16/22 04:52 08/16/22 04:52 Labs: Abnormal Lab Results - Last 24 Hours (Table) 08/16/22 08/16/22 Range/Units 04:52 04:52 WBC 3.3 L (3.8-10.6) k/uL Hgb 12.9 L (13.0-17.5) gm/dL Neutrophils # (Manual) 1.22 L (1.3-7.7) k/uL Calcium 8.0 L (8.4-10.2) mg/dL
[2022-08-16] MEDS: AL HYDROX PO SCH ×4 (20:31→22:42)
[2022-08-16] MEDS: MAG HYDROX PO SCH ×4 (20:31→22:42)
[2022-08-16] MEDS: [UNRECOGNIZED DRUG - OTHER] PO SCH ×4 (20:31→22:42)
[2022-08-17] MEDS: SODIUM CHLORIDE 0.9% 1,000 ML IV SCH ×2 (00:14→09:20)
[2022-08-17] MEDS: HEPARIN SODIUM,PORCINE/PF 5,000 UNIT/0.5 ML SYRINGE SQ SCH ×2 (00:15→09:13)
[2022-08-17] MEDS: KETOROLAC 15 MG/ML 1 ML VIAL IVP SCH ×3 (00:15→12:36)
[2022-08-17] MEDS: LORazepam 1 MG/0.5 ML VIAL IV PRN ×2 (00:15→06:51)
[2022-08-17] MEDS: SIMETHICONE 80 MG CHEWABLE PO SCH (09:16)
[2022-08-17] MEDS: SUCRALFATE 1 GM TAB PO SCH ×2 (09:16→12:36)
[2022-08-17] MEDS: PANTOPRAZOLE 40 MG TABLET PO SCH (09:16)
[2022-08-17] MEDS: [UNRECOGNIZED DRUG - OTHER] PO SCH ×2 (09:17)
[2022-08-17] MEDS: AL HYDROX PO SCH ×2 (09:17)
[2022-08-17] MEDS: MAG HYDROX PO SCH ×2 (09:17)
[2022-08-17] MEDS: PROPRANOLOL 10 MG TAB PO SCH (09:20)
[2022-08-17 13:14] VITALS: BP 150/87; PULSE 55; RESP 18; TEMP 98.3
--- NOTE | 2022-08-17 13:59 | P.PN ---
Subjective Progress Note Date: 08/17/22 CHIEF COMPLAINT: Abdominal pain HISTORY OF PRESENT ILLNESS: The patient is a 57-year-old gentleman with moderate to severe epigastric to right upper quadrant abdominal pain. His abdominal pain is better however not completely resolved. No acute psychosis and anxiety. Patient tolerated regular diet. REVIEW OF ORGAN SYSTEMS: No fevers or chills. No chest pain PHYSICAL EXAM: VITALS: Reviewed CONSTITUTIONAL: Well developed and in no acute distress. EYES: Conjuctivae without sclera icterus. Extraocular movements grossly intact. HEAD, EARS, NOSE, THROAT: Moist buccal mucosa. Head is atraumatic, normocephalic. Hears conversational speech. No nasal drainage. RESPIRATORY: Non-labored respirations and equal bilateral excursions. No gross wheezes. CARDIOVASCULAR: Palpable 2+ radial pulses. ABDOMEN: No peritonitis. Tender epigastrium. MUSCULOSKELETAL: No clubbing cyanosis. SKIN: Warm and well perfused with good skin turgor. NEUROLOGIC: Cranial nerves II through XII grossly intact. No focal or lateralizing signs. PSYCH: Appropriate affect. Alert and oriented to person, place and time. Displays appropriate insight. CLINCAL LABS: Reviewed. ASSESSMENT: 1. Ileus with right-sided abdominal pain 2. Chronic pain syndrome 3. 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 Constipation 5. Esophageal dysmotility, jackhammer esophagus 6. Duodenitis and gastritis PLAN: 1. Clinically, symptoms have improved however not completely resolved. Patient was counseled that abdominal pain should improve with Carafate for duodenitis. 2. Otherwise, stable for discharge from a surgical standpoint. 3. Diet as tolerated 4. Care plan discussed with patient. Objective - Vital Signs Vital signs: Vital Signs Temp 98.3 F 08/17/22 12:38 Pulse 55 L 08/17/22 12:38 Resp 18 08/17/22 12:38 BP 150/87 08/17/22 12:38 Pulse Ox 100 08/17/22 12:38 FiO2 Intake & Output 08/16/22 08/17/22 08/17/22 18:59 06:59 18:59 Intake Total 100 590 Output Total 1650 800 Balance -1550 -210 Intake: IV 100 Oral 590 Output: Urine 1650 800 Other: Voiding Method Urinal Urinal Urinal # Voids 1 - Labs CBC & Chem 7: 08/16/22 04:52 08/16/22 04:52
--- NOTE | 2022-08-17 14:08 | P.DS ---
Providers Date of admission: 08/12/22 21:31 Expected date of discharge: 08/17/22 Attending physician: Ernesto Pressley MD Consults: 08/12/22 21:31 Consult Physician Routine Consulting Provider: Anna Berry Consult Reason/Comments: ileus Do you want consulting provider notified?: Yes Primary care physician: Physician Nonstaff Hospital Course: Discharge Diagnosis: Ileus Esophagitis, gastritis, duodenitis Akathisia Normocytic anemia Obesity Acute kidney injury with metabolic acidosis Hospital Course: Patient is a 57-year-old male with no past medical history who presented to the ED with abdominal pain 2 days. In the ED patient had a CT abdomen that suggested ileus. Patient was started on conservative treatment with IV fluids and pain control. Patient had a follow-up abdominal x-ray that did not show any signs of obstruction. However did show a large amount of stool burden. Patient was started on stool softeners. During hospital course patient also complained of epigastric pain. Patient had an EGD done that showed esophagitis gastritis and duodenitis. Patient was started on Carafate, Protonix. Patient was counseled to avoid NSAIDs, caffeinated beverages, chocolates and spicy food. At the time of discharge patient is able to tolerate his diet. He ate eggs for breakfast and did not have any nausea vomiting. He did have persistent pain. The pain was improving. Patient was told that his pain will likely resolve gradually with the anti-acid reflux medications. Patient was deemed stable for discharge. He was instructed to follow-up with general surgery. Patient seen and examined at bedside.[] Vital signs reviewed and stable. General: [non toxic], [no distress], [appears at stated age] Derm: [warm], [dry] Head: [atraumatic], [normocephalic], [symmetric] Eyes: [EOMI], [no lid lag], [anicteric sclera] Mouth: [no lip lesion], [mucus membranes moist] Cardiovascular: [S1S2 reg], [no murmur], [positive posterior tibial pulse bilateral], Lungs: [CTA bilateral], [no rhonchi, no rales] , [no accessory muscle use] Abdominal: [soft], [ nontender to palpation], [no guarding], [no appreciable organomegaly] Ext: [no gross muscle atrophy], [no edema], [no contractures] Neuro: [ CN II-XI grossly intact], [no focal neuro deficits] Psych: [Alert], [oriented], [appropriate affect] A total of [33] minutes of time were spent preparing this complex discharge summary . Patient Condition at Discharge: Good Plan - Discharge Summary Discharge Rx Participant: Yes New Discharge Prescriptions: New Propranolol [Inderal] 10 mg PO BID #60 tab Sucralfate [Carafate] 1 gm PO BID #30 tablet Pantoprazole [Protonix] 40 mg PO DAILY #14 tab Docusate [Colace] 100 mg PO BID #60 capsule Continue oxyCODONE-APAP 10-325MG [Percocet 10-325 mg] 1 tab PO Q8H PRN PRN Reason: Pain Sildenafil [Revatio] 40 mg PO DAILY HYDROcodone/APAP 7.5-325MG [[place] 7.5-325] 1 tab PO TID PRN PRN Reason: Pain Discharge Medication List oxyCODONE-APAP 10-325MG [Percocet 10-325 mg] 1 tab PO Q8H PRN 03/28/21 [History] HYDROcodone/APAP 7.5-325MG [[place] 7.5-325] 1 tab PO TID PRN 08/12/22 [History] Sildenafil [Revatio] 40 mg PO DAILY 08/12/22 [History] Pantoprazole [Protonix] 40 mg PO DAILY #14 tab 08/16/22 [Rx] Sucralfate [Carafate] 1 gm PO BID #30 tablet 08/16/22 [Rx] Docusate [Colace] 100 mg PO BID #60 capsule 08/17/22 [Rx] Propranolol [Inderal] 10 mg PO BID #60 tab 08/17/22 [Rx] Follow up Appointment(s)/Referral(s): Anna Berry MD [STAFF PHYSICIAN] - As Needed Donald Augustin DO [STAFF PHYSICIAN] - 1-2 days Discharge Disposition: HOME SELF-CARE
== END 2022-08-17 15:00 | disposition home or self-care (01) | DRG 388 ==
LOC: EC 19:38 → 5NMEDONC 21:31
PROVIDERS: ADMIT Internal Medicine; ATTEND Internal Medicine
PROC: 0DB78ZX Excision of Stomach, Pylorus, Via Natural or Artificial Opening Endoscopic, Diagnostic (ICD-10-PCS; 2022-08-16)
PROC: 0DB98ZX Excision of Duodenum, Via Natural or Artificial Opening Endoscopic, Diagnostic (ICD-10-PCS; principal; 2022-08-16 08:30)
DX: K56.7 Ileus, unspecified (principal); K29.51 Unspecified chronic gastritis with bleeding; E87.2 Acidosis; N17.9 Acute kidney failure, unspecified; F23 Brief psychotic disorder; K22.10 Ulcer of esophagus without bleeding; E66.9 Obesity, unspecified; I10 Essential (primary) hypertension; J04.10 Acute tracheitis without obstruction; M48.00 Spinal stenosis, site unspecified; D64.9 Anemia, unspecified; G89.4 Chronic pain syndrome; K29.80 Duodenitis without bleeding; F41.9 Anxiety disorder, unspecified; K21.00 Gastro-esophageal reflux disease with esophagitis, without bleeding; T45.0X5A Adverse effect of antiallergic and antiemetic drugs, initial encounter; Y92.230 Patient room in hospital as the place of occurrence of the external cause; G25.71 Drug induced akathisia; Z68.31 Body mass index [BMI] 31.0-31.9, adult; Z91.041 Radiographic dye allergy status; Z91.013 Allergy to seafood; Z79.899 Other long term (current) drug therapy; Z71.3 Dietary counseling and surveillance
CPT/HCPCS: 36415; 43239; 74019; 74176; 80048; 80053; 82150; 83690; 85025; 85610; 85730; 88305; 96361; 96374; 96375; 96376; 99285

== ENCOUNTER 2022-12-21 11:28 | Emergency (ER) | payer OTHER ==
[2022-12-21 11:34] VITALS: TEMP 97
[2022-12-21] MEDS ORDERED: ONDANSETRON 4 MG/2 ML VIAL IVP STA (11:44)
[2022-12-21] MEDS ORDERED: MORPHINE SULFATE 2 MG/ML SYRINGE IVP STA (11:44)
[2022-12-21] MEDS ORDERED: diphenhydrAMINE 50 MG/ML 1 ML VIAL IVP STA (11:44)
[2022-12-21] MEDS ORDERED: FAMOTIDINE 20 MG/2 ML VIAL IV STA (11:44)
[2022-12-21] MEDS ORDERED: SODIUM CHLORIDE 0.9% 1,000 ML IV STA (11:44)
[2022-12-21] MEDS ORDERED: PROCHLORPERAZINE INJ 10 MG/2 ML VIAL IVP STA (11:47)
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
[2022-12-21 12:08] LABS: Basophils % (A) 0 %; Eosinophils # (A) 0.1 k/uL (0-0.7); Eosinophils % (A) 3 %; HCT 38.2 % (39.0-53.0); HGB 12.5 gm/dL (13.0-17.5); Lymphocytes # (A) 1.2 k/uL (1.0-4.8); Lymphocytes % (A) 24 %; MCHC 32.7 g/dL (31.0-37.0); MCV 85.7 fL (80.0-100.0); Mean Platelet Volume 8.2; Monocytes # (A) 0.4 k/uL (0-1.0); Monocytes % (A) 8 %; Neutrophils # (A) 3.1 k/uL (1.3-7.7); Neutrophils % (A) 61 %; Platelet Count 170 k/uL (150-450); RBC 4.46 m/uL (4.30-5.90)
[2022-12-21 12:20] LABS: ALT 26 U/L (4-49); AST 29 U/L (17-59); African American GFR (CKD) >90 (>60 ml/min/1.73 sqM); Albumin 4.3 g/dL (3.5-5.0); Alkaline Phosphatase 112 U/L (38-126); Amylase 74 U/L (30-110); Anion Gap 7 mmol/L; Blood Urea Nitrogen 23 mg/dL (9-20); Calcium 8.8 mg/dL (8.4-10.2); Carbon Dioxide 23 mmol/L (22-30); Chloride 111 mmol/L (98-107); Glucose 98 mg/dL (74-99); Lipase 54 U/L (23-300); Non-African American GFR(CKD) >90 (>60 ml/min/1.73 sqM); Potassium 3.9 mmol/L (3.5-5.1); Sodium 141 mmol/L (137-145); Total Bilirubin 0.3 mg/dL (0.2-1.3); Total Protein 7.7 g/dL (6.3-8.2)
[2022-12-21] MEDS ORDERED: HYDROmorphone 1 MG/ML 1 ML SYRINGE IVP STA ×2 (12:44→13:54)
--- NOTE | 2022-12-21 13:08 | CT ---
EXAMINATION TYPE: CT abdomen pelvis wo con DATE OF EXAM: 12/21/2022 COMPARISON: 08/12/2022 HISTORY: Stomach pain, RUQ and right flank pain CT DLP: 808.8 mGycm Automated exposure control for dose reduction was used. TECHNIQUE: Helical acquisition of images was performed from the lung bases through the pelvis. FINDINGS: LUNG BASES: No significant abnormality is appreciated. LIVER/GB: No significant abnormality is appreciated. Absent gallbladder. PANCREAS: No significant abnormality is seen. SPLEEN: No significant abnormality is seen. ADRENALS: No significant abnormality is seen. KIDNEYS: No significant abnormality is seen. FREE AIR: No free air is visualized RETROPERITONEAL ADENOPATHY: None visualized, but significant beam hardening artifact from spinal rachel dware. REPRODUCTIVE ORGANS: No significant abnormality is seen URINARY BLADDER: No significant abnormality is seen. PELVIC ADENOPATHY: None visualized. OSSEOUS STRUCTURES: Multilevel degenerative changes of the spine as well as posterior spinal fusion hardware from L2 through L5. Degenerative changes of the hips. No acute osseous abnormality. BOWEL: No significant abnormality is seen. IMPRESSION: No acute abnormality in the abdomen or pelvis.
[2022-12-21 13:32] LABS: Appearance,Urine Clear (Clear); Bilirubin,Urine Negative (Negative); Blood,Urine Negative (Negative); Color,Urine Light Yellow; Glucose,Urine (UA) Negative (Negative); Ketones,Urine Negative (Negative); Leukocyte Esterase,Urine Negative (Negative); Nitrite,Urine Negative (Negative); Protein,Urine Negative (Negative); Urobilinogen,Urine <2.0 mg/dL (<2.0)
[2022-12-21 13:42] LABS: Amphetamine Screen,Urine Not Detected (NotDetected); Barbiturate Screen,Urine Not Detected (NotDetected); Benzodiazepines Screen,Urine Not Detected (NotDetected); Cocaine Screen,Urine Not Detected (NotDetected); Methadone Screen, Urine Not Detected (NotDetected); Opiate Screen,Urine Detected (NotDetected); Oxycodone Screen, Urine Not Detected (NotDetected); Phencyclidine Screen,Urine Not Detected (NotDetected); Tricyclic Antidepressant,Urine Not Detected (NotDetected); Urn Cannabinoid Scrn Detected (NotDetected)
[2022-12-21] MEDS ORDERED: ACET/COD 300 MG/30 MG STARTER PACK 6 TAB BTL PO STA (14:47)
[2022-12-21 15:24] VITALS: BP 135/78; PULSE 64; RESP 18
== END 2022-12-21 15:24 | disposition home or self-care (01) ==
LOC: EC 11:28
DX: R10.11 Right upper quadrant pain (principal); I10 Essential (primary) hypertension; F12.90 Cannabis use, unspecified, uncomplicated; Z91.041 Radiographic dye allergy status; Z91.013 Allergy to seafood; Z88.8 Allergy status to other drugs, medicaments and biological substances; Z91.02 Food additives allergy status; Z90.49 Acquired absence of other specified parts of digestive tract; Z90.89 Acquired absence of other organs
CPT/HCPCS: 36415; 80053; 82150; 83605; 83690; 85025; 81003; 80306; 74176; 96374; 96375; 96376; 96361; 99285; J1200; J0780; J2270; J1170

== ENCOUNTER 2023-03-08 07:30 | Emergency (ER) | payer OTHER ==
[2023-03-08 07:38] VITALS: TEMP 98.1
[2023-03-08] MEDS: HYDROmorphone 1 MG/ML 1 ML SYRINGE IVP STA ×2 (08:16→09:45)
[2023-03-08] MEDS: ORPHENADRINE 30 MG/ML 2 ML VIAL IVP STA (08:17)
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
[2023-03-08 08:34] LABS: Basophils % (A) 0 %; Eosinophils # (A) 0.2 k/uL (0-0.7); Eosinophils % (A) 2 %; HCT 39.6 % (39.0-53.0); HGB 12.9 gm/dL (13.0-17.5); Lymphocytes # (A) 1.2 k/uL (1.0-4.8); Lymphocytes % (A) 18 %; MCHC 32.7 g/dL (31.0-37.0); MCV 85.6 fL (80.0-100.0); Mean Platelet Volume 8.5; Monocytes # (A) 0.5 k/uL (0-1.0); Monocytes % (A) 8 %; Neutrophils # (A) 4.3 k/uL (1.3-7.7); Neutrophils % (A) 67 %; Platelet Count 150 k/uL (150-450); RBC 4.63 m/uL (4.30-5.90); RDW 14.9 % (11.5-15.5); WBC 6.4 k/uL (3.8-10.6)
[2023-03-08] MEDS: KETOROLAC 15 MG/ML 1 ML VIAL IVP STA (08:38)
[2023-03-08 08:49] LABS: ALT 29 U/L (4-49); AST 33 U/L (17-59); African American GFR (CKD) >90 (>60 ml/min/1.73 sqM); Albumin 4.4 g/dL (3.5-5.0); Alkaline Phosphatase 114 U/L (38-126); Anion Gap 6 mmol/L; Blood Urea Nitrogen 24 mg/dL (9-20); C Reactive Protein 0.8 mg/dL (<1.0); Carbon Dioxide 23 mmol/L (22-30); Chloride 110 mmol/L (98-107); Glucose 104 mg/dL (74-99); Non-African American GFR(CKD) 78 (>60 ml/min/1.73 sqM); Sodium 139 mmol/L (137-145); Total Bilirubin 0.4 mg/dL (0.2-1.3); Total Protein 8.1 g/dL (6.3-8.2)
--- NOTE | 2023-03-08 09:05 | XR ---
EXAMINATION TYPE: XR chest 2V DATE OF EXAM: 03/08/2023 COMPARISON: 12/01/2020 INDICATION: Pain right side neck TECHNIQUE: Frontal and lateral views of the chest are obtained. FINDINGS: The heart size is normal. The pulmonary vasculature is normal. The lungs are clear. IMPRESSION: 1. No acute pulmonary process.
--- NOTE | 2023-03-08 09:10 | XR ---
EXAMINATION TYPE: XR shoulder complete RT DATE OF EXAM: 03/08/2023 COMPARISON: NONE HISTORY: Pain TECHNIQUE: 8 Shoulder examined in 3 projections. FINDINGS: The humeral head articulates with the glenoid. There is narrowing of the glenohumeral junction. The acromio-clavicular junction is normal. No acute fractures or dislocations are evident. A follow up study can be performed 7-10 days from acute trauma for continued pain. MRI can be perfor med if soft tissue evaluation would be of benefit. IMPRESSION: 1. Degenerative changes glenohumeral junction. 2. No acute osseous abnormality.
--- NOTE | 2023-03-08 09:12 | XR ---
EXAMINATION TYPE: XR cervical spine comp DATE OF EXAM: 03/08/2023 COMPARISON: None HISTORY: Pain right side neck TECHNIQUE: 5 view cervical spine FINDINGS: There is loss of disc height throughout the cervical spine. Anterior fusion body spurring i s present C3-C7. Posterior spinal lamellar line is intact. Foraminal narrowing on the right is presen t C3-4 C4-5. Odontoid is limited with overlying maxilla IMPRESSION: 1. Degenerative disc changes throughout cervical spine. MRI can be performed as clinically indicated .
[2023-03-08] MEDS: LORazepam 2 MG/ML INJ IV STA (09:48)
--- NOTE | 2023-03-08 10:19 | US ---
EXAMINATION TYPE: US venous doppler duplex UE RT DATE OF EXAM: 03/08/2023 COMPARISON: NONE CLINICAL HISTORY: Right arm pain, elevated d-dimer. Right neck pain SIDE PERFORMED: Right Right Arm: Negative for DVT IMPRESSION: 1. Right upper extremity negative for deep venous thrombosis.
[2023-03-08 12:58] VITALS: BP 144/76; PULSE 58; RESP 16
== END 2023-03-08 12:58 | disposition home or self-care (01) ==
LOC: EC 07:30
DX: S16.1XXA Strain of muscle, fascia and tendon at neck level, initial encounter (principal); M43.6 Torticollis; M47.812 Spondylosis without myelopathy or radiculopathy, cervical region; M19.90 Unspecified osteoarthritis, unspecified site; I10 Essential (primary) hypertension; F12.90 Cannabis use, unspecified, uncomplicated; Z79.1 Long term (current) use of non-steroidal anti-inflammatories (NSAID); Z91.013 Allergy to seafood; Z88.6 Allergy status to analgesic agent; Z91.041 Radiographic dye allergy status; Z91.048 Other nonmedicinal substance allergy status; X58.XXXA Exposure to other specified factors, initial encounter
CPT/HCPCS: 36415; 93005; 85379; 80053; 83605; 84484; 85025; 86140; 72050; 73030; 71046; 93971; 99285; 96374; 96375 ×4; 96376; J2060; J2360; J3360; J1170; J1885

== ENCOUNTER 2023-12-05 05:51 | Emergency (ER) | payer OTHER ==
[2023-12-05] MEDS ORDERED: KETOROLAC 15 MG/ML 1 ML VIAL IM STA (06:12)
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
[2023-12-05 06:16] VITALS: RESP 18
--- NOTE | 2023-12-05 06:59 | XR ---
EXAMINATION TYPE: XR hand complete RT DATE OF EXAM: 12/05/2023 COMPARISON: 02/23/2012 HISTORY: Pain second and third digit TECHNIQUE: 3 view right hand FINDINGS: There is an old fourth mid diaphyseal metacarpal fracture, present previously. No acute fractures are evident. Diffuse soft tissue swelling is present. Joint spaces are preserved. Follow up exams can be performed 7-10 days from acute trauma for continued pain. IMPRESSION: 1. Diffuse soft tissue swelling right hand
[2023-12-05 07:28] VITALS: BP 161/80; PULSE 64; TEMP 98.4
== END 2023-12-05 07:23 | disposition home or self-care (01) ==
LOC: EC 05:51
DX: S60.221A Contusion of right hand, initial encounter (principal); I10 Essential (primary) hypertension; M19.90 Unspecified osteoarthritis, unspecified site; F12.90 Cannabis use, unspecified, uncomplicated; Z79.1 Long term (current) use of non-steroidal anti-inflammatories (NSAID); Z79.899 Other long term (current) drug therapy; Z91.041 Radiographic dye allergy status; Z91.013 Allergy to seafood; Z88.8 Allergy status to other drugs, medicaments and biological substances; W22.8XXA Striking against or struck by other objects, initial encounter
CPT/HCPCS: 73130; 99283; 96372; 29125; J1885

== ENCOUNTER 2023-12-05 18:18 | Observation (INO) | payer OTHER ==
[2023-12-05] MEDS ORDERED: HYDROmorphone 1 MG/ML 1 ML SYRINGE IM STA (18:53)
[2023-12-05] MEDS ORDERED: KETOROLAC 15 MG/ML 1 ML VIAL IM STA (19:39)
--- NOTE | 2023-12-05 19:46 | XR ---
EXAMINATION TYPE: XR forearm RT, XR hand complete RT DATE OF EXAM: 12/05/2023 7:29 PM CLINICAL INDICATION:Male, 58 years old with history of Pain; COMPARISON: 12/05/2023 TECHNIQUE: XR forearm RT, XR hand complete RT; forearm was examined in AP and lateral projections. FINDINGS: There is soft tissue swelling particularly around the thumb. Deformity to the fourth metaca rpal compatible with remote injury. No acute osseous pathology or joint dislocations are seen. IMPRESSION: Soft tissue swelling around the thumb without evidence for fracture. Consider further evaluation with MRI.
[2023-12-05] MEDS ORDERED: HYDROcodone/APAP 10-325MG 1 EACH TAB PO ONE (19:47)
[2023-12-05] MEDS ORDERED: DEXAMETHASONE SOD PHOSPHATE 10 MG/ML 1 ML VIAL IM STA (20:07)
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
[2023-12-05] MEDS ORDERED: LORazepam 2 MG/ML INJ IV STA (21:48)
[2023-12-05] MEDS ORDERED: HYDROmorphone 1 MG/ML 1 ML SYRINGE IVP STA (21:48)
[2023-12-05] MEDS ORDERED: MORPHINE SULFATE 4 MG/ML SYRINGE IVP STA (21:51)
[2023-12-05 22:21] LABS: Basophils % (A) 0 %; Eosinophils # (A) 0.2 k/uL (0-0.7); Eosinophils % (A) 1 %; HCT 39.5 % (39.0-53.0); HGB 13.1 gm/dL (13.0-17.5); Lymphocytes # (A) 1.1 k/uL (1.0-4.8); Lymphocytes % (A) 10 %; MCH 28.9 pg (25.0-35.0); MCHC 33.1 g/dL (31.0-37.0); MCV 87.4 fL (80.0-100.0); Mean Platelet Volume 8.7; Monocytes # (A) 0.7 k/uL (0-1.0); Monocytes % (A) 6 %; Neutrophils # (A) 9.1 k/uL (1.3-7.7); Neutrophils % (A) 81 %; Platelet Count 154 k/uL (150-450); RBC 4.52 m/uL (4.30-5.90); RDW 14.6 % (11.5-15.5); WBC 11.2 k/uL (3.8-10.6)
[2023-12-05 22:41] LABS: ALT 55 U/L (4-49); AST 94 U/L (17-59); African American GFR (CKD) 82 (>60 ml/min/1.73 sqM); Albumin 4.5 g/dL (3.5-5.0); Alkaline Phosphatase 133 U/L (38-126); Anion Gap 11 mmol/L; Blood Urea Nitrogen 31 mg/dL (9-20); Calcium 9.4 mg/dL (8.4-10.2); Carbon Dioxide 20 mmol/L (22-30); Chloride 108 mmol/L (98-107); Glucose 106 mg/dL (74-99); Non-African American GFR(CKD) 71 (>60 ml/min/1.73 sqM); Potassium 4.3 mmol/L (3.5-5.1); Sodium 139 mmol/L (137-145); Total Bilirubin 0.6 mg/dL (0.2-1.3); Total Protein 8.4 g/dL (6.3-8.2)
[2023-12-06] MEDS ORDERED: ONDANSETRON 4 MG/2 ML VIAL IVP PRN (00:13)
[2023-12-06] MEDS ORDERED: IBUPROFEN 400 MG TAB PO PRN (00:13)
[2023-12-06] MEDS ORDERED: KETOROLAC 15 MG/ML 1 ML VIAL IVP PRN (00:13)
[2023-12-06] MEDS ORDERED: NALOXONE 0.4 MG/ML 1 ML VIAL IV PRN (00:13)
[2023-12-06] MEDS: HYDROmorphone 1 MG/ML 1 ML SYRINGE IVP PRN ×4 (02:33→16:30)
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
[2023-12-06 16:37] VITALS: BP 164/89; PULSE 65; RESP 16; TEMP 98.6
== END 2023-12-06 18:03 | disposition home or self-care (01) ==
LOC: EC 18:18 → 6NMEDSUR 12-06 00:39 → 1SOBS 12-06 07:40
PROVIDERS: ADMIT Hospitalist; ATTEND Hospitalist
DX: S62.310A Displaced fracture of base of second metacarpal bone, right hand, initial encounter for closed fracture (principal); Y04.0XXA Assault by unarmed brawl or fight, initial encounter; K21.9 Gastro-esophageal reflux disease without esophagitis; I10 Essential (primary) hypertension; Z87.891 Personal history of nicotine dependence; Z79.899 Other long term (current) drug therapy
CPT/HCPCS: 96376 ×2; 96372; 96374; 96375 ×2; 99284; 36415; 80053; 83605; 83735; 85025; 73090; 73130; G0378 ×2; J2060; J2270; J1100; J1170 ×2; J1885 ×2

== ENCOUNTER 2024-01-08 09:34 | Emergency (ER) | payer OTHER ==
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
[2024-01-08] MEDS: SODIUM CHLORIDE 0.9% 1,000 ML IV STA ×2 (09:50→11:37)
[2024-01-08] MEDS: HYDROmorphone 1 MG/ML 1 ML SYRINGE IVP STA ×2 (09:50→10:52)
[2024-01-08] MEDS: ONDANSETRON 4 MG/2 ML VIAL IVP STA (09:50)
[2024-01-08] MEDS: PANTOPRAZOLE 40 MG/10 ML VIAL IVP STA (09:50)
[2024-01-08 10:04] LABS: Basophils % (A) 0 %; Eosinophils # (A) 0.2 k/uL (0-0.7); Eosinophils % (A) 3 %; HCT 39.8 % (39.0-53.0); HGB 12.9 gm/dL (13.0-17.5); Lymphocytes # (A) 1.3 k/uL (1.0-4.8); Lymphocytes % (A) 22 %; MCH 28.8 pg (25.0-35.0); MCHC 32.4 g/dL (31.0-37.0); MCV 89.1 fL (80.0-100.0); Mean Platelet Volume 8.4; Monocytes # (A) 0.5 k/uL (0-1.0); Monocytes % (A) 8 %; Neutrophils % (A) 64 %; Platelet Count 179 k/uL (150-450); RBC 4.47 m/uL (4.30-5.90); RDW 14.4 % (11.5-15.5); WBC 6.2 k/uL (3.8-10.6)
[2024-01-08 10:18] LABS: African American GFR (CKD) >90 (>60 ml/min/1.73 sqM); Alkaline Phosphatase 107 U/L (38-126); Amylase 77 U/L (30-110); Anion Gap 8 mmol/L; Blood Urea Nitrogen 28 mg/dL (9-20); Calcium 9.3 mg/dL (8.4-10.2); Carbon Dioxide 20 mmol/L (22-30); Chloride 112 mmol/L (98-107); Glucose 98 mg/dL (74-99); Lipase 72 U/L (23-300); Non-African American GFR(CKD) 80 (>60 ml/min/1.73 sqM); Sodium 140 mmol/L (137-145); Total Bilirubin 0.6 mg/dL (0.2-1.3)
[2024-01-08 10:24] LABS: AST 42 U/L (17-59); Albumin 4.6 g/dL (3.5-5.0); INR 0.9 (<1.2); Potassium 4.9 mmol/L (3.5-5.1); Prothrombin Time 10.3 sec (10.0-12.5); Total Protein 8.5 g/dL (6.3-8.2)
[2024-01-08 10:25] LABS: ALT 24 U/L (4-49)
[2024-01-08 10:36] VITALS: RESP 18
--- NOTE | 2024-01-08 10:51 | XR ---
EXAMINATION TYPE: XR KUB DATE OF EXAM: 01/08/2024 10:14 AM CLINICAL INDICATION:Male, 58 years old with history of abdominal pain; [facility] COMPARISON: 03/31/2021. TECHNIQUE: One radiographic view of the abdomen was obtained. FINDINGS: The bowel gas pattern is nonspecific without dilated loops of small or large bowel. There i s no evidence for organomegaly or pneumoperitoneum. The osseous structures are intact. No abnormal calcifications are present. Fecal material and gas are demonstrated throughout the colon and rectum. Fixation hardware in the spine appears intact. IMPRESSION: Nonspecific bowel gas pattern without radiographic evidence for acute process.
[2024-01-08] MEDS: HALOPERIDOL LACTATE 5 MG/ML 1 ML VIAL IM STA (11:39)
[2024-01-08] MEDS: LORazepam 2 MG/ML INJ IV STA (12:07)
[2024-01-08 14:04] VITALS: BP 151/94; PULSE 89; TEMP 98.2
== END 2024-01-08 13:46 | disposition home or self-care (01) ==
LOC: EC 09:34
DX: K22.4 Dyskinesia of esophagus (principal); F41.9 Anxiety disorder, unspecified; I10 Essential (primary) hypertension; M19.90 Unspecified osteoarthritis, unspecified site; Z79.899 Other long term (current) drug therapy; Z87.891 Personal history of nicotine dependence; Z91.041 Radiographic dye allergy status; Z91.013 Allergy to seafood; Z88.8 Allergy status to other drugs, medicaments and biological substances; Z90.49 Acquired absence of other specified parts of digestive tract
CPT/HCPCS: 99285; 96374; 96376; 96375 ×3; 96361 ×4; 96372; 36415; 93005; 80053; 82150; 83690; 85025; 85610; 85730; 74018; J2060; J1630; J2405; J1170; C9113

== ENCOUNTER 2024-01-10 09:36 | Emergency (ER) | payer OTHER ==
[2024-01-10] MEDS: droPERidol 5 MG/2 ML VIAL IVP ONE (09:48)
[2024-01-10] MEDS: SODIUM CHLORIDE 0.9% 1,000 ML IV STA (09:51)
[2024-01-10 10:28] LABS: ALT 24 U/L (4-49); AST 30 U/L (17-59); African American GFR (CKD) 65 (>60 ml/min/1.73 sqM); Albumin 4.3 g/dL (3.5-5.0); Alkaline Phosphatase 112 U/L (38-126); Amylase 69 U/L (30-110); Anion Gap 12 mmol/L; Blood Urea Nitrogen 27 mg/dL (9-20); Calcium 9.4 mg/dL (8.4-10.2); Carbon Dioxide 21 mmol/L (22-30); Chloride 109 mmol/L (98-107); Glucose 105 mg/dL (74-99); Lipase 89 U/L (23-300); Non-African American GFR(CKD) 56 (>60 ml/min/1.73 sqM); Sodium 142 mmol/L (137-145); Total Bilirubin 0.3 mg/dL (0.2-1.3); Total Protein 7.8 g/dL (6.3-8.2)
[2024-01-10 10:33] LABS: Basophils % (A) 1 %; Eosinophils # (A) 0.2 k/uL (0-0.7); Eosinophils % (A) 3 %; HCT 39.8 % (39.0-53.0); HGB 12.9 gm/dL (13.0-17.5); Lymphocytes # (A) 1.4 k/uL (1.0-4.8); Lymphocytes % (A) 25 %; MCH 28.8 pg (25.0-35.0); MCHC 32.5 g/dL (31.0-37.0); MCV 88.7 fL (80.0-100.0); Mean Platelet Volume 8.8; Monocytes # (A) 0.6 k/uL (0-1.0); Monocytes % (A) 11 %; Neutrophils # (A) 3.2 k/uL (1.3-7.7); Neutrophils % (A) 57 %; Platelet Count 189 k/uL (150-450); RBC 4.48 m/uL (4.30-5.90); RDW 14.5 % (11.5-15.5); WBC 5.6 k/uL (3.8-10.6)
[2024-01-10] MEDS: LORazepam 2 MG/ML INJ IV STA (10:52)
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
[2024-01-10 11:23] VITALS: BP 151/83; PULSE 58; RESP 18; TEMP 97
== END 2024-01-10 11:08 | disposition home or self-care (01) ==
LOC: EC 09:36
DX: R10.9 Unspecified abdominal pain (principal); R11.0 Nausea; F41.9 Anxiety disorder, unspecified; I10 Essential (primary) hypertension; Z79.899 Other long term (current) drug therapy; Z87.891 Personal history of nicotine dependence; Z90.49 Acquired absence of other specified parts of digestive tract; Z88.8 Allergy status to other drugs, medicaments and biological substances; Z91.041 Radiographic dye allergy status; Z91.013 Allergy to seafood
CPT/HCPCS: 36415; 80053; 82150; 83690; 85025; 99285; 96374; 96375; 96361; J2060; J1790

== ENCOUNTER → 2024-02-15 | Outpatient (CLI) | payer OTHER ==
--- NOTE | 2024-02-19 15:48 | MR ---
EXAMINATION TYPE: MR wrist RT wo con DATE OF EXAM: 02/15/2024 COMPARISON: 02/04/2024 radiograph HISTORY: 58-year-old male M25.531, Rt wrist pain, swelling, limited motion x 4 weeks TECHNIQUE: Multiplanar, multisequence images of the right wrist were obtained without IV contrast. FINDINGS: There is some image degradation due to patient motion. The technologist reports that sequences were n ot repeated due to patient claustrophobia. There is patchy marrow edema throughout the carpus, base of the metacarpals, and throughout the wrist joints. Scattered small joint effusions. Suggestion of moderate diffuse thinning of radiocarpal maikel cular cartilage. Moderate degenerative change at the first CMC joint. Some bony deformity suggesting old healed fracture mid shaft of the fourth metacarpal. Some additiona l prominent bony spurring and deformity along the dorsal aspect of the second CMC joint, possible seq uela of prior healed impaction fracture with secondary degenerative change. There is a moderate effusion within the distal radioulnar joint. Moderate effusion along the extensor carpi ulnaris tendon sheath. Large partial-thickness tear of the central portion of the TFC. The scapholunate and lunotriquetral ligaments appear intact. IMPRESSION: 1. Patchy marrow edema throughout the carpus, base of the metacarpals, and wrist joint. Scattered sma ll effusions. Cartilage thinning in the radiocarpal joint. We note periarticular osteopenia as well a s faint TFC and synovial calcifications on patient's outside radiographs. Consider CPPD arthropathy v ersus early inflammatory arthropathy such as RA. 2. Old healed fracture deformity fourth metacarpal shaft. Moderate OA basal joint of the thumb. Also, suspect posttraumatic OA at the second CMC joint with prominent dorsal bony irregularity and hyperos tosis. 3. Nearly full-thickness TFC tear. DRUJ effusion and adjacent moderate ECU tenosynovitis.
== END | disposition home or self-care (01) ==
LOC: RADMRIMAIN 10:49
PROVIDERS: ATTEND Orthopaedic Surgery Hand Surgery
DX: M85.88 Other specified disorders of bone density and structure, other site (principal); R60.0 Localized edema; M65.831 Other synovitis and tenosynovitis, right forearm

== ENCOUNTER 2024-07-30 19:19 | Emergency (ER) | payer OTHER ==
[2024-07-30 19:27] VITALS: RESP 18; TEMP 98.7
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
[2024-07-30] MEDS: SODIUM CHLORIDE 0.9% 1,000 ML IV STA (19:59)
[2024-07-30] MEDS: HYDROmorphone 1 MG/ML 1 ML SYRINGE IVP STA ×2 (19:59→22:55)
[2024-07-30 20:07] LABS: Basophils % (A) 0 %; Eosinophils # (A) 0.1 k/uL (0-0.7); Eosinophils % (A) 2 %; HCT 42.3 % (39.0-53.0); HGB 13.7 gm/dL (13.0-17.5); Hypochromasia Slight; Lymphocytes # (A) 1.2 k/uL (1.0-4.8); Lymphocytes % (A) 19 %; MCH 28.4 pg (25.0-35.0); MCHC 32.5 g/dL (31.0-37.0); MCV 87.3 fL (80.0-100.0); Mean Platelet Volume 8.2; Monocytes # (A) 0.5 k/uL (0-1.0); Monocytes % (A) 7 %; Neutrophils # (A) 4.4 k/uL (1.3-7.7); Neutrophils % (A) 68 %; Platelet Count 186 k/uL (150-450); RBC 4.85 m/uL (4.30-5.90); RDW 14.4 % (11.5-15.5); WBC 6.5 k/uL (3.8-10.6)
[2024-07-30 20:20] LABS: ALT 26 U/L (4-49); AST 38 U/L (17-59); African American GFR (CKD) 63 (>60 ml/min/1.73 sqM); Albumin 5.2 g/dL (3.5-5.0); Alkaline Phosphatase 105 U/L (38-126); Amylase 64 U/L (30-110); Anion Gap 9 mmol/L; Blood Urea Nitrogen 31 mg/dL (9-20); Calcium 9.8 mg/dL (8.4-10.2); Carbon Dioxide 22 mmol/L (22-30); Chloride 103 mmol/L (98-107); Glucose 99 mg/dL (74-99); Lipase 64 U/L (23-300); Non-African American GFR(CKD) 54 (>60 ml/min/1.73 sqM); Potassium 3.9 mmol/L (3.5-5.1); Sodium 134 mmol/L (137-145); Total Bilirubin 0.6 mg/dL (0.2-1.3); Total Protein 9.1 g/dL (6.3-8.2)
[2024-07-30] MEDS: LORazepam 2 MG/ML INJ IV STA (21:05)
--- NOTE | 2024-07-30 22:56 | CT ---
EXAMINATION TYPE: CT abdomen pelvis wo con CT DLP: 1275.3 mGycm, Automated exposure control for dose reduction was used. DATE OF EXAM: 07/30/2024 8:44 PM COMPARISON: None. CLINICAL INDICATION:Male, 58 years old with history of RUQ ab pain, N/V; RUQ pain, nausea, vomiting TECHNIQUE: Axial CT of the abdomen and pelvis. Sagittal and coronal reformats were created on a [employer] workstation. Contrast used: mL of , (none if empty) Oral contrast used: without Oral Contrast (none if empty) FINDINGS: Exam is limited without contrast. Exam is limited by motion artifact. Further limitation by streak ar tifacts resulting from the patient's arms being across the field of view. LOWER CHEST: Motion blurring with no definite acute infiltrate or pleural effusion. Heart appears mil dly enlarged. Mild/moderate coronary artery calcifications. ABDOMEN LIVER: Grossly unremarkable GALLBLADDER AND BILE DUCTS: Gallbladder is not visualized. No significant ductal dilatation is sugges patricia. PANCREAS: Grossly unremarkable SPLEEN: Grossly unremarkable ADRENAL GLANDS: Grossly unremarkable. KIDNEYS AND URETERS: No definite renal/ureteral calculi or hydronephrosis. PELVIS BLADDER: Grossly unremarkable REPRODUCTIVE: Grossly unremarkable ABDOMEN & PELVIS STOMACH AND BOWEL: No evidence of bowel obstruction or pneumatosis. Appendix is not clearly visualize d but there are no signs of appendicitis. Mild/moderate stool throughout the colon. A few diverticula are suggested distally. No acute colonic abnormality is shown. PERITONEUM/RETROPERITONEUM: No evidence of pneumoperitoneum or free fluid. VASCULATURE: Moderate atherosclerotic calcifications are present throughout the abdominal aorta and i ts branches. No evidence of aortic aneurysm. LYMPH NODES: No enlarged nodes by CT size criteria. SOFT TISSUE/ABDOMINAL WALL: Unremarkable MUSCULOSKELETAL: No acute osseous abnormalities are shown. Degenerative changes and multilevel poste rior fusion hardware in the lumbar spine. Moderate bilateral hip arthropathy. IMPRESSION: Limited study shows no clearly acute abnormality in the abdomen or pelvis.
[2024-07-30 23:04] LABS: Appearance,Urine Clear (Clear); Bilirubin,Urine Negative (Negative); Blood,Urine Negative (Negative); Color,Urine Colorless; Glucose,Urine (UA) Negative (Negative); Ketones,Urine 1+ (Negative); Leukocyte Esterase,Urine Negative (Negative); Nitrite,Urine Negative (Negative); PH, Urine 5.5 (5.0-8.0); Protein,Urine Negative (Negative); Specific Gravity,Urine 1.022 (1.001-1.035); Urobilinogen,Urine <2.0 mg/dL (<2.0)
[2024-07-30 23:40] VITALS: BP 117/70
[2024-07-30] MEDS: ONDANSETRON 4 MG/2 ML VIAL IVP STA (23:41)
[2024-07-30 23:45] VITALS: PULSE 64
== END 2024-07-31 00:03 | disposition home or self-care (01) ==
LOC: EC 19:19
CPT/HCPCS: 36415; 74176; 80053; 81003; 82150; 83605; 83690; 85025; 96361; 96374; 96375; 96376; 99284

== ENCOUNTER 2024-08-01 04:32 | Emergency (ER) | payer OTHER ==
[2024-08-01 04:42] VITALS: TEMP 98
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
[2024-08-01] MEDS: SODIUM CHLORIDE 0.9% 1,000 ML IV STA ×2 (04:54→05:07)
[2024-08-01] MEDS: HYDROmorphone 1 MG/ML 1 ML SYRINGE IVP STA (04:55)
[2024-08-01] MEDS: LORazepam 2 MG/ML INJ IV STA (04:57)
[2024-08-01] MEDS: diphenhydrAMINE 50 MG/ML 1 ML VIAL IVP STA (04:58)
[2024-08-01] MEDS: PANTOPRAZOLE 40 MG/10 ML VIAL IVP STA (05:00)
[2024-08-01 05:04] LABS: Basophils % (A) 0 %; Eosinophils # (A) 0.2 k/uL (0-0.7); Eosinophils % (A) 2 %; HCT 39.5 % (39.0-53.0); HGB 12.9 gm/dL (13.0-17.5); Lymphocytes % (A) 28 %; MCH 28.1 pg (25.0-35.0); MCHC 32.7 g/dL (31.0-37.0); Mean Platelet Volume 8.8; Monocytes # (A) 0.8 k/uL (0-1.0); Monocytes % (A) 11 %; Neutrophils # (A) 3.8 k/uL (1.3-7.7); Neutrophils % (A) 55 %; Platelet Count 190 k/uL (150-450); RBC 4.59 m/uL (4.30-5.90); RDW 14.4 % (11.5-15.5)
[2024-08-01] MEDS: PROCHLORPERAZINE INJ 10 MG/2 ML VIAL IVP STA (05:04)
[2024-08-01] MEDS: SODIUM CHLORIDE 0.9% 500 ML 500 ML IV STA (05:07)
[2024-08-01 05:24] LABS: ALT 26 U/L (4-49); African American GFR (CKD) 68 (>60 ml/min/1.73 sqM); Amylase 55 U/L (30-110); Anion Gap 9 mmol/L; Blood Urea Nitrogen 27 mg/dL (9-20); Calcium 9.3 mg/dL (8.4-10.2); Carbon Dioxide 22 mmol/L (22-30); Chloride 106 mmol/L (98-107); Glucose 97 mg/dL (74-99); Lipase 122 U/L (23-300); Non-African American GFR(CKD) 59 (>60 ml/min/1.73 sqM); Sodium 137 mmol/L (137-145)
[2024-08-01 05:51] LABS: AST 44 U/L (17-59); Albumin 4.7 g/dL (3.5-5.0); Alkaline Phosphatase 88 U/L (38-126); Potassium 4.6 mmol/L (3.5-5.1); Total Protein 8.3 g/dL (6.3-8.2)
[2024-08-01 06:41] VITALS: BP 157/73; PULSE 92; RESP 16
== END 2024-08-01 06:47 | disposition home or self-care (01) ==
LOC: EC 04:32
DX: R10.9 Unspecified abdominal pain (principal); Z87.891 Personal history of nicotine dependence; Z91.041 Radiographic dye allergy status; Z91.013 Allergy to seafood; Z88.8 Allergy status to other drugs, medicaments and biological substances
CPT/HCPCS: 36415; 80053; 82150; 83690; 85025; 99284; 96374; 96375 ×4; 96361 ×2; J2060; J1200; J0780; J1170; J2470

== ENCOUNTER 2025-01-26 02:06 | Emergency (ER) | payer OTHER ==
[2025-01-26 02:13] VITALS: TEMP 97.4
[2025-01-26] MEDS: MORPHINE SULFATE 4 MG/ML SYRINGE IVP STA (02:45)
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
[2025-01-26] MEDS: SODIUM CHLORIDE 0.9% 1,000 ML IV STA (02:46)
[2025-01-26] MEDS: ONDANSETRON 4 MG/2 ML VIAL IVP STA (02:46)
[2025-01-26 03:13] LABS: Prothrombin Time 10.8 sec (10.0-12.5)
[2025-01-26 03:15] LABS: MCH 26.9 pg (25.0-35.0); MCV 86.8 fL (80.0-100.0); Mean Platelet Volume 8.1; Platelet Count 180 k/uL (150-450); RBC 4.84 m/uL (4.30-5.90); RDW 14.7 % (11.5-15.5); WBC 4.5 k/uL (3.8-10.6)
[2025-01-26] MEDS: HYDROmorphone 1 MG/ML 1 ML SYRINGE IVP STA ×2 (03:16→04:15)
--- NOTE | 2025-01-26 03:41 | CT ---
EXAM: CT Abdomen and Pelvis Without Intravenous Contrast CLINICAL HISTORY: ITS.REASON CT Reason: RLQ "twisting" abdominal pain TECHNIQUE: Axial computed tomography images of the abdomen and pelvis without intravenous contrast. CTDI is 14 mGy and DLP is 824.1 mGy-cm. This CT exam was performed using one or more of the following dose reduction techniques: automated exposure control, adjustment of the mA and/or kV according to patient size, and/or use of iterative reconstruction technique. COMPARISON: No relevant prior studies available. FINDINGS: Lung bases: Unremarkable. No mass. No consolidation. ABDOMEN: Liver: Unremarkable. Gallbladder and bile ducts: Unremarkable. No calcified stones. No ductal dilation. Pancreas: Unremarkable. No ductal dilation. Spleen: Unremarkable. No splenomegaly. Adrenals: Unremarkable. No mass. Kidneys and ureters: Unremarkable. No hydronephrosis, nephrolithiasis, or obstructive uropathy. Stomach and bowel: Diverticulosis, without acute diverticulitis. No small bowel obstruction. No free intraperitoneal air. PELVIS: Appendix: No findings to suggest acute appendicitis. Bladder: Unremarkable. No stones. Reproductive: Unremarkable as visualized. ABDOMEN and PELVIS: Intraperitoneal space: Unremarkable. No free air. No significant fluid collection. Bones/joints: Degenerative changes of the spine. Posterior fusion at L2-L5. No acute fracture. No dislocation. Soft tissues: Unremarkable. Vasculature: Atherosclerotic changes of the aorta. No abdominal aortic aneurysm. Lymph nodes: Unremarkable. No enlarged lymph nodes. IMPRESSION: 1. No hydronephrosis, nephrolithiasis, or obstructive uropathy. 2. Diverticulosis, without acute diverticulitis. No small bowel obstruction. No free intraperitoneal air.
[2025-01-26 03:55] LABS: Band Neutrophils % 1 %; Eosinophils # (M) 0.14 k/uL (0-0.7); Lymphocytes # (M) 0.81 k/uL (1.0-4.8); Monocytes # (M) 1.98 k/uL (0-1.0); Neutrophils % (M) 34 %; Nucleated Red Blood Cells 0 /100 WBC (0-0); Total Cells Counted 100
[2025-01-26 03:59] LABS: ALT 26 U/L (4-49); AST 28 U/L (17-59); African American GFR (CKD) 73 (>60 ml/min/1.73 sqM); Albumin 4.7 g/dL (3.5-5.0); Alkaline Phosphatase 101 U/L (38-126); Amylase 56 U/L (30-110); Anion Gap 10 mmol/L; Blood Urea Nitrogen 29 mg/dL (9-20); Calcium 9.7 mg/dL (8.4-10.2); Carbon Dioxide 24 mmol/L (22-30); Chloride 103 mmol/L (98-107); Glucose 97 mg/dL (74-99); Lipase 107 U/L (23-300); Non-African American GFR(CKD) 64 (>60 ml/min/1.73 sqM); Sodium 137 mmol/L (137-145); Total Bilirubin 0.4 mg/dL (0.2-1.3); Total Protein 8.2 g/dL (6.3-8.2)
[2025-01-26] MEDS: HALOPERIDOL LACTATE 5 MG/ML 1 ML VIAL IVP STA (04:14)
[2025-01-26] MEDS: diphenhydrAMINE 50 MG/ML 1 ML VIAL IVP STA (04:14)
[2025-01-26] MEDS: FAMOTIDINE 20 MG/2 ML VIAL IV STA (04:14)
[2025-01-26] MEDS: MAG HYDROX/AL HYDROX/SIMETH 30 ML CUP PO STA (04:20)
[2025-01-26] MEDS: KETOROLAC 15 MG/ML 1 ML VIAL IVP STA (04:26)
[2025-01-26] MEDS: SUCRALFATE 1 GM TAB PO STA (04:26)
[2025-01-26 04:59] LABS: Appearance,Urine Clear (Clear); Bilirubin,Urine Negative (Negative); Blood,Urine Trace (Negative); Color,Urine Light Yellow; Glucose,Urine (UA) Negative (Negative); Ketones,Urine Trace (Negative); Leukocyte Esterase,Urine Negative (Negative); Mucus,Urine Rare /hpf; Nitrite,Urine Negative (Negative); PH, Urine 5.5 (5.0-8.0); Protein,Urine Negative (Negative); RBC,Urine <1 /hpf (0-5); Squamous Epithelial Cell,Urine <1 /hpf (0-4); Urobilinogen,Urine <2.0 mg/dL (<2.0); WBC,Urine <1 /hpf (0-5)
[2025-01-26 06:00] VITALS: BP 132/62; PULSE 77; RESP 18
[2025-01-26 06:02] LABS: Influenza A Detected (Not Detectd); Influenza B Not Detected (Not Detectd); RSV Not Detected (Not Detectd)
== END 2025-01-26 06:26 | disposition home or self-care (01) ==
LOC: EC 02:06
DX: R10.31 Right lower quadrant pain (principal); R31.29 Other microscopic hematuria; J10.1 Influenza due to other identified influenza virus with other respiratory manifestations; Z87.891 Personal history of nicotine dependence; Z91.013 Allergy to seafood; Z91.041 Radiographic dye allergy status; Z91.048 Other nonmedicinal substance allergy status; Z88.8 Allergy status to other drugs, medicaments and biological substances
CPT/HCPCS: 96374; 96375; 96376; 96361; 36415; 80053; 82150; 83605; 83690; 85025; 85610; 85730; 81001; 87636; 74176; 99285; J2270; J1200; J1630; J2405; J3490; J1171; J1885

== ENCOUNTER 2025-03-27 07:45 | Emergency (ER) | payer OTHER ==
[2025-03-27 07:49] VITALS: TEMP 97.9
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
[2025-03-27] MEDS: KETOROLAC 15 MG/ML 1 ML VIAL IVP STA (08:04)
[2025-03-27] MEDS: LORazepam 2 MG/ML INJ IV STA (08:05)
[2025-03-27] MEDS: diphenhydrAMINE 50 MG/ML 1 ML VIAL IVP STA (08:06)
[2025-03-27] MEDS: FAMOTIDINE 20 MG/2 ML VIAL IV STA (08:07)
[2025-03-27] MEDS: SODIUM CHLORIDE 0.9% 1,000 ML IV ONE (08:09)
[2025-03-27 08:10] LABS: Basophils # (A) 0.05 10*3/uL (0.00-0.10); Basophils % (A) 0.7 %; Eosinophils # (A) 0.27 10*3/uL (0.04-0.35); Eosinophils % (A) 3.9 %; HCT 40.4 % (39.6-50.0); HGB 13.6 g/dL (13.0-17.0); Lymphocytes # (A) 2.73 10*3/uL (0.90-5.00); Lymphocytes % (A) 39.8 %; MCH 28.4 pg (27.0-32.0); MCHC 33.7 g/dL (32.0-37.0); MCV 84.3 fL (80.0-97.0); Monocytes # (A) 0.96 10*3/uL (0.20-1.00); Neutrophils # (A) 2.84 10*3/uL (1.80-7.70); Neutrophils % (A) 41.5 %; Platelet Count 191 10*3/uL (140-440); RBC 4.79 10*6/uL (4.40-5.60); RDW 14.9 % (11.5-14.5); WBC 6.86 10*3/uL (4.50-10.00)
[2025-03-27] MEDS: ONDANSETRON 4 MG/2 ML VIAL IVP STA ×2 (08:13→09:02)
[2025-03-27 08:22] LABS: INR 0.9 (<1.2); Partial Thromboplastin Time 24.8 sec (22.0-30.0); Prothrombin Time 9.9 sec (10.0-12.5)
[2025-03-27 08:23] LABS: ALT 23 U/L (4-49); AST 26 U/L (17-59); African American GFR (CKD) 72 (>60 ml/min/1.73 sqM); Albumin 4.6 g/dL (3.5-5.0); Alkaline Phosphatase 142 U/L (38-126); Amylase 73 U/L (30-110); Anion Gap 12 mmol/L; Blood Urea Nitrogen 21 mg/dL (9-20); Calcium 9.9 mg/dL (8.4-10.2); Carbon Dioxide 22 mmol/L (22-30); Chloride 107 mmol/L (98-107); Glucose 107 mg/dL (74-99); Lipase 126 U/L (23-300); Non-African American GFR(CKD) 62 (>60 ml/min/1.73 sqM); Potassium 4.4 mmol/L (3.5-5.1); Sodium 141 mmol/L (137-145); Total Bilirubin 0.6 mg/dL (0.2-1.3); Total Protein 8.2 g/dL (6.3-8.2)
--- NOTE | 2025-03-27 08:49 | XR ---
EXAMINATION TYPE: XR KUB DATE OF EXAM: 03/27/2025 8:44 AM COMPARISON: 01/08/2024 CLINICAL INDICATION: Male, 59 years old with history of abdominal pain, TECHNIQUE: Single view of the abdomen. FINDINGS: Small bowel demonstrates no evidence for dilatation or air fluid levels. Gas and fecal material is seen in non-distended colon. No convincing evidence for pneumoperitoneum. No unusual calcifications. The lung bases are clear. The osseous structures are intact. IMPRESSION: 1. Overall nonobstructive bowel gas pattern. [facility], , 03/27/2025 8:46 AM
[2025-03-27] MEDS: HYDROmorphone 1 MG/ML 1 ML SYRINGE IVP STA (09:05)
[2025-03-27] MEDS: droPERidol 5 MG/2 ML VIAL IVP ONE (10:19)
[2025-03-27 10:21] VITALS: BP 158/100; PULSE 64; RESP 20
== END 2025-03-27 11:50 | disposition home or self-care (01) ==
LOC: EC 07:45
DX: R10.9 Unspecified abdominal pain (principal); K22.89 Other specified disease of esophagus; G89.29 Other chronic pain; Z87.891 Personal history of nicotine dependence; Z91.02 Food additives allergy status; Z91.013 Allergy to seafood; Z91.041 Radiographic dye allergy status; Z88.8 Allergy status to other drugs, medicaments and biological substances
CPT/HCPCS: 36415; 80053; 82150; 83690; 85025; 85610; 85730; 74018; 99285; 96374; 96375; 96376; 96361; J2060; J1200; J2405; J1171; J1885; J1790; J1308

== ENCOUNTER 2025-03-29 01:40 | Emergency (ER) | payer OTHER ==
[2025-03-29 01:50] VITALS: TEMP 98.8
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
[2025-03-29 02:28] LABS: Basophils # (A) 0.03 10*3/uL (0.00-0.10); Basophils % (A) 0.5 %; Eosinophils # (A) 0.07 10*3/uL (0.04-0.35); Eosinophils % (A) 1.2 %; HCT 39.3 % (39.6-50.0); HGB 13.3 g/dL (13.0-17.0); Lymphocytes # (A) 2.59 10*3/uL (0.90-5.00); Lymphocytes % (A) 44.7 %; MCH 28.3 pg (27.0-32.0); MCHC 33.8 g/dL (32.0-37.0); MCV 83.6 fL (80.0-97.0); Mean Platelet Volume 10.3 fL (9.5-12.2); Monocytes # (A) 0.84 10*3/uL (0.20-1.00); Monocytes % (A) 14.5 %; Neutrophils # (A) 2.26 10*3/uL (1.80-7.70); Neutrophils % (A) 38.9 %; Platelet Count 177 10*3/uL (140-440); RDW 14.6 % (11.5-14.5)
[2025-03-29] MEDS: HYDROmorphone 1 MG/ML 1 ML SYRINGE IVP STA (02:30)
[2025-03-29] MEDS: LORazepam 2 MG/ML INJ IV STA (02:31)
[2025-03-29] MEDS: droPERidol 5 MG/2 ML VIAL IVP ONE (02:32)
[2025-03-29] MEDS: PANTOPRAZOLE 40 MG/10 ML VIAL IVP STA (02:33)
[2025-03-29] MEDS: SODIUM CHLORIDE 0.9% 1,000 ML IV SCH (02:34)
[2025-03-29] MEDS: SODIUM CHLORIDE 0.9% 1,000 ML IV ONE (02:34)
[2025-03-29 02:44] LABS: ALT 29 U/L (4-49); African American GFR (CKD) 87 (>60 ml/min/1.73 sqM); Amylase 62 U/L (30-110); Anion Gap 12 mmol/L; Blood Urea Nitrogen 19 mg/dL (9-20); Carbon Dioxide 20 mmol/L (22-30); Chloride 106 mmol/L (98-107); Glucose 106 mg/dL (74-99); Lipase 107 U/L (23-300); Non-African American GFR(CKD) 75 (>60 ml/min/1.73 sqM); Sodium 138 mmol/L (137-145)
[2025-03-29 02:47] LABS: AST 37 U/L (17-59); Albumin 4.8 g/dL (3.5-5.0); Alkaline Phosphatase 106 U/L (38-126); Potassium 4.6 mmol/L (3.5-5.1); Total Protein 8.5 g/dL (6.3-8.2)
[2025-03-29 03:13] LABS: Partial Thromboplastin Time 24.6 sec (22.0-30.0)
--- NOTE | 2025-03-29 05:07 | CT ---
EXAM: CT Abdomen and Pelvis Without Intravenous Contrast CLINICAL HISTORY: ITS.REASON CT Reason: abdominal pain TECHNIQUE: Axial computed tomography images of the abdomen and pelvis without intravenous contrast. CTDI is 12.8 mGy and DLP is 980.7 mGy-cm. This CT exam was performed using one or more of the following dose reduction techniques: automated exposure control, adjustment of the mA and/or kV according to patient size, and/or use of iterative reconstruction technique. COMPARISON: CT dated 01/26/2025. FINDINGS: Lung bases: Unremarkable. No mass. No consolidation. ABDOMEN: Liver: Mild hepatomegaly. Findings suggestive of hepatic steatosis. Gallbladder and bile ducts: The gallbladder is not visualized. No ductal dilation. Pancreas: Unremarkable. No ductal dilation. Spleen: Unremarkable. No splenomegaly. Adrenals: Unremarkable. No mass. Kidneys and ureters: Bosniak type I left renal cyst which does not require follow-up. Stomach and bowel: Nonspecific mid gastric wall thickening. Mild mid to distal rectal wall thickening. Mild to moderate colonic stool burden. No evidence of obstruction. Mild to prominent fluid-filled loops of small bowel are seen within the abdomen and pelvis with mild small bowel wall thickening. Fluid density is seen within the colonic lumen. No evidence of obstruction. PELVIS: Appendix: No findings to suggest acute appendicitis. Bladder: Unremarkable. No stones. Reproductive: Unremarkable as visualized. ABDOMEN and PELVIS: Intraperitoneal space: Unremarkable. No free air. No significant fluid collection. Bones/joints: Degenerative changes are seen within the spine and hips. Posterior spinal fusion of L2-L5. No acute fracture. No dislocation. Soft tissues: Unremarkable. Vasculature: Calcifications are seen within a nondilated aorta. Lymph nodes: Unremarkable. No enlarged lymph nodes. IMPRESSION: 1. Nonspecific mid gastric wall thickening. Consider nonemergent outpatient GI consultation for further evaluation. 2. Findings suggestive of infectious or inflammatory enterocolitis. No evidence of obstruction.
[2025-03-29 05:32] VITALS: BP 161/96; PULSE 93; RESP 18
== END 2025-03-29 05:33 | disposition home or self-care (01) ==
LOC: EC 01:40
DX: R10.9 Unspecified abdominal pain (principal); Z87.891 Personal history of nicotine dependence; Z91.041 Radiographic dye allergy status; Z91.013 Allergy to seafood; Z88.8 Allergy status to other drugs, medicaments and biological substances; Z76.0 Encounter for issue of repeat prescription
CPT/HCPCS: 36415; 80053; 82150; 83605; 83690; 85025; 85610; 85730; 74176; 99285; 96374; 96375 ×3; 96361 ×3; J2060; J1171; J1790; J2470

== ENCOUNTER 2025-06-15 10:52 | Emergency (ER) | payer OTHER ==
[2025-06-15] MEDS: LORazepam 1 MG/0.5 ML VIAL IV STA (11:27)
[2025-06-15] MEDS: PANTOPRAZOLE 40 MG/10 ML VIAL IVP STA (11:29)
[2025-06-15] MEDS: SODIUM CHLORIDE 0.9% 1,000 ML IV ONE ×2 (11:30→12:42)
[2025-06-15 11:39] LABS: Basophils # (A) 0.02 10*3/uL (0.00-0.10); Basophils % (A) 0.4 %; Eosinophils # (A) 0.12 10*3/uL (0.04-0.35); Eosinophils % (A) 2.4 %; HCT 39.0 % (39.6-50.0); HGB 12.8 g/dL (13.0-17.0); Lymphocytes # (A) 1.69 10*3/uL (0.90-5.00); Lymphocytes % (A) 33.7 %; MCH 28.4 pg (27.0-32.0); MCHC 32.8 g/dL (32.0-37.0); MCV 86.5 fL (80.0-97.0); Monocytes # (A) 0.59 10*3/uL (0.20-1.00); Monocytes % (A) 11.8 %; Neutrophils # (A) 2.58 10*3/uL (1.80-7.70); Neutrophils % (A) 51.5 %; Platelet Count 209 10*3/uL (140-440); RBC 4.51 10*6/uL (4.40-5.60); RDW 14.4 % (11.5-14.5); WBC 5.01 10*3/uL (4.50-10.00)
[2025-06-15] MEDS: HYDROmorphone 1 MG/ML 1 ML SYRINGE IVP STA ×2 (11:44→12:00)
[2025-06-15 11:50] LABS: ALT 23 U/L (4-49); African American GFR (CKD) 87 (>60 ml/min/1.73 sqM); Albumin 4.8 g/dL (3.5-5.0); Amylase 67 U/L (30-110); Anion Gap 12 mmol/L; Blood Urea Nitrogen 23 mg/dL (9-20); Calcium 9.9 mg/dL (8.4-10.2); Carbon Dioxide 21 mmol/L (22-30); Chloride 108 mmol/L (98-107); Glucose 106 mg/dL (74-99); Lipase 140 U/L (23-300); Non-African American GFR(CKD) 75 (>60 ml/min/1.73 sqM); Sodium 141 mmol/L (137-145); Total Protein 8.5 g/dL (6.3-8.2)
[2025-06-15 11:51] LABS: AST 32 U/L (17-59); Alkaline Phosphatase 132 U/L (38-126); INR 0.9 (<1.2); Partial Thromboplastin Time 24.7 sec (22.0-30.0); Potassium 4.2 mmol/L (3.5-5.1); Prothrombin Time 10.3 sec (10.0-12.5)
[2025-06-15] MEDS: diphenhydrAMINE 50 MG/ML 1 ML VIAL IVP STA (12:39)
[2025-06-15] MEDS: HALOPERIDOL LACTATE 5 MG/ML 1 ML VIAL IVP PRN (12:42)
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
--- NOTE | 2025-06-15 13:54 | CT ---
EXAMINATION TYPE: CT abdomen pelvis wo con CT DLP: 716.10 mGycm, Automated exposure control for dose reduction was used. DATE OF EXAM: 06/15/2025 1:50 PM COMPARISON: CT abdomen pelvis 03/29/2025 CLINICAL INDICATION:Male, 59 years old with history of intractable generalized abd pain; Intractable generalized abdominal pain TECHNIQUE: Standard CT of the abdomen and pelvis without IV or oral contrast. Lack of IV or oral co ntrast limits evaluation of solid and hollow organ viscera. Coronal and sagittal reformats were perfo rmed. FINDINGS: LOWER CHEST: Coronary artery calcifications. Mildly prominent heart size. The visualized lung bases a re clear. ABDOMEN LIVER: Unremarkable noncontrast appearance GALLBLADDER AND BILE DUCTS: Gallbladder is not visualized and appears to be surgically absent. No bethany iary ductal dilatation. PANCREAS: Unremarkable noncontrast appearance SPLEEN: Unremarkable noncontrast appearance ADRENAL GLANDS: Unremarkable noncontrast appearance. KIDNEYS AND URETERS: No evidence of hydronephrosis or renal calculus. Subcentimeter left renal upper pole hypodense focus likely representing a cyst. No follow up recommended. PELVIS BLADDER: Underdistended but grossly unremarkable. REPRODUCTIVE: Unremarkable noncontrast appearance ABDOMEN & PELVIS STOMACH AND BOWEL: Stomach and duodenum are unremarkable. No focal bowel wall thickening or surroundi ng inflammatory changes. No significant diverticulosis identified. The appendix is not identified. No significant inflammatory changes within the right lower quadrant. No evidence of bowel obstruction. PERITONEUM: No evidence of pneumoperitoneum or free fluid. VASCULATURE: Mild atherosclerotic calcifications are present throughout the abdominal aorta and its b ranches. No evidence of aortic aneurysm. MUSCULOSKELETAL: No acute osseous abnormalities. Postsurgical changes with posterior bilateral pedicu lar screws and rods involving L2-L5. Advanced multilevel degenerative disc disease. Bilateral osteoar thritic changes of both hips. LYMPH NODES: No gross evidence for lymphadenopathy. SOFT TISSUE/ABDOMINAL WALL: Unremarkable IMPRESSION: No CT evidence for acute abdominal/pelvic process within limitations of a noncontrast exam. [facility], , 06/15/2025 1:52 PM
[2025-06-15] MEDS: MAG HYDROX/AL HYDROX/SIMETH 30 ML CUP PO STA (13:55)
[2025-06-15] MEDS: LIDOCAINE VISCOUS 2% 15 ML CUP PO ONE (13:56)
[2025-06-15 14:08] LABS: Bilirubin,Urine Negative (Negative); Blood,Urine Trace (Negative); Color,Urine Light Yellow; Glucose,Urine (UA) Negative (Negative); Hyaline Casts,Urine 1 /lpf (0-2); Ketones,Urine Negative (Negative); Leukocyte Esterase,Urine Negative (Negative); Mucus,Urine Rare /hpf; Nitrite,Urine Negative (Negative); PH, Urine 5.5 (5.0-8.0); Protein,Urine Negative (Negative); RBC,Urine <1 /hpf (0-5); Specific Gravity,Urine 1.023 (1.001-1.035); Urobilinogen,Urine <2.0 mg/dL (<2.0); WBC,Urine 1 /hpf (0-5)
[2025-06-15] MEDS: ONDANSETRON 4 MG ODT STARTER PACK TAB BTL PO STA (14:35)
[2025-06-15 14:43] VITALS: BP 131/56; PULSE 84; RESP 18; TEMP 97.8
== END 2025-06-15 14:43 | disposition home or self-care (01) ==
LOC: EC 10:52
DX: G89.29 Other chronic pain (principal); R10.9 Unspecified abdominal pain; Z87.891 Personal history of nicotine dependence; Z91.041 Radiographic dye allergy status; Z91.013 Allergy to seafood; Z88.8 Allergy status to other drugs, medicaments and biological substances
CPT/HCPCS: 36415; 93005; 80053; 82150; 83605; 83690; 85025; 85610; 85730; 81001; 74176; 99285; 96374; 96375; 96361 ×2; J2060; J1200; J1630; J1171; S0119; J2470